=== PATIENT | male | born 1965 | race Caucasian/White ===

== ENCOUNTER → 2016-03-17 | Outpatient (REF) | payer MEDICAID ==
[2016-03-17 12:52] LABS: BASO % 0.3 % (0.0-1.0); EOS # 0.2 K/mm3 (0.0-0.50); EOS % 3.7 % (0.0-3.0); LARGE UNSTAINED CELL # 0.1 K/mm3 (0.0-0.4); LARGE UNSTAINED CELL % 1.8 % (0.0-4.0); MEAN CORPUSCULAR HEMOGLOBIN 26.4 pg (27.0-33.0); MONO # 0.3 K/mm3 (0.0-0.8); MONO % 4.3 % (0.0-5.0); NEUTROPHILS % 59.9 % (36.0-66.0); PLATELET COUNT, AUTOMATED 348 k/mm3 (150-450); RED CELL DISTRIBUTION WIDTH 14.6 % (11.5-14.5); WHITE BLOOD COUNT 6.7 K/mm3 (4.0-10.0)
[2016-03-17 13:45] LABS: PERCENT SATURATION 17.5 % (19.7-37.4)
== END ==
LOC: M SFHCADAM 09:48
PROVIDERS: ATTEND Physician Assistant Medical
DX: D50.9 Iron deficiency anemia, unspecified (principal)

== ENCOUNTER → 2016-04-28 | Outpatient (REF) ==
--- NOTE | 2016-04-28 11:41 | REP ---
PARTIAL LUMBAR SPINE, FOUR VIEWS: HISTORY: Degenerative disc disease. COMPARISON: 11/10/2007. There is no acute fracture or subluxation. The L3-4 through L5-S1 intervertebral discs are decreased in height consistent with disc degeneration. Osteophytes are present on L3 and 4. Calcifications are present overlying the right kidney consistent with nephrolithiasis. IMPRESSION: 1. Degenerative change as described above. 2. Right nephrolithiasis. Signed by Martin Schroeder MD 04/28/2016 11:45 A
== END ==
LOC: M SMT 10:22
PROVIDERS: ATTEND Internal Medicine
DX: Z02.1 Encounter for pre-employment examination (principal)

== ENCOUNTER → 2016-06-03 | Outpatient (CLI) | payer OTHER ==
[2016-06-03 16:54] LABS: ANION GAP 10 MEQ/L (8-16); BLOOD UREA NITROGEN 7 MG/DL (7-18); CALCIUM LEVEL 9.2 MG/DL (8.5-10.1); CARBON DIOXIDE LEVEL 24 MEQ/L (21-32); CHLORIDE LEVEL 108 MEQ/L (98-107); GLOMERULAR FILTRATION RATE > 60.0 (>60); GLUCOSE, FASTING 117 MG/DL (70-105); POTASSIUM SERUM 3.5 MEQ/L (3.5-5.1); SODIUM LEVEL 142 MEQ/L (136-145)
--- NOTE | 2016-06-04 05:40 | ECGEPIP ---
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
== END ==
LOC: M LAB 15:45
PROVIDERS: ATTEND Orthopaedic Surgery
DX: Z01.818 Encounter for other preprocedural examination (principal); I10 Essential (primary) hypertension

== ENCOUNTER → 2016-06-22 | Outpatient (REF) | payer MEDICAID ==
[2016-06-22 13:53] LABS: BASO % 0.3 % (0.0-1.0); EOS # 0.2 K/mm3 (0.0-0.50); EOS % 2.4 % (0.0-3.0); LARGE UNSTAINED CELL # 0.1 K/mm3 (0.0-0.4); LARGE UNSTAINED CELL % 1.6 % (0.0-4.0); LYMPH # 2.3 K/mm3 (1.5-4.5); LYMPH % 30.7 % (24.0-44.0); MEAN CORPUSCULAR HGB CONC 32.3 g/dl (32.0-36.5); MEAN CORPUSCULAR VOLUME 80.4 fl (80.0-96.0); MONO # 0.4 K/mm3 (0.0-0.8); NEUTROPHILS # 4.4 K/mm3 (1.8-7.7); PLATELET COUNT, AUTOMATED 308 k/mm3 (150-450); RED CELL DISTRIBUTION WIDTH 15.1 % (11.5-14.5); WHITE BLOOD COUNT 7.4 K/mm3 (4.0-10.0)
[2016-06-22 14:21] LABS: PERCENT SATURATION 13.7 % (19.7-37.4)
== END ==
LOC: M SFHCADAM 07:39
PROVIDERS: ATTEND Physician Assistant Medical
DX: D50.9 Iron deficiency anemia, unspecified (principal)

== ENCOUNTER 2016-07-13 07:50 | Outpatient (CLI) | payer OTHER ==
[~2016-07-13 07:50] MED LIST: ATOR1TAB18 PO; FERR325T3 PO; IMIT100T PO; LISI20TA PO; OXYC1TAB23 PO; PAXI20TA3 PO; PRED1SUS OS; TOPA50TA7 PO; TRAM50TA2 PO; VITA1TAB27 PO
[2016-07-13] MEDS ORDERED: IRON SUCROSE 25 MG in NS 50 ML IV ONE (08:30)
[2016-07-13] MEDS ORDERED: IRON SUCROSE 75 MG in NS 100 ML IV ONE (09:30)
[2016-07-13] MEDS ORDERED: FISH1000 PO (11:30)
== END 2016-07-13 11:15 | disposition home or self-care (01) ==
LOC: M INFU 07:50
PROVIDERS: ATTEND Physician Assistant Medical
DX: D50.9 Iron deficiency anemia, unspecified (principal); Z87.891 Personal history of nicotine dependence; Z79.899 Other long term (current) drug therapy
CPT/HCPCS: 96365; 96366; J1756

== ENCOUNTER → 2016-07-15 | Outpatient (CLI) | payer OTHER ==
[~2016-07-15] MED LIST changes: +FISH1000 PO
[2016-07-15 11:33] LABS: FREE T4 0.86 NG/DL (0.76-1.46)
== END ==
LOC: M LAB 10:26
PROVIDERS: ATTEND Physician Assistant Medical
DX: D64.9 Anemia, unspecified (principal)

== ENCOUNTER → 2016-07-19 | Outpatient (REF) | payer OTHER | LOC: M LAB REF 09:23 | PROVIDERS: ATTEND Physician Assistant Medical | DX: R19.8 Other specified symptoms and signs involving the digestive system and abdomen (principal) ==

== ENCOUNTER 2016-07-20 07:58 | Outpatient (CLI) | payer OTHER ==
[~2016-07-20] VITALS: Ht 152.4 cm; Wt 129.0 kg
[2016-07-20] MEDS ORDERED: IRON SUCROSE 200 MG in NS 200 ML IV ONE (09:00)
== END 2016-07-20 10:40 | disposition home or self-care (01) ==
LOC: M INFU 07:58
PROVIDERS: ATTEND Physician Assistant Medical
DX: D50.9 Iron deficiency anemia, unspecified (principal); Z79.899 Other long term (current) drug therapy; Z87.891 Personal history of nicotine dependence
CPT/HCPCS: 96365; 96366; J1756

== ENCOUNTER → 2016-07-24 | Outpatient (CLI) | payer OTHER ==
[~2016-07-24] MED LIST changes: +E-Z-PAQUE 96% w/w SUSP 176GM BTL As Ordered ONE
--- NOTE | 2016-07-24 16:27 | REP ---
SMALL BOWEL FOLLOW-THROUGH: The procedure was performed under the direct supervision of Dr. Mckee. The images were reviewed with Dr. Mckee. The supervisor gelatin plant film shows no organomegaly or pathological masses. The intestinal gas pattern is nonspecific. There are two calcifications overlying the right kidney likely representing nephrolithiasis. Liquid barium was administered and the barium column was followed through the small bowel to the level of the terminal ileum. Small bowel transit time was approximately 70 minutes. During fluoroscopy gentle palpation shows all loops are freely movable and pliable. There are no fixed or angulated loops. The small bowel mucosal pattern is normal in course and caliber. There is no transition to suggest a partial small bowel obstruction. Spot filming of terminal ileum shows it to be unremarkable. IMPRESSION: There are two calcifications overlying the right kidney likely representing nephrolithiasis, otherwise unremarkable small bowel follow through examination. 1 minutes and 8 seconds of fluoroscopy time was utilized for this procedure. Reviewed by ADDIE Mckeon 07/24/2016 04:49 PEdited and Signed by Akhil Mckee MD 07/27/2016 08:34 A
== END ==
LOC: M RAD 08:25
PROVIDERS: ATTEND Physician Assistant Medical
DX: R19.8 Other specified symptoms and signs involving the digestive system and abdomen (principal); D64.9 Anemia, unspecified; N20.0 Calculus of kidney

== ENCOUNTER 2016-07-27 07:58 | Outpatient (CLI) | payer OTHER ==
[~2016-07-27] VITALS: Ht 152.4 cm; Wt 129.5 kg
[~2016-07-27 07:58] MED LIST changes: -E-Z-PAQUE 96% w/w SUSP 176GM BTL As Ordered ONE
[2016-07-27] MEDS ORDERED: IRON SUCROSE 200 MG in NS 200 ML IV ONE (08:30)
== END 2016-07-27 10:50 | disposition home or self-care (01) ==
LOC: M INFU 07:58
PROVIDERS: ATTEND Physician Assistant Medical
DX: D50.9 Iron deficiency anemia, unspecified (principal); Z87.891 Personal history of nicotine dependence; Z79.899 Other long term (current) drug therapy
CPT/HCPCS: 96365; 96366; J1756

== ENCOUNTER → 2016-07-31 | Outpatient (CLI) | payer OTHER ==
[~2016-07-31] VITALS: Ht 177.8 cm; Wt 133.8 kg
[~2016-07-31] MED LIST changes: +LIDOCAINE 2% INJ 100 MG/5 ML SDV (FOR ANES.) As Ordered ONE; +NS 1,000 ML IV SCH; +PROPOFOL 200 MG/20 ML VIAL As Ordered ONE
--- NOTE | 2016-07-31 09:07 | ROOR ---
Patient Name: Jose Butler Procedure Date: 07/31/2016 8:55 AM Date of : 1965 Age: 51 Room: [facility] Gender: Male Note Status: Finalized Procedure: Upper GI endoscopy Indications: Iron deficiency anemia Providers: Cj OLIVO MD Referring MD: YOLANDE Melendez Requesting Provider: Medicines: Monitored Anesthesia Care Complications: No immediate complications. Procedure: Pre-Anesthesia Assessment: - The heart rate, respiratory rate, oxygen saturations, blood pressure, adequacy of pulmonary ventilation, and response to care were monitored throughout the procedure. The Endoscope was introduced through the mouth, and advanced to the third part of duodenum. The upper GI endoscopy was accomplished without difficulty. The patient tolerated the procedure well. Findings: The esophagus was normal. The stomach was normal. The examined duodenum was normal. Impression: - Normal esophagus. - Normal stomach. - Normal examined duodenum. - No specimens collected. Recommendation: - Continue present medications. Cj Olivo MD Cj OLIVO MD 07/31/2016 9:06:39 AM This report has been signed electronically. Number of Addenda: 0 Note Initiated On: 07/31/2016 8:55 AM Estimated Blood Loss: Estimated blood loss: none.
--- NOTE | 2016-07-31 09:26 | ROOR ---
Patient Name: Jose Butler Procedure Date: 07/31/2016 8:57 AM Date of : 1965 Age: 51 Room: [facility] Gender: Male Note Status: Finalized Procedure: Colonoscopy Indications: Iron deficiency anemia Providers: Cj OLIVO MD Referring MD: YOLANDE Melendez Requesting Provider: Medicines: Monitored Anesthesia Care Complications: No immediate complications. Procedure: Pre-Anesthesia Assessment: - The heart rate, respiratory rate, oxygen saturations, blood pressure, adequacy of pulmonary ventilation, and response to care were monitored throughout the procedure. The Colonoscope was introduced through the anus and advanced to 5 cm into the ileum. The colonoscopy was performed without difficulty. The patient tolerated the procedure well. The quality of the bowel preparation was good. Findings: The perianal and digital rectal examinations were normal. (Exam: Complete, Prep: Good or Excellent.) Two sessile polyps were found in the cecum. The polyps were diminutive in size. These polyps were removed with a cold snare. Resection and retrieval were complete. A few medium-mouthed diverticula were found in the sigmoid colon. Small Internal Hemorrhoids. The exam was otherwise without abnormality on direct and retroflexion views. Impression: - Two diminutive polyps in the cecum, removed with a cold snare. Resected and retrieved. - Mild diverticulosis in the sigmoid colon. - Small Internal Hemorrhoids. - The colon is otherwise normal on direct and retroflexion views. Recommendation: - Telephone endoscopist for pathology results in 2 weeks. - If the pathology report reveals adenomatous tissue, then repeat the colonoscopy for surveillance in 5 years. - If the pathology report indicates hyperplastic polyp, then repeat colonoscopy for screening purposes in 10 years. Cj Olivo MD Cj OLIVO MD 07/31/2016 9:26:07 AM This report has been signed electronically. Number of Addenda: 0 Note Initiated On: 07/31/2016 8:57 AM Estimated Blood Loss: Estimated blood loss: none.
[2016-07-31 09:45] VITALS: BP 134/88
== END | disposition home or self-care (01) ==
LOC: M OPP 08:17
PROVIDERS: ATTEND Internal Medicine Gastroenterology
DX: D50.9 Iron deficiency anemia, unspecified (principal); D12.0 Benign neoplasm of cecum; K57.30 Diverticulosis of large intestine without perforation or abscess without bleeding; K64.8 Other hemorrhoids; R19.4 Change in bowel habit; E78.5 Hyperlipidemia, unspecified; R60.0 Localized edema; R12 Heartburn; R23.3 Spontaneous ecchymoses; M19.90 Unspecified osteoarthritis, unspecified site; M54.2 Cervicalgia; M54.89 Other dorsalgia; F41.9 Anxiety disorder, unspecified; F32.9 Major depressive disorder, single episode, unspecified; G43.909 Migraine, unspecified, not intractable, without status migrainosus; G47.8 Other sleep disorders; G47.30 Sleep apnea, unspecified; R06.83 Snoring; Z79.899 Other long term (current) drug therapy

== ENCOUNTER → 2016-08-06 | Outpatient (REF) | payer OTHER ==
[~2016-08-06] MED LIST changes: -LIDOCAINE 2% INJ 100 MG/5 ML SDV (FOR ANES.) As Ordered ONE; -NS 1,000 ML IV SCH; -PROPOFOL 200 MG/20 ML VIAL As Ordered ONE
[2016-08-06 16:12] LABS: ANION GAP 12 MEQ/L (8-16); BLOOD UREA NITROGEN 14 MG/DL (7-18); CALCIUM LEVEL 8.9 MG/DL (8.5-10.1); CARBON DIOXIDE LEVEL 23 MEQ/L (21-32); CHLORIDE LEVEL 110 MEQ/L (98-107); CREATININE FOR GFR 0.77 MG/DL (0.70-1.30); GLOMERULAR FILTRATION RATE > 60.0 (>56); GLUCOSE, FASTING 90 MG/DL (70-105); SODIUM LEVEL 145 MEQ/L (136-145)
== END ==
LOC: M LABDRAW1 15:40
PROVIDERS: ATTEND Orthopaedic Surgery
DX: Z01.818 Encounter for other preprocedural examination (principal)

== ENCOUNTER → 2016-09-11 | Outpatient (REF) | payer OTHER ==
[~2016-09-11] MED LIST changes: -ATOR1TAB18 PO; +ATOR80TA59 PO; +PAXI20TA29 PO; -PAXI20TA3 PO; -TOPA50TA7 PO; +TOPA50TA8 PO
[2016-09-11 12:09] LABS: BASO % 0.3 % (0.0-1.0); EOS # 0.2 K/mm3 (0.0-0.50); LARGE UNSTAINED CELL # 0.1 K/mm3 (0.0-0.4); LARGE UNSTAINED CELL % 1.2 % (0.0-4.0); LYMPH # 2.4 K/mm3 (1.5-4.5); LYMPH % 27.5 % (24.0-44.0); MEAN CORPUSCULAR HGB CONC 33.6 g/dl (32.0-36.5); MEAN CORPUSCULAR VOLUME 80.2 fl (80.0-96.0); MONO # 0.4 K/mm3 (0.0-0.8); MONO % 4.8 % (0.0-5.0); NEUTROPHILS # 5.4 K/mm3 (1.8-7.7); NEUTROPHILS % 64.2 % (36.0-66.0); PLATELET COUNT, AUTOMATED 333 k/mm3 (150-450); RED CELL DISTRIBUTION WIDTH 15.1 % (11.5-14.5); WHITE BLOOD COUNT 8.5 K/mm3 (4.0-10.0)
[2016-09-11 12:25] LABS: ALBUMIN 3.7 GM/DL (3.2-5.2); ALBUMIN/GLOBULIN RATIO 0.95 (1.00-1.93); ALKALINE PHOSPHATASE 121 U/L (45-117); ALT/SGPT 50 U/L (12-78); ANION GAP 9 MEQ/L (8-16); AST/SGOT 26 U/L (15-37); BILIRUBIN,TOTAL 0.4 MG/DL (0.2-1.0); BLOOD UREA NITROGEN 12 MG/DL (7-18); CALCIUM LEVEL 9.2 MG/DL (8.5-10.1); CARBON DIOXIDE LEVEL 24 MEQ/L (21-32); CHLORIDE LEVEL 109 MEQ/L (98-107); GLOMERULAR FILTRATION RATE > 60.0 (>56); GLUCOSE, FASTING 109 MG/DL (70-105); POTASSIUM SERUM 3.7 MEQ/L (3.5-5.1); SODIUM LEVEL 142 MEQ/L (136-145); TOTAL PROTEIN 7.6 GM/DL (6.4-8.2)
== END ==
LOC: M LABDRAW1 10:10
PROVIDERS: ATTEND Psychiatry & Neurology Neurology
DX: G43.711 Chronic migraine without aura, intractable, with status migrainosus (principal); G47.33 Obstructive sleep apnea (adult) (pediatric); G44.221 Chronic tension-type headache, intractable

== ENCOUNTER → 2016-09-24 | Outpatient (REF) | payer MEDICAID ==
[2016-09-24 12:41] LABS: BASO % 0.3 % (0.0-1.0); EOS # 0.1 K/mm3 (0.0-0.50); EOS % 1.7 % (0.0-3.0); LARGE UNSTAINED CELL # 0.1 K/mm3 (0.0-0.4); LARGE UNSTAINED CELL % 1.4 % (0.0-4.0); LYMPH # 2.3 K/mm3 (1.5-4.5); LYMPH % 28.9 % (24.0-44.0); MEAN CORPUSCULAR HEMOGLOBIN 27.4 pg (27.0-33.0); MEAN CORPUSCULAR HGB CONC 33.5 g/dl (32.0-36.5); MEAN CORPUSCULAR VOLUME 81.7 fl (80.0-96.0); MONO # 0.4 K/mm3 (0.0-0.8); NEUTROPHILS # 4.8 K/mm3 (1.8-7.7); NEUTROPHILS % 62.7 % (36.0-66.0); PLATELET COUNT, AUTOMATED 322 k/mm3 (150-450); RED CELL DISTRIBUTION WIDTH 15.1 % (11.5-14.5); WHITE BLOOD COUNT 7.6 K/mm3 (4.0-10.0)
[2016-09-24 13:19] LABS: PERCENT SATURATION 18.8 % (19.7-37.4)
== END ==
LOC: M SFHCADAM 08:17
PROVIDERS: ATTEND Physician Assistant Medical
DX: D50.9 Iron deficiency anemia, unspecified (principal)

== ENCOUNTER 2016-11-05 14:19 | Outpatient (CLI) | payer MEDICAID, OTHER ==
[2016-11-05] MEDS ORDERED: IRON SUCROSE 25 MG in NS 50 ML IV ONE (15:30)
[2016-11-05 15:46] VITALS: BP 122/74
[2016-11-05 15:52] VITALS: BP 136/76
[2016-11-05 16:00] VITALS: BP 132/75
[2016-11-05] MEDS: IRON SUCROSE 75 MG in NS 100 ML IV ONE ×2 (16:30→17:55)
[2016-11-05 17:55] VITALS: BP 136/82
[2016-11-05 18:15] VITALS: BP 134/79
== END 2016-11-05 18:30 | disposition home or self-care (01) ==
LOC: M INFU 14:19 → M MSPAV 14:20 → M INFU 18:30
PROVIDERS: ATTEND Physician Assistant Medical
DX: D50.9 Iron deficiency anemia, unspecified (principal); Z79.899 Other long term (current) drug therapy
CPT/HCPCS: 96365; 96366; J1756

== ENCOUNTER 2016-12-21 11:45 | Outpatient (CLI) | payer OTHER ==
[~2016-12-21] VITALS: Ht 177.8 cm; Wt 129.5 kg
[2016-12-21] MEDS: IRON SUCROSE 200 MG in NS 100 ML IV ONE (12:37)
== END 2016-12-21 14:30 | disposition home or self-care (01) ==
LOC: M INFU 11:45
PROVIDERS: ATTEND Physician Assistant Medical
DX: D50.9 Iron deficiency anemia, unspecified (principal); Z87.891 Personal history of nicotine dependence; Z79.899 Other long term (current) drug therapy
CPT/HCPCS: 96365; 96366; J1756

== ENCOUNTER 2016-12-28 11:42 | Outpatient (CLI) | payer OTHER ==
[~2016-12-28] VITALS: Ht 177.8 cm; Wt 129.5 kg
[2016-12-28] MEDS ORDERED: IRON SUCROSE 200 MG in NS 200 ML IV ONE (13:00)
== END 2016-12-28 15:20 | disposition home or self-care (01) ==
LOC: M INFU 11:42
PROVIDERS: ATTEND Physician Assistant Medical
DX: D50.9 Iron deficiency anemia, unspecified (principal); I10 Essential (primary) hypertension; E78.00 Pure hypercholesterolemia, unspecified; E55.9 Vitamin D deficiency, unspecified; R51 Headache; R73.01 Impaired fasting glucose; M25.561 Pain in right knee; M23.611 Other spontaneous disruption of anterior cruciate ligament of right knee; Z87.820 Personal history of traumatic brain injury; Z79.891 Long term (current) use of opiate analgesic; Z87.891 Personal history of nicotine dependence
CPT/HCPCS: 96365; 96366; J1756

== ENCOUNTER 2017-01-25 08:01 | Outpatient (CLI) | payer OTHER ==
[~2017-01-25] VITALS: Ht 177.8 cm; Wt 129.5 kg
[2017-01-25] MEDS ORDERED: IRON SUCROSE 200 MG in NS 200 ML IV ONE (09:00)
[2017-01-25] MEDS ORDERED: IRON SUCROSE 25 MG in NS 50 ML IV ONE (09:00)
[2017-01-25] MEDS ORDERED: IRON SUCROSE 475 MG in NS 250 ML IV ONE (10:00)
== END 2017-01-25 11:45 | disposition home or self-care (01) ==
LOC: M INFU 08:01
PROVIDERS: ATTEND Physician Assistant Medical
DX: D50.9 Iron deficiency anemia, unspecified (principal); Z79.899 Other long term (current) drug therapy
CPT/HCPCS: 96365; 96366; J1756

== ENCOUNTER 2017-02-24 12:01 | Outpatient (CLI) | payer OTHER ==
[~2017-02-24] VITALS: Ht 177.8 cm; Wt 129.5 kg
[2017-02-24] MEDS ORDERED: IRON SUCROSE 200 MG in NS 250 ML IV ONE (12:30)
== END 2017-02-24 15:00 | disposition home or self-care (01) ==
LOC: M INFU 12:01
PROVIDERS: ATTEND Physician Assistant Medical
DX: D50.9 Iron deficiency anemia, unspecified (principal); Z79.891 Long term (current) use of opiate analgesic; Z79.899 Other long term (current) drug therapy; I10 Essential (primary) hypertension
CPT/HCPCS: 96365; 96366; J1756

== ENCOUNTER → 2017-05-14 | Outpatient (REF) | payer OTHER ==
[2017-05-14 12:51] LABS: BASO % 0.3 % (0.0-1.0); EOS # 0.2 10^3/uL (0.0-0.50); EOS % 1.4 % (0.0-3.0); HEMATOCRIT 45.1 % (42.0-52.0); HEMOGLOBIN 14.8 g/dl (14.0-18.0); IMMATURE GRANULOCYTE % 0.3 % (0-3.0); LYMPH # 2.3 10^3/uL (1.5-4.5); LYMPH % 21.3 % (24.0-44.0); MEAN CORPUSCULAR HEMOGLOBIN 26.8 pg (27.0-33.0); MEAN CORPUSCULAR HGB CONC 32.8 g/dl (32.0-36.5); MEAN CORPUSCULAR VOLUME 81.7 fl (80.0-96.0); MONO # 0.6 10^3/uL (0.0-0.8); MONO % 5.7 % (0.0-5.0); NEUTROPHILS # 7.6 10^3/uL (1.8-7.7); PLATELET COUNT, AUTOMATED 385 10^3/uL (150-450); RED BLOOD COUNT 5.52 10^6/uL (4.30-6.10); RED CELL DISTRIBUTION WIDTH 13.8 % (11.5-14.5); WHITE BLOOD COUNT 10.7 10^3/uL (4.0-10.0)
[2017-05-14 13:06] LABS: ALBUMIN 4.3 GM/DL (3.2-5.2); ALKALINE PHOSPHATASE 125 U/L (45-117); ALT/SGPT 24 U/L (12-78); ANION GAP 8 MEQ/L (8-16); AST/SGOT 13 U/L (7-37); BILIRUBIN,TOTAL 0.4 MG/DL (0.2-1.0); BLOOD UREA NITROGEN 13 MG/DL (7-18); CALCIUM LEVEL 9.2 MG/DL (8.5-10.1); CARBON DIOXIDE LEVEL 26 MEQ/L (21-32); CHLORIDE LEVEL 109 MEQ/L (98-107); CREATININE FOR GFR 0.94 MG/DL (0.70-1.30); GLOMERULAR FILTRATION RATE > 60.0 (>56); GLUCOSE, FASTING 102 MG/DL (70-100); POTASSIUM SERUM 3.7 MEQ/L (3.5-5.1); SODIUM LEVEL 143 MEQ/L (136-145); TOTAL PROTEIN 8.2 GM/DL (6.4-8.2)
== END ==
LOC: M LABNEURO 11:21
DX: G47.33 Obstructive sleep apnea (adult) (pediatric) (principal); G44.229 Chronic tension-type headache, not intractable; G43.009 Migraine without aura, not intractable, without status migrainosus

== ENCOUNTER → 2017-08-05 | Outpatient (REF) | payer OTHER ==
[2017-08-05 20:09] LABS: BASO % 0.4 % (0.0-1.0); EOS # 0.3 10^3/uL (0.0-0.50); EOS % 3.2 % (0.0-3.0); HEMATOCRIT 41.7 % (42.0-52.0); HEMOGLOBIN 13.8 g/dl (13.5-17.5); IMMATURE GRANULOCYTE % 0.3 % (0-3.0); LYMPH # 2.8 10^3/uL (1.5-4.5); LYMPH % 36.5 % (24.0-44.0); MEAN CORPUSCULAR HEMOGLOBIN 27.5 pg (27.0-33.0); MEAN CORPUSCULAR HGB CONC 33.1 g/dl (32.0-36.5); MEAN CORPUSCULAR VOLUME 83.1 fl (80.0-96.0); MONO # 0.5 10^3/uL (0.0-0.8); MONO % 6.3 % (0.0-5.0); NEUTROPHILS # 4.1 10^3/uL (1.8-7.7); NEUTROPHILS % 53.3 % (36.0-66.0); PLATELET COUNT, AUTOMATED 387 10^3/uL (150-450); RED BLOOD COUNT 5.02 10^6/uL (4.30-6.10); RED CELL DISTRIBUTION WIDTH 14.2 % (11.5-14.5); WHITE BLOOD COUNT 7.8 10^3/uL (4.0-10.0)
[2017-08-05 20:26] LABS: ALBUMIN 3.8 GM/DL (3.2-5.2); ALKALINE PHOSPHATASE 145 U/L (45-117); ALT/SGPT 21 U/L (12-78); ANION GAP 8 MEQ/L (8-16); AST/SGOT 10 U/L (7-37); BILIRUBIN,TOTAL 0.3 MG/DL (0.2-1.0); BLOOD UREA NITROGEN 15 MG/DL (7-18); CALCIUM LEVEL 8.8 MG/DL (8.5-10.1); CARBON DIOXIDE LEVEL 25 MEQ/L (21-32); CHLORIDE LEVEL 113 MEQ/L (98-107); CHOLESTEROL LEVEL 155 MG/DL (<200); CHOLESTEROL RISK RATIO 3.604 (<5); CREATININE FOR GFR 1.03 MG/DL (0.70-1.30); FERRITIN 938 NG/ML (26-388); GLOMERULAR FILTRATION RATE > 60.0 (>56); GLUCOSE, FASTING 129 MG/DL (70-100); HDL CHOLESTEROL 43 MG/DL (>40); IRON (FE) 58 UG/DL (65-175); LDL CHOLESTEROL 73.6 MG/DL (<100); NON-HDL-C 112 MG/DL; PERCENT SATURATION 20.4 % (19.7-50.0); POTASSIUM SERUM 3.7 MEQ/L (3.5-5.1); SODIUM LEVEL 146 MEQ/L (136-145); TOTAL 25(OH) VITAMIN D 28.1 NG/ML (30.0-100.0); TOTAL IRON BINDING CAPACITY 285 UG/DL (250-450); TRIGLYCERIDES LEVEL 192 MG/DL (<150)
== END ==
LOC: M SFHCADAM 16:09
DX: D50.9 Iron deficiency anemia, unspecified (principal); E78.4 Other hyperlipidemia; I10 Essential (primary) hypertension; E55.9 Vitamin D deficiency, unspecified

== ENCOUNTER → 2017-08-25 | Outpatient (CLI) | payer OTHER | LOC: M PAIN 14:00 | DX: M79.1 Myalgia (principal); M25.512 Pain in left shoulder; M54.5 Low back pain; M54.2 Cervicalgia; G89.29 Other chronic pain; I10 Essential (primary) hypertension; E78.5 Hyperlipidemia, unspecified; F32.9 Major depressive disorder, single episode, unspecified; F41.9 Anxiety disorder, unspecified; R73.01 Impaired fasting glucose; E55.9 Vitamin D deficiency, unspecified; G47.33 Obstructive sleep apnea (adult) (pediatric); E66.01 Morbid (severe) obesity due to excess calories; Z68.41 Body mass index [BMI] 40.0-44.9, adult; Z79.899 Other long term (current) drug therapy; Z87.820 Personal history of traumatic brain injury; Z87.891 Personal history of nicotine dependence | CPT/HCPCS: G0463 ==

== ENCOUNTER → 2017-09-22 | Outpatient (CLI) | payer OTHER | LOC: M PAIN 13:30 | DX: G89.29 Other chronic pain (principal); M79.1 Myalgia; M25.512 Pain in left shoulder; M54.5 Low back pain; M54.2 Cervicalgia; I10 Essential (primary) hypertension; E78.5 Hyperlipidemia, unspecified; F32.9 Major depressive disorder, single episode, unspecified; F41.9 Anxiety disorder, unspecified; R73.01 Impaired fasting glucose; E66.01 Morbid (severe) obesity due to excess calories; D50.9 Iron deficiency anemia, unspecified; G47.33 Obstructive sleep apnea (adult) (pediatric); M25.561 Pain in right knee; M25.562 Pain in left knee; Z68.41 Body mass index [BMI] 40.0-44.9, adult; Z87.891 Personal history of nicotine dependence; Z79.891 Long term (current) use of opiate analgesic; Z79.899 Other long term (current) drug therapy | CPT/HCPCS: G0463 ==

== ENCOUNTER → 2017-11-17 | Outpatient (CLI) | payer OTHER | LOC: M PAIN 10:30 | DX: M53.3 Sacrococcygeal disorders, not elsewhere classified (principal); M54.40 Lumbago with sciatica, unspecified side; I10 Essential (primary) hypertension; E78.5 Hyperlipidemia, unspecified; F41.9 Anxiety disorder, unspecified; F32.9 Major depressive disorder, single episode, unspecified; R73.01 Impaired fasting glucose; E66.01 Morbid (severe) obesity due to excess calories; Z68.41 Body mass index [BMI] 40.0-44.9, adult; E55.9 Vitamin D deficiency, unspecified; D50.9 Iron deficiency anemia, unspecified; G47.33 Obstructive sleep apnea (adult) (pediatric); M19.011 Primary osteoarthritis, right shoulder; M25.561 Pain in right knee; M25.562 Pain in left knee; Z87.891 Personal history of nicotine dependence; Z79.891 Long term (current) use of opiate analgesic | CPT/HCPCS: G0463 ==

== ENCOUNTER → 2017-12-16 | Outpatient (CLI) | payer OTHER | LOC: M PAIN 09:30 | DX: M53.3 Sacrococcygeal disorders, not elsewhere classified (principal); M54.40 Lumbago with sciatica, unspecified side; G89.29 Other chronic pain; I10 Essential (primary) hypertension; E78.5 Hyperlipidemia, unspecified; F32.9 Major depressive disorder, single episode, unspecified; F41.9 Anxiety disorder, unspecified; R73.01 Impaired fasting glucose; E55.9 Vitamin D deficiency, unspecified; D50.9 Iron deficiency anemia, unspecified; G47.33 Obstructive sleep apnea (adult) (pediatric); F17.220 Nicotine dependence, chewing tobacco, uncomplicated; Z79.891 Long term (current) use of opiate analgesic; Z79.899 Other long term (current) drug therapy; Z87.820 Personal history of traumatic brain injury | CPT/HCPCS: G0463 ==

== ENCOUNTER → 2017-12-28 | Outpatient (CLI) | payer OTHER ==
[~2017-12-28] MED LIST changes: -ATOR80TA59 PO; +BUPIVACAINE HCL 0.25% 30 ML VIAL As Ordered; -FERR325T3 PO; -FISH1000 PO; -IMIT100T PO; +ISOVUE-M 300 61% 15ML VIAL (Q9967) As Ordered; +LIDOCAINE 1% SDV INJ 30 ML VIAL As Ordered; -LISI20TA PO; -OXYC1TAB23 PO; -PAXI20TA29 PO; -PRED1SUS OS; -TOPA50TA8 PO; -TRAM50TA2 PO; +TRIAMCINOLONE ACETONIDE SUSP 40 MG/ML VIAL (J3301) As Ordered; -VITA1TAB27 PO; +diazePAM 5 MG TAB As Ordered; +oxyCODONE 5MG TAB As Ordered
== END ==
LOC: M PAIN 10:45
DX: G89.29 Other chronic pain (principal); M46.1 Sacroiliitis, not elsewhere classified; M53.88 Other specified dorsopathies, sacral and sacrococcygeal region; I10 Essential (primary) hypertension; E78.5 Hyperlipidemia, unspecified; F32.9 Major depressive disorder, single episode, unspecified; F41.9 Anxiety disorder, unspecified; R73.01 Impaired fasting glucose; E55.9 Vitamin D deficiency, unspecified; D50.9 Iron deficiency anemia, unspecified; G47.33 Obstructive sleep apnea (adult) (pediatric); Z79.891 Long term (current) use of opiate analgesic; Z79.899 Other long term (current) drug therapy; Z87.820 Personal history of traumatic brain injury; Z87.891 Personal history of nicotine dependence
CPT/HCPCS: J3301

== ENCOUNTER → 2018-01-11 | Outpatient (CLI) | payer OTHER | LOC: M PAIN 13:45 | DX: M60.821 Other myositis, right upper arm (principal); G89.29 Other chronic pain; M25.511 Pain in right shoulder; I10 Essential (primary) hypertension; E78.5 Hyperlipidemia, unspecified; R73.01 Impaired fasting glucose; E55.9 Vitamin D deficiency, unspecified; D50.9 Iron deficiency anemia, unspecified; G47.33 Obstructive sleep apnea (adult) (pediatric); F32.9 Major depressive disorder, single episode, unspecified; F41.9 Anxiety disorder, unspecified; F17.220 Nicotine dependence, chewing tobacco, uncomplicated; Z79.891 Long term (current) use of opiate analgesic; Z79.899 Other long term (current) drug therapy; Z87.820 Personal history of traumatic brain injury | CPT/HCPCS: G0463 ==

== ENCOUNTER → 2018-02-23 | Outpatient (CLI) | payer OTHER ==
[~2018-02-23] MED LIST changes: +ATOR80TA59 PO; +BUPIVACAINE HCL 0.25% 10 ML VIAL As Ordered ONE; -BUPIVACAINE HCL 0.25% 30 ML VIAL As Ordered; +BUPIVACAINE HCL 0.25% 30 ML VIAL As Ordered ONE; +FERR325T3 PO; +FISH1000 PO; +IMIT100T PO; -ISOVUE-M 300 61% 15ML VIAL (Q9967) As Ordered; -LIDOCAINE 1% SDV INJ 30 ML VIAL As Ordered; +LISI20TA PO; +OXYC1TAB23 PO; +PAXI20TA29 PO; +PRED1SUS2 OS; +TOPA50TA8 PO; +TRAM50TA2 PO; -TRIAMCINOLONE ACETONIDE SUSP 40 MG/ML VIAL (J3301) As Ordered; +TRIAMCINOLONE ACETONIDE SUSP 40 MG/ML VIAL (J3301) As Ordered ONE; +VITA1TAB27 PO; -diazePAM 5 MG TAB As Ordered; +diazePAM 5 MG TAB As Ordered ONE; -oxyCODONE 5MG TAB As Ordered; +oxyCODONE 5MG TAB As Ordered ONE
--- NOTE | 2018-03-14 00:03 | ECWPNPC ---
PATIENT NAME: DULCE WYNNE : 1965 GENDER: MALE VISIT DATE: 02/23/2018 DISCHARGE DATE: 02/23/18 1528 VISIT LOCKED DATE TIME: PHYSICIAN: LOLA ROSS MD RESOURCE: LOLA ROSS MD REASON FOR APPOINTMENT 1. RIGHT SHOULDER TPI W/C HISTORY OF PRESENT ILLNESS HISTORY OF PRESENT ILLNESS: PAIN THE PATIENT DESCRIBES THE PAIN... FALL RISK SCREENING: SCREENING :NO FALLS IN THE PAST YEAR CURRENT MEDICATIONS TAKING VITAMIN D3 44304 UNITS CAPSULE 1 CAPSULE ORALLY ONCE A WEEKLY, NOTES: 02/22/18 0800 TAKING PAXIL 40 MG TABLET 1 TABLET IN THE MORNING ORALLY ONCE A DAY, NOTES: 02/22/181999 TAKING MAGNESIUM 400 MG TABLET 1 TAB ORALLY DAILY, NOTES: 02/22/181999 TAKING SUMATRIPTAN SUCCINATE 100 MG TABLET 1 TABLET NEEDED ORALLY TWICE A DAY, NOTES: 02/18/18 TAKING TOPIRAMATE 200 MG TABLET 1 TABLET ORALLY AT BEDTIME, NOTES: 02/22/181999 TAKING PAROXETINE HCL 40 MG TABLET TAKE ONE TABLET BY MOUTH EVERY MORNING , NOTES: 02/22/181999 TAKING MAY USE SOOTHEYE OINTMENT IN LEFT EYE BEFORE BEDTIME TAKING MAY USE _ - ANTI BIOTIC EYE DROP LEFT EYE FOUR TIMES DAILY TAKING REFRESH EYE ITCH RELIEF TAKING FISH OIL 1000 MG CAPSULE 2 CAPSULES ORALLY BEFORE BEDTIME, NOTES: 02/22/181999 TAKING FERROUS SULFATE 325 (65 FE) MG TABLET 1 TABLET ORALLY THREE TIMES DAILY, NOTES: 02/22/181999 TAKING TIZANIDINE HCL 2 MG TABLET 1 TABLET NEEDED ORALLY FOR SPASMS AND PAIN BEFORE BEDTIME MAY REPEAT IN 4 HRS MDD2, NOTES: > 1 WEEK TAKING MOBIC 15 MG TABLET 1 TABLET ORALLY ONCE A DAY, NOTES: 02/22/181999 TAKING LISINOPRIL-HYDROCHLOROTHIAZIDE 20-12.5 MG TABLET 1 TABLET ORALLY ONCE A DAY, NOTES: 02/22/181999 TAKING PERCOCET 5-325 MG TABLET 1 TABLET NEEDED ORALLY ( ORTHO ) EVERY 6 HRS, NOTES: 02/17/18 TAKING FLECTOR 1.3 % PATCH 1 PATCH TO SKIN TRANSDERMAL TWICE A DAY, NOTES: HAS NOT GOTTEN, NEEDS PRIOR APPROVAL TAKING ATORVASTATIN CALCIUM 80 MG TABLET 1 TABLET ORALLY ONCE A DAY, NOTES: 02/22/181999 NOT-TAKING PRED FORTE 1 % SUSPENSION 1 DROPS INTO L EYE OPHTHALMIC EVERY 2 HOURS, NOTES: > 1 MONTH NOT-TAKING PERCOCET 5-325 MG TABLET 1 TABLET NEEDED ORALLY Q12H PRN MDD2 #45 TAB SHOULD LAST 30 DAYS, NOTES: DUPLICATE MEDICATION LIST REVIEWED AND RECONCILED WITH THE PATIENT PAST MEDICAL HISTORY HYPERTENSION HYPERLIPIDEMIA DEPRESSION/ANXIETY TBI - MAULED BY YAZMIN 11/13, [facility] NO OVERNIGHT STAY IMPAIRED FASTING GLUCOSE MORBID OBESITY VIT D DEF ANEMIA, FE DEF CHR B KNEE PAIN - NCOG KIERA, NONCOMPLIANT WITH CPAP RIGTH SHOULDER PAIN ALLERGIES N.K.D.A. SURGICAL HISTORY RIGHT KNEE ARTHROSCOPY LEFT EYE CORNEAL TRANSPLANT. 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 KNEE SURGERY-LEFT 11/2014 LEFT HAND SURGERY 06/2016 COLONOSCOPY- NEGATIVE 2016 RIGHT HAND SURGERY 2016 LEFT CATARACT REMOVAL WITH LENS IMPLANT 2014 FAMILY HISTORY FATHER: 70'S YRS, CVA, HEART DISEASE, DIAGNOSED WITH HYPERTENSION, STROKE MOTHER: ALIVE 83 YRS, UNKNOWN MEDICAL CONDITIONS, DIAGNOSED WITH HYPERTENSION SIBLINGS: ALIVE, UNKNOWN, DIAGNOSED WITH HYPERTENSION 1 BROTHER(S) , 1 SISTER(S) . DENIES KNOWN FIRST DEGREE RELATIVE WITH COLORECTAL CA. SOCIAL HISTORY GENERAL: TOBACCO USE ARE YOU A:LIGHT TOBACCO SMOKER ADDITIONAL FINDINGS: TOBACCO USERCHEWS TOBACCO USES RARELY LUNG CANCER SCREENING SMOKING STATUS:FORMER SMOKER BMI CARE GOAL FOLLOW-UP ABOVE NORMAL BMI FOLLOW-UPFEEDING REGIME, WEIGHT MONITORING ALCOHOL SCREENING DID YOU HAVE A DRINK CONTAINING ALCOHOL IN THE PAST YEAR?NO POINTS0 INTERPRETATIONNEGATIVE RECREATIONAL DRUG USE DRUG USE?NO CAFFEINE CAFFEINE USE?YES HOW OFTEN AND HOW MUCH? 1-2 CUPS DAILY SEXUAL HX HAD SEX IN THE LAST 12 MONTHS (VAGINAL, ORAL, OR ANAL)?: NO, HAVE YOU EVER HAD AN STD?: NO. PROTESTANT [id number] PRESYBETERIAN NO CAODAISM BELIEFS THAT WOULD IMPACT HEALTH CARE. 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 DIET: REGULAR. EXERCISE: NO REGULAR EXERCISE. PAIN CLINIC PFS, CLERGY, PUBLIC HEALTH REFERRALS PFS REFERRAL NEEDED?NO CLERGY REFERRAL NEEDED?NO PUBLIC HEALTH REFERRAL NEEDED?NO WAS THE PROVIDER NOTIFIED OF ANY PERTINENT INFO? N/A HAS THE PATIENT BEEN EDUCATED REGARDING HIS/HER PLAN OF CARE?YES HAS THE PATIENT BEEN EDUCATED REGARDING PAIN, THE RISK FOR PAIN, THE IMPORTANCE OF EFFECTIVE PAIN MANAGEMENT, AND THE PAIN ASSESSMENT PROCESS?YES HOUSING: LIVES WITH MOTHER. ADVANCE DIRECTIVE ADVANCE DIRECTIVE DISCUSSED WITH PATIENT:YES PT DOES NOT HAVE ADVANCED DIRECTIONS, HAS HCP INFORMATION AT HOME, DECLINES ASSISTANCE IN FILLING ONE OUT. 10/27/17 REVIEWED WITH PT. ADREVIEWED WITH PT 11/17/17 BVREVIEWED WITH PATIENT 12/16/17 1004 JS02/23/18 1422 REVIEWED WITH PT LAS. HOSPITALIZATION/MAJOR DIAGNOSTIC PROCEDURE SURGERY REVIEW OF SYSTEMS REVIEWED BY: PROVIDER: . CONSTITUTIONAL: ANY CHANGE IN YOUR MEDICAL CONDITION? NO . CHILLS NO . FEVER NO . INFECTION: DO YOU HAVE NEW INFECTIONS? NO . DO YOU HAVE HISTORY OF MRSA? NO . MUSCULOSKELETAL: ANY NEW PATTERNS OF PAIN OR NUMBNESS? NO . GASTROENTEROLOGY: ANY NEW CHANGE IN BOWEL CONTROL? NO . GENITOURINARY: ANY NEW CHANGE IN BLADDER CONTROL? NO . IS THERE A CHANCE YOU COULD BE ? NO . HEMATOLOGY/LYMPH: DO YOU TAKE ANY BLOOD THINNERS? (FOR EXAMPLE- COUMADIN, PLAVIX, AGGRENOX, PLATEL, PRADAXA, OR XARELTO) NO . WHEN WAS YOUR LAST DOSE? DATE: TIME: . NEUROLOGY: HAVE YOU FALLEN IN THE PAST 6 MONTHS? NO . ANY NEW EXTREMITY NUMBNESS OR WEAKNESS? NO . CARDIOLOGY: DO YOU HAVE A PACEMAKER OR DEFIBRILLATOR? NO . RESPIRATORY: HAVE YOU BEEN SICK IN THE PAST WEEK? NO . FEVER NO . FLU LIKE SYMPTOMS? NO . COUGH NO . INTEGUMENTARY: DO YOU HAVE ANY RASHES OR OPEN SORES? NO . ALLERGIC/IMMUNO: ARE YOU ALLERGIC TO SHELLFISH OR IV DYE? NO . ANY NEW ALLERGIES? NO . PSYCHIATRIC: DO YOU HAVE THOUGHTS OF HURTING YOURSELF OR SOMEONE ELSE? NO . ARE YOU ABUSED, NEGLECTED, OR IN AN UNSAFE ENVIRONMENT? NO . ENDOCRINOLOGY: ARE YOU DIABETIC? NO . OTHER: DO YOU NEED ANY PRESCRIPTIONS? NO . IF YES, PLEASE LIST: ____ . ANY NEW PROBLEMS WITH YOUR MEDICATIONS? NO . WHEN DID YOU LAST EAT? ____OMELETTE AND TOAST ONE HOUR AGO . WHEN DID YOU LAST DRINK? ____12/19/18 1215 . WHAT DID YOU LAST DRINK? ____COFFEE . NAME OF PERSON DRIVING YOU HOME? ____ . DO YOU HAVE ANY OTHER QUESTIONS OR CONCERNS NO . VITAL SIGNS WT 288.2 LBS, HT 5'10", BMI 41.35 INDEX, BP 137/81 MM HG, HR 95 /MIN, RR 18 /MIN, TEMP 96.4 F, OXYGEN SAT % 97%, SAFE IN ENV? (Y/N) YES, NA INITIALS SC 13:36, REVIEWED BY: DENISSE. ASSESSMENTS MYALGIA, OTHER SITE - M79.18 (PRIMARY) PROCEDURES PN TRIGGER POINT INJECTION WITH STEROIDS PRE PROCEDURE DIAGNOSIS 1. MYALGIA 2. PAIN AT RIGHT SHOULDER AREA POST PROCEDURE DIAGNOSIS 1. MYALGIA 2. PAIN AT RIGHT SHOULDER AREA PROCEDURE TRIGGER POINT INJECTION AT RIGHT SHOULDER AREA SURGEON DR. 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 I EVALUATE THE PATIENT AND REVIEWED THE CHART. THERE IS EVIDENCE OF BANDS OF TISSUE WITH RESTRICTION OF MOVEMENT AND PRESENCE OF TRIGGER POINT AT THE AFFECTED AREA. I WENT OVER THE RISKS, ALTERNATIVES, AND BENEFITS ASSOCIATED WITH THIS PROCEDURE. THE PATIENT WOULD LIKE TO PROCEED AND GIVE CONSENT TO PERFORMED THE PROCEDURE. THE PATIENT DENIES UNEXPLAINABLE WEIGHT LOSS, FEVER, CHILLS, OR NEW CHANGES IN URINARY OR BOWEL CONTROL DESCRIPTION OF PROCEDURE THE PATIENT WAS BROUGHT TO THE PROCEDURE ROOM AND PLACED IN THE SITTING POSITION. THE AREA WAS CLEANED WITH ALCOHOL. THE PROCEDURE WAS DONE USING ASEPTIC STERILE TECHNIQUE. I CHECKED LATERALITY AND THE LEVEL WHERE THE PROCEDURE WAS GOING TO BE PERFORMED WITH THE PATIENT AND THE SUPPORTING STAFF AT THE MOMENT OF THE TIME OUT IN THE PROCEDURE ROOM. USING A 25-GAUGE NEEDLE, TRIGGER POINTS WERE INJECTED AT THE RIGHT SHOULDER AREA WITH A TOTAL OF 40 ML OF BUPIVACAINE 0.25% AND KENALOG 40 MG. THERE WAS NO EVIDENCE OF BLOOD, PARESTHESIA OR CEREBROSPINAL FLUID DURING THE PROCEDURE. THE PATIENT WAS SENT TO THE RECOVERY ROOM. THE PATIENT WAS MOVING THE EXTREMITIES AND DOING WELL. THERE WAS NO COMPLICATION DURING THE PROCEDURE POST PROCEDURE NOTE THE PATIENT WILL BE SEEN IN A FOLLOW UP IN THE NEXT FEW WEEKS. INSTRUCTIONS WERE GIVEN, QUESTIONS WERE ANSWERED, AND THE PATIENT EXPRESSED UNDERSTANDING AND AGREES WITH THE PLAN. I, ERIK QUEEN, DOCUMENTED THE ABOVE INFORMATION ACTING A SCRIBE FOR DR. ROSS. I HAVE REVIEWED THE ABOVE DOCUMENT, WRITTEN BY ERIK GAYLE AND I VERIFY THAT IT IS ACCURATE. PN WORKMANS' COMP OPINION IN YOUR OPINION, WAS THE INCIDENT THAT THE PATIENT DESCRIBED THE COMPETENT MEDICAL CAUSE OF THIS INJURY/ILLNESS? YES ARE THE PATIENT'S COMPLAINTS CONSISTENT WITH HIS/HER HISTORY OF THE INJURY/ILLNESS? YES IS THE PATIENT'S HISTORY OF THE INJURY/ILLNESS CONSISTENT WITH YOUR OBJECTIVE FINDING? YES WHAT IS THE PERCENTAGE OF TEMPORARY IMPAIRMENT? MODERATE TO MARKED = 66.7% IS THE PATIENT WORKING? NO DOCTOR ON SITE: LOLA PRO MD PROCEDURE CODES 20121 INJ TRIGGER POINT 1/2 MUSCL DISPOSITION & COMMUNICATION FOLLOW UP 3 WEEKS ELECTRONICALLY SIGNED BY LOLA ROSS MD, MD ON 03/13/2018 AT 02:23 PM EST DISCLAIMER : THIS IS A VISIT SUMMARY EXTRACTED FROM THE [employer] CHART. IT IS NOT A COPY OF THE [employer] PROGRESS NOTE. CHRISTA
== END ==
LOC: M PAIN 13:15
PROVIDERS: ATTEND Anesthesiology
DX: M79.18 Myalgia, other site (principal); I10 Essential (primary) hypertension; E78.5 Hyperlipidemia, unspecified; F32.9 Major depressive disorder, single episode, unspecified; R73.01 Impaired fasting glucose; E66.01 Morbid (severe) obesity due to excess calories; E55.9 Vitamin D deficiency, unspecified; D50.9 Iron deficiency anemia, unspecified; G47.33 Obstructive sleep apnea (adult) (pediatric); M25.511 Pain in right shoulder; Z91.19 Patient's noncompliance with other medical treatment and regimen; M25.561 Pain in right knee; M25.562 Pain in left knee; Z98.42 Cataract extraction status, left eye; F17.220 Nicotine dependence, chewing tobacco, uncomplicated; Z79.891 Long term (current) use of opiate analgesic; Z79.899 Other long term (current) drug therapy
CPT/HCPCS: 20552; J3301

== ENCOUNTER → 2018-03-15 | Outpatient (REF) | payer OTHER ==
[~2018-03-15] MED LIST changes: -BUPIVACAINE HCL 0.25% 10 ML VIAL As Ordered ONE; -BUPIVACAINE HCL 0.25% 30 ML VIAL As Ordered ONE; -TRIAMCINOLONE ACETONIDE SUSP 40 MG/ML VIAL (J3301) As Ordered ONE; -diazePAM 5 MG TAB As Ordered ONE; -oxyCODONE 5MG TAB As Ordered ONE
[2018-03-15 21:13] LABS: ALBUMIN 3.7 GM/DL (3.2-5.2); ALT/SGPT 19 U/L (12-78); BILIRUBIN,TOTAL 0.3 MG/DL (0.2-1.0); BLOOD UREA NITROGEN 13 MG/DL (7-18); CALCIUM LEVEL 8.8 MG/DL (8.5-10.1); CARBON DIOXIDE LEVEL 26 MEQ/L (21-32); CHLORIDE LEVEL 110 MEQ/L (98-107); CHOLESTEROL LEVEL 181 MG/DL (<200); CHOLESTEROL RISK RATIO 4.022 (<5); CREATININE FOR GFR 0.88 MG/DL (0.70-1.30); FERRITIN 896 NG/ML (26-388); FOLATE > 24.0 NG/ML; GLOMERULAR FILTRATION RATE > 60.0 (>56); GLUCOSE, FASTING 92 MG/DL (70-100); HDL CHOLESTEROL 45 MG/DL (>40); IRON (FE) 55 UG/DL (65-175); LDL CHOLESTEROL 97 MG/DL (<100); NON-HDL-C 136 MG/DL; PERCENT SATURATION 19.4 % (19.7-50.0); POTASSIUM SERUM 3.5 MEQ/L (3.5-5.1); SODIUM LEVEL 146 MEQ/L (136-145); TOTAL IRON BINDING CAPACITY 284 UG/DL (250-450); TOTAL PROTEIN 7.4 GM/DL (6.4-8.2); TRIGLYCERIDES LEVEL 195 MG/DL (<150); VITAMIN B12 LEVEL 619 PG/ML
[2018-03-15 21:19] LABS: BASO % 0.3 % (0.0-1.0); EOS # 0.2 10^3/uL (0.0-0.50); EOS % 2.3 % (0.0-3.0); HEMATOCRIT 41.7 % (42.0-52.0); HEMOGLOBIN 13.8 g/dl (13.5-17.5); LYMPH # 2.1 10^3/uL (1.5-4.5); LYMPH % 22.6 % (24.0-44.0); MEAN CORPUSCULAR HEMOGLOBIN 27.5 pg (27.0-33.0); MEAN CORPUSCULAR HGB CONC 33.1 g/dl (32.0-36.5); MEAN CORPUSCULAR VOLUME 83.1 fl (80.0-96.0); MONO # 0.4 10^3/uL (0.0-0.8); MONO % 4.8 % (0.0-5.0); NEUTROPHILS # 6.4 10^3/uL (1.8-7.7); NEUTROPHILS % 69.7 % (36.0-66.0); PLATELET COUNT, AUTOMATED 336 10^3/uL (150-450); RED BLOOD COUNT 5.02 10^6/uL (4.30-6.10); WHITE BLOOD COUNT 9.2 10^3/uL (4.0-10.0)
[2018-03-15 21:35] LABS: HEMOGLOBIN A1c 5.6 %
[2018-03-16 12:22] LABS: TOTAL 25(OH) VITAMIN D 36.2 NG/ML (30.0-100.0)
== END ==
LOC: M SFHCADAM 13:41
PROVIDERS: ATTEND Physician Assistant Medical
DX: E55.9 Vitamin D deficiency, unspecified (principal); R73.01 Impaired fasting glucose; M54.5 Low back pain

== ENCOUNTER → 2018-03-30 | Outpatient (CLI) | payer OTHER ==
[~2018-03-30] MED LIST changes: +FERR150C PO; +FISH100042 PO; +MELO15TA28 PO; +TIZA2TA PO
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
== END ==
LOC: M PAIN 14:30
PROVIDERS: ATTEND Nurse Practitioner Family
DX: M53.3 Sacrococcygeal disorders, not elsewhere classified (principal); M54.40 Lumbago with sciatica, unspecified side; G89.21 Chronic pain due to trauma; I10 Essential (primary) hypertension; E78.49 Other hyperlipidemia; F32.9 Major depressive disorder, single episode, unspecified; F41.9 Anxiety disorder, unspecified; D50.9 Iron deficiency anemia, unspecified; G47.30 Sleep apnea, unspecified; E55.9 Vitamin D deficiency, unspecified; E66.01 Morbid (severe) obesity due to excess calories; Z68.41 Body mass index [BMI] 40.0-44.9, adult; Z72.0 Tobacco use; Z87.820 Personal history of traumatic brain injury; Z88.5 Allergy status to narcotic agent; Z79.899 Other long term (current) drug therapy

== ENCOUNTER 2018-05-10 06:29 | Day surgery (SDC) | payer OTHER ==
[2018-05-10] VITALS (7 sets, daily range): BP systolic 121–144; BP diastolic 71–77
[~2018-05-10] VITALS: Ht 177.8 cm; Wt 129.3 kg
[~2018-05-10 06:29] MED LIST changes: +ACETAMINOPHEN 325 MG TAB PO PRN; +BETAMETHASONE SOLUSPAN 6MG/ML INJ 5ML (J0702) As Ordered ONE; +MAGN400C PO; +NIFE1TAB62 PO; +POVIDONE-IODINE 5% OPHTH PREP SOL 30ML As Ordered ONE; +REFR0.5D8 OU; +SUMA100T2 PO; +THERSOL3 OU; +TOBRADEX OPHTH OINT 3.5 GM As Ordered ONE; +TOBRAMYCIN INJ 80 MG/2 ML VIAL (J3260) As Ordered ONE
[2018-05-10] MEDS ORDERED: AcetaZOLAMIDE 500MG INJECTION (J1120) IV ONE (07:00)
[2018-05-10] MEDS ORDERED: LIDOCAINE 3.5 % 1ML OPHTH TOPICAL GEL OU ONE (07:00)
[2018-05-10] MEDS ORDERED: OFLOXACIN 0.3 % (OCUFLOX) OPTH SOL 5ML OS ONE (07:00)
[2018-05-10] MEDS ORDERED: MANNITOL 20% BAG 250 ML IV ONE (07:00)
[2018-05-10] MEDS ORDERED: TOBRAMYCIN INJ 80 MG/2 ML VIAL (J3260) As Ordered ONE (08:24)
[2018-05-10] MEDS ORDERED: HEALON DUET PRO(HEALON 10MG/ML 0.55ML & HEALON ENDOCOAT 30MG/ML 0.85ML) As Ordered ONE (08:30)
[2018-05-10] MEDS ORDERED: methylPREDNISolone 500 MG VIAL (J2930) As Ordered ONE (08:51)
[2018-05-10] MEDS ORDERED: ePHEDrine SULFATE 25 MG/5 ML(5MG/ML) SYRINGE As Ordered ONE (09:01)
[2018-05-10] MEDS ORDERED: ONDANSETRON 4MG/2ML VIAL (J2405) As Ordered ONE (09:02)
[2018-05-10] MEDS ORDERED: fentaNYL 100 MCG/2 ML INJECTION (J3010) As Ordered ONE (09:02)
[2018-05-10] MEDS ORDERED: dexameTHASONE 4 MG/ML 1ML VIAL (J1100) As Ordered ONE (09:02)
[2018-05-10] MEDS ORDERED: PROPOFOL 200 MG/20 ML VIAL As Ordered ONE ×2 (09:02→09:11)
[2018-05-10] MEDS ORDERED: LIDOCAINE 2% INJ 100 MG/5 ML SDV (FOR ANES.) As Ordered ONE (09:02)
[2018-05-10] MEDS ORDERED: HYDROCORTISONE 100 MG/2 ML VIAL (J1720) As Ordered ONE (09:02)
[2018-05-10] MEDS ORDERED: MIDAZOLAM INJ 2 MG/2 ML VIAL (J2250) As Ordered ONE (09:02)
[2018-05-10] MEDS ORDERED: ACETYLCHOLINE OPHTH SOLN 1% 2ML (MIOCHOL-E) As Ordered ONE (10:10)
[2018-05-10] MEDS ORDERED: fentaNYL 100 MCG/2 ML INJECTION (J3010) IV PRN ×2 (10:45→12:00)
[2018-05-10] MEDS ORDERED: KETOROLAC 0.5% OPHTH SOLN OS ONE (10:45)
[2018-05-10] MEDS ORDERED: TRIMETHOBENZAMIDE 300 MG CAP PO PRN (10:45)
[2018-05-10] MEDS ORDERED: LR 1,000 ML IV SCH ×2 (10:45→12:00)
[2018-05-10] MEDS ORDERED: KETOROLAC 30 MG/ML VIAL (J1885) As Ordered ONE (11:53)
[2018-05-10] MEDS ORDERED: KETOROLAC 30 MG/ML VIAL (J1885) IV PRN ×2 (12:00→12:20)
[2018-05-10] MEDS ORDERED: ACETAMINOPHEN 325 MG TAB PO PRN (12:15)
[2018-05-10] MEDS ORDERED: ACETAMINOPHEN TAB 650MG DOSE (2X325MG) PO PRN (17:45)
[2018-05-10] MEDS ORDERED: SUMAtriptan SUCCINATE 25 MG TAB PO PRN (17:45)
--- NOTE | 2018-05-10 19:34 | RO ---
DATE OF PROCEDURE: 05/10/2018 PREPROCEDURE DIAGNOSIS: Corneal graft failure, right eye. POSTPROCEDURE DIAGNOSIS: Corneal graft failure, right eye. PROCEDURE: Penetrating keratoplasty. SURGEON: David Mitchell MD VETERINARY SURGEON: ANESTHESIA: General. COMPLICATIONS: None. DESCRIPTION OF PROCEDURE: The patient was brought to the operating room, laid in supine position. The patient was intubated by the anesthesiologist following which the eye was prepped and draped in a sterile fashion for ophthalmic surgery. The corneal donor tissue was then examined, verified, and using a 9 mm punch, was prepared for grafting and put on the back table under EndoCoat. Attention was then diverted to the patient's cornea. Eye was marked using 12 corneal marker, following which the previously placed sutures were removed using the Super Sharp blade and brinda forceps and Vannas scissors. After the previous sutures were removed, then with the help of a katie blade and 0.2 forceps and scissors to the right and scissors to the left, the host cornea, which was a previously failed graft, was then removed. There was extensive fibrosis noticed, which was then lysed with the help of Vannas scissors and katie knife, and the scissors to the right and to the left. Following which, EndoCoat was placed on the iris bed and the graft tissue was secured in place using 12 interrupted #10-0 nylon sutures. All the knots were buried, and this was followed by a #10-0 nylon suture, which was run in an anti-torque fashion in between the interrupted #10-0 nylon sutures. Laxity was removed and the knots were buried. Throughout the procedure, anterior chamber was maintained using balanced salt solution. At the end of the case, sub-Tenon injection of and Tobramycin was given. Lid speculum was removed, and the patient was extubated and returned to the recovery room in stable condition.
[2018-05-10] MEDS ORDERED: TOPIRAMATE (TopAMAX) 100 MG TAB PO SCH (21:00)
[2018-05-11 02:00] VITALS: BP 137/77
[2018-05-11 06:00] VITALS: BP 137/87
[2018-05-11] MEDS ORDERED: KETO5OPD OS (08:38)
[2018-05-11] MEDS ORDERED: OFLO3OPSO OS (08:38)
[2018-05-11] MEDS ORDERED: PRED1SUS2 OS (08:38)
[2018-05-11] MEDS ORDERED: APAP325T4 PO (08:38)
== END 2018-05-11 10:15 | disposition home or self-care (01) ==
LOC: M SDC 06:29 → M MS5PR 14:35 → M SDC 05-11 10:15
PROVIDERS: ATTEND Ophthalmology
DX: T86.840 Corneal transplant rejection (principal); I10 Essential (primary) hypertension; E78.00 Pure hypercholesterolemia, unspecified; F41.9 Anxiety disorder, unspecified; F32.9 Major depressive disorder, single episode, unspecified; R73.01 Impaired fasting glucose; E55.9 Vitamin D deficiency, unspecified; D50.9 Iron deficiency anemia, unspecified; M25.551 Pain in right hip; M25.552 Pain in left hip; G89.29 Other chronic pain; G47.33 Obstructive sleep apnea (adult) (pediatric); R60.0 Localized edema; R06.02 Shortness of breath; M54.2 Cervicalgia; M12.9 Arthropathy, unspecified; G43.909 Migraine, unspecified, not intractable, without status migrainosus; R06.83 Snoring; R29.898 Other symptoms and signs involving the musculoskeletal system; M25.511 Pain in right shoulder; E66.9 Obesity, unspecified; Z68.41 Body mass index [BMI] 40.0-44.9, adult; Z79.899 Other long term (current) drug therapy; Z87.820 Personal history of traumatic brain injury; Z72.0 Tobacco use
CPT/HCPCS: 65730; 87070; 87075; 87102; 87205; 88300; 96374; J0702; J1100; J1120; J1720; J1885; J2250; J2405; J3010; J3260

== ENCOUNTER → 2018-05-31 | Outpatient (CLI) | payer OTHER ==
[~2018-05-31] MED LIST changes: -ACETAMINOPHEN 325 MG TAB PO PRN; +APAP325T4 PO; -BETAMETHASONE SOLUSPAN 6MG/ML INJ 5ML (J0702) As Ordered ONE; +KETO0.5S2 OS; +OFLO3OPSO OS; -POVIDONE-IODINE 5% OPHTH PREP SOL 30ML As Ordered ONE; -TOBRADEX OPHTH OINT 3.5 GM As Ordered ONE; -TOBRAMYCIN INJ 80 MG/2 ML VIAL (J3260) As Ordered ONE
--- NOTE | 2018-06-15 02:08 | ECWPNPC ---
PATIENT NAME: DULCE WYNNE : 1965 GENDER: MALE VISIT DATE: 05/31/2018 DISCHARGE DATE: 05/31/18 1212 VISIT LOCKED DATE TIME: PHYSICIAN: KASSIDY JIM RESOURCE: KASSIDY JIM DISCLAIMER : THIS IS A VISIT SUMMARY EXTRACTED FROM THE [facility] CHART. IT IS NOT A COPY OF THE [employer] PROGRESS NOTE. CHRISTA
== END ==
LOC: M PAIN 11:00
PROVIDERS: ATTEND Nurse Practitioner Family
DX: M60.821 Other myositis, right upper arm (principal); G89.29 Other chronic pain; M25.511 Pain in right shoulder; I10 Essential (primary) hypertension; E78.5 Hyperlipidemia, unspecified; Z86.59 Personal history of other mental and behavioral disorders; Z87.820 Personal history of traumatic brain injury; R73.01 Impaired fasting glucose; E55.9 Vitamin D deficiency, unspecified; G47.33 Obstructive sleep apnea (adult) (pediatric); F17.220 Nicotine dependence, chewing tobacco, uncomplicated; E66.01 Morbid (severe) obesity due to excess calories; Z68.41 Body mass index [BMI] 40.0-44.9, adult; Z79.899 Other long term (current) drug therapy

== ENCOUNTER → 2018-07-13 | Outpatient (CLI) | payer OTHER ==
[~2018-07-13] MED LIST changes: +BUPIVACAINE HCL 0.25% 10 ML VIAL As Ordered ONE; +BUPIVACAINE HCL 0.25% 30 ML VIAL As Ordered ONE; +TRIAMCINOLONE ACETONIDE SUSP 40 MG/ML VIAL (J3301) As Ordered ONE; +diazePAM 5 MG TAB As Ordered ONE; +oxyCODONE 5MG TAB As Ordered ONE
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
== END ==
LOC: M PAIN 13:45
PROVIDERS: ATTEND Anesthesiology
DX: M79.18 Myalgia, other site (principal); M25.511 Pain in right shoulder; I10 Essential (primary) hypertension; E78.5 Hyperlipidemia, unspecified; R73.01 Impaired fasting glucose; E55.9 Vitamin D deficiency, unspecified; D50.9 Iron deficiency anemia, unspecified; G47.33 Obstructive sleep apnea (adult) (pediatric); E66.01 Morbid (severe) obesity due to excess calories; Z68.41 Body mass index [BMI] 40.0-44.9, adult; Z79.899 Other long term (current) drug therapy; Z86.59 Personal history of other mental and behavioral disorders; Z87.820 Personal history of traumatic brain injury; Z87.891 Personal history of nicotine dependence

== ENCOUNTER 2018-10-13 14:40 | Emergency (ER) | payer OTHER ==
[~2018-10-13] VITALS: Ht 177.8 cm; Wt 134.1 kg
[~2018-10-13 14:40] MED LIST changes: -BUPIVACAINE HCL 0.25% 10 ML VIAL As Ordered ONE; -BUPIVACAINE HCL 0.25% 30 ML VIAL As Ordered ONE; -LISI20TA PO; +LISI20TA18 PO; -TRIAMCINOLONE ACETONIDE SUSP 40 MG/ML VIAL (J3301) As Ordered ONE; -diazePAM 5 MG TAB As Ordered ONE; -oxyCODONE 5MG TAB As Ordered ONE
[2018-10-13] MEDS ORDERED: ZONI50CA3 PO (15:36)
[2018-10-13] MEDS ORDERED: KETOROLAC TROMETHAMINE 10 MG TAB PO ONE (18:30)
[2018-10-13 18:57] VITALS: BP 154/93
--- NOTE | 2018-10-13 20:11 | REP ---
RIGHT SHOULDER, THREE VIEWS: Three views of the right shoulder are performed. No acute fracture is seen. There is chronic AC joint separation with elevation of the distal end of the clavicle. There is calcification of the coracoclavicular ligament. There is spurring of the distal clavicle. Electronically Signed by Kapil Dong MD 10/14/2018 10:02 A
--- NOTE | 2018-10-13 20:13 | REP ---
RIGHT KNEE, FIVE VIEWS: Five views of the right knee are performed. There is no acute fracture or dislocation. There is mild spurring of the medial tibial plateau and femoral condyle. IMPRESSION: No acute fracture or dislocation. Electronically Signed by Kapil Dong MD 10/14/2018 10:02 A
--- NOTE | 2018-10-13 20:15 | REP ---
PELVIS AND RIGHT HIP: AP view of the pelvis and AP and frogleg views of the right hip are performed. There is no acute fracture or dislocation. Phleboliths are seen in the pelvis. There may be some minimal narrowing of the hip joints. IMPRESSION: No acute fracture or dislocation. Electronically Signed by Kapil Dong MD 10/14/2018 10:02 A
== END 2018-10-13 20:35 | disposition home or self-care (01) ==
LOC: M ED 14:40
DX: M25.511 Pain in right shoulder (principal); M25.551 Pain in right hip; M25.561 Pain in right knee; R10.30 Lower abdominal pain, unspecified; W19.XXXA Unspecified fall, initial encounter; Y92.511 Restaurant or cafe as the place of occurrence of the external cause; Y93.01 Activity, walking, marching and hiking; Y99.9 Unspecified external cause status; I10 Essential (primary) hypertension; G47.33 Obstructive sleep apnea (adult) (pediatric); F41.9 Anxiety disorder, unspecified; F32.9 Major depressive disorder, single episode, unspecified; R51 Headache; Z79.899 Other long term (current) drug therapy; Z79.2 Long term (current) use of antibiotics

== ENCOUNTER → 2018-11-11 | Outpatient (CLI) | payer OTHER ==
[~2018-11-11] MED LIST changes: -LISI20TA18 PO; +LISI20TA19 PO; +ZONI50CA3 PO
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
== END ==
LOC: M PAIN 09:00
PROVIDERS: ATTEND Nurse Practitioner Family
DX: M25.511 Pain in right shoulder (principal); M54.5 Low back pain; M25.551 Pain in right hip; G89.29 Other chronic pain; I10 Essential (primary) hypertension; E78.5 Hyperlipidemia, unspecified; Z86.59 Personal history of other mental and behavioral disorders; R73.01 Impaired fasting glucose; E55.9 Vitamin D deficiency, unspecified; G47.33 Obstructive sleep apnea (adult) (pediatric); F17.220 Nicotine dependence, chewing tobacco, uncomplicated; E66.01 Morbid (severe) obesity due to excess calories; Z68.42 Body mass index [BMI] 45.0-49.9, adult; Z79.899 Other long term (current) drug therapy

== ENCOUNTER → 2018-11-16 | Outpatient (REF) | payer OTHER ==
[2018-11-16 12:10] LABS: BLOOD UREA NITROGEN 17 MG/DL (7-18); CALCIUM LEVEL 9.9 MG/DL (8.5-10.1); CARBON DIOXIDE LEVEL 25 MEQ/L (21-32); CHLORIDE LEVEL 107 MEQ/L (98-107); CREATININE FOR GFR 0.91 MG/DL (0.70-1.30); GLOMERULAR FILTRATION RATE > 60.0 (>56); GLUCOSE, FASTING 112 MG/DL (70-100); POTASSIUM SERUM 3.8 MEQ/L (3.5-5.1); SODIUM LEVEL 143 MEQ/L (136-145)
== END ==
LOC: M SFHCPLAZ 10:09
PROVIDERS: ATTEND Physician Assistant
DX: Z01.818 Encounter for other preprocedural examination (principal)

== ENCOUNTER → 2018-11-18 | Outpatient (CLI) | payer OTHER ==
--- NOTE | 2018-11-18 14:33 | REP ---
Right hand series: Four views. History: Hand pain. Findings: Four views of the right hand show overall normal mineralization. Joint spaces are preserved. No erosive changes seen. Impression: Negative radiographs of the right hand. Electronically Signed by Akhil Mckee MD 11/18/2018 02:24 P
--- NOTE | 2018-11-18 15:04 | REP ---
CERVICAL SPINE SERIES: 10 views. HISTORY: Neck pain. FINDINGS: Lateral views done in flexion/extension and neutral position show normal alignment of the upper cervical spine segments. The lower cervical spine is not visualized on lateral radiographs. Swimmers lateral view is obtained and this shows normal alignment through the lower segments of the cervical spine. No fracture or collapse is seen. No subluxation is seen. Oblique images demonstrate intact neural foramina bilaterally at each cervical level and normally aligned facets. AP view shows a dextroconvex curvature in the cervical spine. Open-mouth odontoid view is unremarkable. The patient is edentulous. IMPRESSION: Mild dextroconvex curvature on the AP view. Otherwise no abnormality noted. Electronically Signed by Akhil Mckee MD 11/18/2018 03:07 P
== END ==
LOC: M ADAMS 13:39
PROVIDERS: ATTEND Physician Assistant Medical
DX: M54.5 Low back pain (principal); M79.641 Pain in right hand

== ENCOUNTER → 2018-12-15 | Outpatient (CLI) | payer OTHER ==
[~2018-12-15] MED LIST changes: +VITA1CAP25 PO
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
== END ==
LOC: M PAIN 10:00
PROVIDERS: ATTEND Nurse Practitioner Family
DX: M25.511 Pain in right shoulder (principal); G89.29 Other chronic pain; I10 Essential (primary) hypertension; E78.5 Hyperlipidemia, unspecified; Z86.59 Personal history of other mental and behavioral disorders; Z87.820 Personal history of traumatic brain injury; R73.01 Impaired fasting glucose; E55.9 Vitamin D deficiency, unspecified; G47.33 Obstructive sleep apnea (adult) (pediatric); F17.220 Nicotine dependence, chewing tobacco, uncomplicated; E66.01 Morbid (severe) obesity due to excess calories; Z68.42 Body mass index [BMI] 45.0-49.9, adult; Z79.899 Other long term (current) drug therapy

== ENCOUNTER → 2019-01-24 | Outpatient (CLI) | payer OTHER ==
--- NOTE | 2019-01-27 23:41 | ECWPNPC ---
PATIENT NAME: DULCE WYNNE : 1965 GENDER: MALE VISIT DATE: 01/24/2019 DISCHARGE DATE: 01/24/19 0000 VISIT LOCKED DATE TIME: PHYSICIAN: LOLA ROSS MD RESOURCE: LOLA ROSS MD REASON FOR APPOINTMENT 1. W/C PRE-DEPOSITION HISTORY OF PRESENT ILLNESS HISTORY OF PRESENT ILLNESS: PAIN THE PATIENT DESCRIBES THE PAIN... 53 YEAR OLD MALE PATIENT WITH A HISTORY OF CHRONIC LOW BACK, RIGHT SHOULDER, AND RIGHT HIP PAIN. THE PATIENT DESCRIBES THE PAIN ACHING, TENDER, SHARP, STABBING, AND DAILY WITH A PAIN SCORE OF 7-10/10 DEPENDING ON PHYSICAL ACTIVITY AND MEDICATION USE. 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 THE PATIENT STATES HE LOST CONSCIOUSNESS FOR AN HOUR BEFORE BEING FOUND BY A RELIEF MILKER. THE PATIENT SAYS 911 WAS CALLED, AND HE WAS TRANSPORTED TO [facility] WHERE X-RAYS AND TESTING WERE PERFORMED THAT DISCOVERED HE HAS A STAGE 3 BRAIN INJURY. THE PATIENT SAYS THE CLOSEST NEUROLOGIST WAS OVER 20 MINUTES AWAY SO HE WAS AIRLIFTED TO [facility] WHERE MORE TESTING INCLUDING X-RAYS AND CT SCAN WERE DONE, AND HE WAS PARKED AT THE NURSE STATION DUE TO CONTINUING TO LOSE CONSCIOUSNESS MULTIPLE TIMES. THE PATIENT STATES HE HAS HAD SHOULDER, LEG, AND HIP X-RAYS DONE THAT SHOWS TORN ACL AND MENISCUS, AND HAS HAD TWO RIGHT KNEE SURGERIES WITH THE FIRST ONE DONE ON 03/20/2008 AND THE SECOND PERFORMED ON 12/07/[address] LACY. THE PATIENT SAYS ON 08/29/2013 HE RECEIVED AN ACL BRACE DUE TO BREAKING HIS RIGHT LEG TWICE AND ON 09/22/2014 RECEIVED AN OFF GREENHOUSE SUPERINTENDENT BRACE FOR HIS LEFT LEG DUE TO SMASHING HIS LEFT KNEE. THE PATIENT RECALLS IN 2007 HIS SHOULDER , BUT HE HAS NOT HAD SHOULDER OR ALSO LOW BACK SURGERY. THE PATIENT STATES DR. KATHERINE SHI IN [facility] SAYS HIS TBI AND MEMORY LOSS IS A RESULT OF THE HEAD INJURY THAT OCCURRED. THE PATIENT STATES HE IS CURRENTLY USING TORADOL 10 MG NEEDED FOR THE CONTINUOUS SWELLING OF HIS KNEE, ONE 15 MG MOBIC DAILY, AND PERCOCET 5-325 MG NEEDED UP TO 2-3 TABLETS DAILY FOR PAIN RELIEF. THE PATIENT SAYS HE WAS USING TRAMADOL IN THE PAST THAT WAS NOT HELPING WITH MUCH PAIN RELIEF, AND SINCE HIS SHOULDER PAIN HAS BEEN INCREASING, THE PERCOCET IS THE ONLY MEDICATION THAT IS HELPING WITH HIS PAIN. THE PATIENT MENTIONS IN OCTOBER OF THIS YEAR HE SUFFERED A FALL DURING A DINNER OUTING WITH HIS FAMILY DUE TO HIS LEGS AND RIGHT KNEE GIVING OUT THAT RESULTED IN HIM REACHING FOR A CHAIR FOR STABILITY, BUT INSTEAD LANDED ON HIS BACK, MAINLY ON HIS RIGHT SIDE THAT CAUSED MORE INJURY TO HIS RIGHT HIP AND SHOULDER. THE PATIENT SAYS HIS PAIN IS AFFECTING HIS ABILITY TO PERFORM HIS DAILY ACTIVITIES SUCH ONLY BEING ABLE TO WALK FOR SHORT DISTANCES AT A TIME BEFORE HAVING TO REST, NEEDING HELP TO CLEAN HIS HOUSE, UNABLE TO SLEEP OR REST DUE TO HIS SHOULDER PAIN WAKING HIM UP, SHOWERING, AND DRESSING HIMSELF. THE PATIENT STATES HE IS UNABLE TO WORK DUE TO HIS PAIN AND INJURIES MAKING IT DIFFICULT FOR HIM TO BE ABLE TO STAND OR SIT CONTINUOUSLY AND HE OFTEN HAS DIFFICULTY CONCENTRATING, CONFUSION, AND HEADACHES THAT CAN LAST FOR HOURS. THE PATIENT SAYS HIS LEFT OFF GREENHOUSE SUPERINTENDENT BRACE BROKE AND THE LOSS OF IT IS AFFECTING HIM A LOT AND HE NOW DEPENDS ON A CRUTCH TO AMBULATE. THE PATIENT HAS RECEIVED RIGHT SHOULDER TRIGGER POINT INJECTIONS IN THE PAST THAT PROVIDED HIM OVER 50 PERCENT IMPROVEMENT AND PAIN RELIEF FOR UP TO 4-5 MONTHS, AND HIS LAST RIGHT SHOULDER TRIGGER POINT INJECTION WAS DONE ON 07/13/2018, WHICH HE SAYS HIS PAIN HAS RETURNED AND HE WOULD LIKE ANOTHER ONE. PATIENT DENIES UNEXPLAINABLE WEIGHT LOSS, FEVER, CHILLS, NEW CHANGES ON HIS URINARY OR BOWEL CONTROL. FALL RISK SCREENING: SCREENING :NO FALLS REPORTED IN THE LAST YEAR CURRENT MEDICATIONS TAKING ATORVASTATIN CALCIUM 80 MG TABLET 1 TABLET ORALLY ONCE A DAY TAKING FISH OIL 1000 MG CAPSULE 2 CAPSULES ORALLY BEFORE BEDTIME TAKING PAXIL 40 MG TABLET 1 TABLET IN THE MORNING ORALLY ONCE A DAY TAKING ZONISAMIDE 50 MG CAPSULE 1 CAPSULE ORALLY TWICE A DAY TAKING KETOROLAC TROMETHAMINE 10 MG TABLET 1 TABLET WITH FOOD OR MILK NEEDED ORALLY EVERY 6 HRS TAKING SUMATRIPTAN SUCCINATE 100 MG TABLET 1 TABLET NEEDED ORALLY NEEDED TAKING VITAMIN D3 60521 UNITS CAPSULE 1 CAPSULE ORALLY ONCE A WEEK TAKING MAGNESIUM 400 MG TABLET 1 TAB ORALLY DAILY TAKING VITAMIN B12 1000 MCG TABLET EXTENDED RELEASE 1 TABLET ORALLY ONCE A DAY TAKING PRED FORTE 1 % SUSPENSION 1 DROPS INTO L EYE OPHTHALMIC THREE TIMES DAILY TAKING REFRESH EYE ITCH RELIEF TAKING REFRESH LIQUIGEL 1 % SOLUTION 1 DROP INTO AFFECTED EYE NEEDED OPHTHALMIC THREE TIMES A DAY TAKING THERATEARS 0.25 % SOLUTION DIRECTED OPHTHALMIC TAKING PRESERVISION/LUTEIN - CAPSULE DIRECTED ORALLY TAKING MOBIC 15 MG TAKE ONE TABLET BY MOUTH EVERY DAY TAKING PAROXETINE HCL 40 MG TAKE ONE TABLET BY MOUTH EVERY MORNING TAKING PERCOCET 5-325 MG TABLET 1 TABLET NEEDED ORALLY ( ORTHO ) EVERY 6 HRS PRN PAIN MDD4 TAKING LISINOPRIL-HYDROCHLOROTHIAZIDE 20-12.5 MG TABLET 1 TABLET ORALLY ONCE A DAY MEDICATION LIST REVIEWED AND RECONCILED WITH THE PATIENT PAST MEDICAL HISTORY HYPERTENSION HYPERLIPIDEMIA DEPRESSION/ANXIETY TBI - MAULED BY YAZMIN 11/13, [facility] NO OVERNIGHT STAY IFG MORBID OBESITY VIT D DEF ANEMIA, FE DEF - IMPROVED CHR B KNEE PAIN - NCOG KIERA, NONCOMPLIANT WITH CPAP CHR B KNEE PAIN CHR LOW BACK PAIN ALLERGIES N.K.D.A. SURGICAL HISTORY RIGHT KNEE ARTHROSCOPY LEFT EYE CORNEAL TRANSPLANT. 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 KNEE SURGERY-LEFT 11/2014 LEFT HAND SURGERY 06/2016 COLONOSCOPY- NEGATIVE 2016 RIGHT HAND SURGERY 2016 LEFT CATARACT REMOVAL WITH LENS IMPLANT 2014 LEFT CORNEA TRANSPLANT 05/2018 ARTHROSCOPY RIGHT KNEE, DR LACY NCOG 12/07/18 FAMILY HISTORY FATHER: 70'S YRS, CVA, HEART DISEASE, DIAGNOSED WITH HYPERTENSION, UNSPECIFIED CEREBRAL ARTERY OCCLUSION WITH CEREBRAL INFARCTION MOTHER: ALIVE 84 YRS, UNKNOWN MEDICAL CONDITIONS, HYPERTENSION SIBLINGS: ALIVE, UNKNOWN, HYPERTENSION 1 BROTHER(S) , 1 SISTER(S) . DENIES KNOWN FIRST DEGREE RELATIVE WITH COLORECTAL CA. SOCIAL HISTORY GENERAL: TOBACCO USE ARE YOU A:FORMER SMOKER ADDITIONAL FINDINGS: TOBACCO USERCHEWS TOBACCO USES VERY RARELY HIV / HEP-C SCREENING HIV TEST OFFERED TO PATIENT:YES DATE OFFERED:11/16/2018 TEST ACCEPTED:NO HEP-C TEST OFFERED TO PATIENT:YES DATE OFFERED:11/16/2018 REASON:PATIENT DECLINED TEST ACCEPTED:NO REASON:PATIENT DECLINED BROCHURE PROVIDED TO PATIENTNO HOUSING: LIVES WITH MOTHER. 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 DIET: REGULAR. LANGUAGE LANGUAGES SPOKEN:RUSSIAN DOMESTIC VIOLENCE DO YOU FEEL SAFE IN YOUR ENVIRONMENT?YES BMI CARE GOAL FOLLOW-UP ABOVE NORMAL BMI FOLLOW-UPFEEDING REGIME, WEIGHT MONITORING RECREATIONAL DRUG USE DRUG USE?NO EXERCISE: NO REGULAR EXERCISE. LEARNING BARRIERS / SPECIAL NEEDS CHANGE FROM LAST VISIT?NO BARRIERS TO LEARNING?NO HEARING IMPAIRED?NO VISION IMPAIRED?NO COGNITIVELY IMPAIRED?NO READINESS TO LEARN?YES LEARNING PREFERENCES?NO LEARNING CAPABILITIES PRESENT?YES EMOTIONAL BARRIERS?NO SPECIAL DEVICES?YES :CANE, BRACE, OTHER CRUTCHES, BRACES BILATERAL KNEES LOCK TENDER NEEDED?NO LUNG CANCER SCREENING SMOKING STATUS:FORMER SMOKER PAIN CLINIC PFS, CLERGY, PUBLIC HEALTH REFERRALS PFS REFERRAL NEEDED?NO CLERGY REFERRAL NEEDED?NO PUBLIC HEALTH REFERRAL NEEDED?NO WAS THE PROVIDER NOTIFIED OF ANY PERTINENT INFO? N/A HAS THE PATIENT BEEN EDUCATED REGARDING HIS/HER PLAN OF CARE?YES HAS THE PATIENT BEEN EDUCATED REGARDING PAIN, THE RISK FOR PAIN, THE IMPORTANCE OF EFFECTIVE PAIN MANAGEMENT, AND THE PAIN ASSESSMENT PROCESS?YES LATEX QUESTIONNAIRE LATEX ALLERGY : HAVE YOU EVER DEVELOPED ANY TYPE OF REACTION AFTER HANDLING LATEX PRODUCTS SUCH RUBBER GLOVES, CONDOMS, DIAPHRAGMS, BALLOONS, SOCKS, OR UNDERWEAR?NO DATE ASKED : 05/03/2018 CAFFEINE CAFFEINE USE?YES HOW OFTEN AND HOW MUCH? 1-2 CUPS DAILY ADVANCE DIRECTIVE ADVANCE DIRECTIVE DISCUSSED WITH PATIENT:YES PT DOES NOT HAVE ADVANCED DIRECTIONS, HAS HCP INFORMATION AT HOME, DECLINES ASSISTANCE IN FILLING ONE OUT. MANDAEN [id number] ZOROASTRIAN NO BAPTIST BELIEFS THAT WOULD IMPACT HEALTH CARE. ALCOHOL SCREENING DID YOU HAVE A DRINK CONTAINING ALCOHOL IN THE PAST YEAR?NO POINTS0 INTERPRETATIONNEGATIVE OCCUPATION: ON SSDI, DUE TO KNEE PROBLEMS. SEXUAL HX HAD SEX IN THE LAST 12 MONTHS (VAGINAL, ORAL, OR ANAL)?: NO, HAVE YOU EVER HAD AN STD?: NO. 10/27/17 REVIEWED WITH PT. ADREVIEWED WITH PT 11/17/17 BVREVIEWED WITH PATIENT 12/16/17 1004 JS02/23/18 1422 REVIEWED WITH PT LASREVIEWED WITH PT 03/30/18 1507REVIEWED WITH PATIENT 05/31/18 1139 JSREVIEWED WITH PATIENT 11/11/18 0919 NLJREVIEWED WITH PATIENT 12/15/18 1036 NLJ. HOSPITALIZATION/MAJOR DIAGNOSTIC PROCEDURE SURGERY REVIEW OF SYSTEMS REVIEWED BY: PROVIDER: LOLA ROSS MD . CONSTITUTIONAL: ANY CHANGE IN YOUR MEDICAL CONDITION? NO . CHILLS NO . FEVER NO . INFECTION: DO YOU HAVE NEW INFECTIONS? NO . DO YOU HAVE HISTORY OF MRSA? NO . MUSCULOSKELETAL: ANY NEW PATTERNS OF PAIN OR NUMBNESS? YES, PAIN IS SEVERE X 2-3 DAYS . GASTROENTEROLOGY: ANY NEW CHANGE IN BOWEL CONTROL? NO . GENITOURINARY: ANY NEW CHANGE IN BLADDER CONTROL? NO . IS THERE A CHANCE YOU COULD BE ? NO . HEMATOLOGY/LYMPH: DO YOU TAKE ANY BLOOD THINNERS? (FOR EXAMPLE- COUMADIN, PLAVIX, AGGRENOX, PLATEL, PRADAXA, OR XARELTO) NO . WHEN WAS YOUR LAST DOSE? DATE: TIME: . NEUROLOGY: HAVE YOU FALLEN IN THE PAST 12 MONTHS? YES, FELL 10/2018 FROM RIGHT KNEE WEAKNESS, INJURING SHOULDER WAS SEEN AT [facility] ER IMAGING WAS DONE PT DENIES MEDICINE GIVEN TO HIM AND WAS SENT HOME . ANY NEW EXTREMITY NUMBNESS OR WEAKNESS? YES, RIGHT HAND WEAK FROM RIGHT SHOULDER . CARDIOLOGY: DO YOU HAVE A PACEMAKER OR DEFIBRILLATOR? NO . RESPIRATORY: HAVE YOU BEEN SICK IN THE PAST WEEK? NO . FEVER NO . FLU LIKE SYMPTOMS? NO . COUGH NO . INTEGUMENTARY: DO YOU HAVE ANY RASHES OR OPEN SORES? NO . ALLERGIC/IMMUNO: ARE YOU ALLERGIC TO IV DYE? NO . ANY NEW ALLERGIES? NO . PSYCHIATRIC: DO YOU HAVE THOUGHTS OF HURTING YOURSELF OR SOMEONE ELSE? NO . ARE YOU ABUSED, NEGLECTED, OR IN AN UNSAFE ENVIRONMENT? NO . ENDOCRINOLOGY: ARE YOU DIABETIC? NO . OTHER: DO YOU NEED ANY PRESCRIPTIONS? YES, PERCOSET . IF YES, PLEASE LIST: ____ . ANY NEW PROBLEMS WITH YOUR MEDICATIONS? NO . WHEN DID YOU LAST EAT? ____ . WHEN DID YOU LAST DRINK? ____ . WHAT DID YOU LAST DRINK? ____ . NAME OF PERSON DRIVING YOU HOME? ____ . DO YOU HAVE ANY OTHER QUESTIONS OR CONCERNS NO . VITAL SIGNS WT 390 LBS, HT 5'10", BMI 55.95 INDEX, BP 145/82 MM HG, HR 109 /MIN, RR 18 /MIN, TEMP 96.7 F, OXYGEN SAT % 97%, NA INITIALS SC 16:00, REVIEWED BY: EM. EXAMINATION GENERAL EXAMINATION: PATIENT IS ALERT O X 3 AND COOPERATIVE. ANTALGIC WALK. PATIENT IS LIMPING FROM THE RIGHT LEG. PATIENT IS WEARING AN ACL BRACE ON RIGHT KNEE AND USING A CRUTCH UNDER HIS LEFT ARM. PATIENT IS IN PAIN OVER RIGHT SHOULDER, OFTEN CRIES OUT FROM THE PAIN, AND IS USING AN ICE PACK FOR RELIEF. TENDERNESS AND HYPERPATHIA OVER THE RIGHT SUPRASPINATUS AND INFRASPINATUS MUSCLES. PATIENT CAN ABDUCT LEFT ARM FULLY, BUT RIGHT ARM ONLY TO SHOULDER LEVEL. PRESENCE OF BANDS OF TISSUE AND TRIGGER POINTS WITH RESTRICTION OF MOVEMENT OF THE RIGHT SHOULDER. RIGHT HAND SHOP FITTER IS REDUCED COMPARED WITH THE LEFT SIDE. RIGHT ARM IS WEAKER AT EXTENSION AND FLEXION. RIGHT SHOULDER MRI DONE ON 02/03/2017 SHOWS CHRONIC AC JOINT SEPARATION, OLD CLAVICLE FRACTURE, AND CHONDROMALACIA. MRI OF THE LUMBAR SPINE DONE ON 11/01/2017 SHOWS FACET ARTHROPATHY CHANGES. ASSESSMENTS MYALGIA, OTHER SITE - M79.18 (PRIMARY) PAIN IN RIGHT SHOULDER - M25.511 OTHER CHRONIC PAIN - G89.29 LOW BACK PAIN - M54.5 RIGHT HIP PAIN - M25.551 TREATMENT MYALGIA, OTHER SITE CLINICAL NOTES: WE DISCUSSED SEVERAL ISSUES WITH MR. WYNNE'S PAIN MANAGEMENT CASE. DUE TO THE TRIGGER POINTS, BANDS OF TISSUE, AND RESTRICTION OF MOVEMENT, I WOULD LIKE TO MOVE FORWARD WITH A RIGHT SHOULDER TRIGGER POINT INJECTION AT THIS TIME. WE DISCUSSED THE BENEFITS, RISKS, AND ALTERNATIVES OF THE INJECTION AND THE PATIENT WOULD LIKE TO PROCEED. I AM LOOKING FOR LONG LASTING PAIN RELIEF FROM THIS INJECTION FOR THE PATIENT. I DID A RISK AN OPIOID RISK TOOL ASSESSMENT WITH THE PATIENT TODAY, WHICH HE HAS A SCORE OF 1. URINE TOXICOLOGY DONE ON 03/30/2018 SHOWS CONCURRENT RESULTS, AND ANOTHER UTOX WILL BE PERFORMED TODAY. THE PATIENT WAS REMINDED TO BRING HIS MEDICATIONS WITH HIM TO EACH VISIT. THE PATIENT MENTIONS HIS LEFT OFF GREENHOUSE SUPERINTENDENT KNEE BRACE BROKE AND AN ORDER FOR A REPLACEMENT BRACE IS IN THE WORKS. THE PATIENT WILL FOLLOW UP IN SEVERAL WEEKS AFTER HIS INJECTION TO SEE HOW IT IS HELPING WITH HIS PAIN. I WAS WITH THE PATIENT FOR MORE THAN 30 MINUTES AND MORE THAN HALF OF THAT TIME WAS SPENT DISCUSSING THE PATIENT'S CASE, MEDICATION MANAGEMENT, AND INJECTION THERAPY OPTIONS. INSTRUCTIONS WERE GIVEN, QUESTIONS WERE ANSWERED, PATIENT REPORTS UNDERSTANDING AND AGREES WITH THE PLAN. I, CESAR OLVERA, DOCUMENTED THE ABOVE INFORMATION ACTING A SCRIBE FOR DR. ROSS. I HAVE REVIEWED THE ABOVE DOCUMENT, WRITTEN BY CESAR GAYLE AND I VERIFY THAT IT IS ACCURATE. . PROCEDURES PN WORKMANS' COMP OPINION IN YOUR OPINION, WAS THE INCIDENT THAT THE PATIENT DESCRIBED THE COMPETENT MEDICAL CAUSE OF THIS INJURY/ILLNESS? YES ARE THE PATIENT'S COMPLAINTS CONSISTENT WITH HIS/HER HISTORY OF THE INJURY/ILLNESS? YES IS THE PATIENT'S HISTORY OF THE INJURY/ILLNESS CONSISTENT WITH YOUR OBJECTIVE FINDING? YES WHAT IS THE PERCENTAGE OF TEMPORARY IMPAIRMENT? TOTAL = 100% IS THE PATIENT WORKING? NO DOCTOR ON SITE: LOLA PRO MD PROCEDURE CODES G8427 CURRENT MEDS W/DOSAGES DOCUMENTED G8730 PAIN ASSESS POS TOOL F/U PLAN DOC FA211 ESTABILISHED PATIENT [facility] FACILITY CHARGE DISPOSITION & COMMUNICATION FOLLOW UP REASON: TPI/LT KNEE BRACE ELECTRONICALLY SIGNED BY LOLA ROSS MD, MD ON 01/27/2019 AT 09:55 AM EST DISCLAIMER : THIS IS A VISIT SUMMARY EXTRACTED FROM THE [employer] CHART. IT IS NOT A COPY OF THE [employer] PROGRESS NOTE. CHRISTA
== END ==
LOC: M PAIN 16:00
PROVIDERS: ATTEND Anesthesiology
DX: M79.18 Myalgia, other site (principal); M25.511 Pain in right shoulder; G89.29 Other chronic pain; M54.5 Low back pain; M25.551 Pain in right hip

== ENCOUNTER → 2019-02-24 | Outpatient (CLI) | payer OTHER ==
--- NOTE | 2019-03-11 00:11 | ECWPNPC ---
PATIENT NAME: DULCE WYNNE : 1965 GENDER: MALE VISIT DATE: 02/24/2019 DISCHARGE DATE: 02/24/19927 VISIT LOCKED DATE TIME: PHYSICIAN: KASSIDY JIM RESOURCE: KASSIDY JIM REASON FOR APPOINTMENT 1. MED MGMT HISTORY OF PRESENT ILLNESS HISTORY OF PRESENT ILLNESS: 53 Y/O MALE BEING SEEN FOR F/U OF CHRONIC LOW BACK PAIN,RIGHT SHOULDER PAIN AND RIGHT HIP PAIN.THIS IS A WORK RELATED INJURY WITH DOI 11/09/07.TPI THAT WERE REQUESTED RECENTLY WERE DENIED PER KAVITA 11/2018.CONTINUES WITH FLARE UP OF RIGHT SHOULDER PAIN THAT HAS RESPONDED WELL TO TPI DONE HERE IN PAST.RATING PAIN VAS 7/10. PAIN THE PATIENT DESCRIBES THE PAIN... FALL RISK SCREENING: SCREENING :NO FALLS REPORTED IN THE LAST YEAR CURRENT MEDICATIONS TAKING ATORVASTATIN CALCIUM 80 MG TABLET 1 TABLET ORALLY ONCE A DAY TAKING FISH OIL 1000 MG CAPSULE 2 CAPSULES ORALLY BEFORE BEDTIME TAKING PAXIL 40 MG TABLET 1 TABLET IN THE MORNING ORALLY ONCE A DAY TAKING ZONISAMIDE 50 MG CAPSULE 1 CAPSULE ORALLY TWICE A DAY TAKING SUMATRIPTAN SUCCINATE 100 MG TABLET 1 TABLET NEEDED ORALLY NEEDED TAKING VITAMIN D3 90255 UNITS CAPSULE 1 CAPSULE ORALLY ONCE A WEEK TAKING MAGNESIUM 400 MG TABLET 1 TAB ORALLY DAILY TAKING VITAMIN B12 1000 MCG TABLET EXTENDED RELEASE 1 TABLET ORALLY ONCE A DAY TAKING PRED FORTE 1 % SUSPENSION 1 DROPS INTO L EYE OPHTHALMIC THREE TIMES DAILY TAKING REFRESH EYE ITCH RELIEF TAKING REFRESH LIQUIGEL 1 % SOLUTION 1 DROP INTO AFFECTED EYE NEEDED OPHTHALMIC THREE TIMES A DAY TAKING THERATEARS 0.25 % SOLUTION DIRECTED OPHTHALMIC TAKING PRESERVISION/LUTEIN - CAPSULE DIRECTED ORALLY TAKING MOBIC 15 MG TAKE ONE TABLET BY MOUTH EVERY DAY TAKING PERCOCET 5-325 MG TABLET 1 TABLET NEEDED ORALLY ( ORTHO ) EVERY 6 HRS PRN PAIN MDD4 TAKING LISINOPRIL-HYDROCHLOROTHIAZIDE 20-12.5 MG TABLET 1 TABLET ORALLY ONCE A DAY NOT-TAKING KETOROLAC TROMETHAMINE 10 MG TABLET 1 TABLET WITH FOOD OR MILK NEEDED ORALLY EVERY 6 HRS NOT-TAKING PAROXETINE HCL 40 MG TAKE ONE TABLET BY MOUTH EVERY MORNING PAST MEDICAL HISTORY HYPERTENSION HYPERLIPIDEMIA DEPRESSION/ANXIETY TBI - MAULED BY BULL 11/13, [facility] NO OVERNIGHT STAY IFG MORBID OBESITY VIT D DEF ANEMIA, FE DEF - IMPROVED CHR B KNEE PAIN - NCOG KIERA, NONCOMPLIANT WITH CPAP CHR B KNEE PAIN CHR LOW BACK PAIN ALLERGIES N.K.D.A. SURGICAL HISTORY RIGHT KNEE ARTHROSCOPY LEFT EYE CORNEAL TRANSPLANT. 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 KNEE SURGERY-LEFT 11/2014 LEFT HAND SURGERY 06/2016 COLONOSCOPY- NEGATIVE 2016 RIGHT HAND SURGERY 2017 LEFT CATARACT REMOVAL WITH LENS IMPLANT 2014 LEFT CORNEA TRANSPLANT 05/2018 ARTHROSCOPY RIGHT KNEE, DR REGINO SHEIKH 12/07/18 FAMILY HISTORY FATHER: 70'S YRS, CVA, HEART DISEASE, DIAGNOSED WITH HYPERTENSION, UNSPECIFIED CEREBRAL ARTERY OCCLUSION WITH CEREBRAL INFARCTION MOTHER: ALIVE 84 YRS, UNKNOWN MEDICAL CONDITIONS, HYPERTENSION SIBLINGS: ALIVE, UNKNOWN, HYPERTENSION 1 BROTHER(S) , 1 SISTER(S) . DENIES KNOWN FIRST DEGREE RELATIVE WITH COLORECTAL CA. SOCIAL HISTORY GENERAL: TOBACCO USE ARE YOU A:FORMER SMOKER ADDITIONAL FINDINGS: TOBACCO USERCHEWS TOBACCO USES VERY RARELY SMOKING CESSATION INFORMATION GIVEN02/24/2019 HIV / HEP-C SCREENING HIV TEST OFFERED TO PATIENT:YES DATE OFFERED:11/16/2018 TEST ACCEPTED:NO HEP-C TEST OFFERED TO PATIENT:YES DATE OFFERED:11/16/2018 REASON:PATIENT DECLINED TEST ACCEPTED:NO REASON:PATIENT DECLINED BROCHURE PROVIDED TO PATIENTNO HOUSING: LIVES WITH MOTHER. 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 DIET: REGULAR. LANGUAGE LANGUAGES SPOKEN:QATARI DOMESTIC VIOLENCE DO YOU FEEL SAFE IN YOUR ENVIRONMENT?YES BMI CARE GOAL FOLLOW-UP ABOVE NORMAL BMI FOLLOW-UPFEEDING REGIME, WEIGHT MONITORING RECREATIONAL DRUG USE DRUG USE?NO EXERCISE: NO REGULAR EXERCISE. LEARNING BARRIERS / SPECIAL NEEDS CHANGE FROM LAST VISIT?NO BARRIERS TO LEARNING?NO HEARING IMPAIRED?NO VISION IMPAIRED?NO COGNITIVELY IMPAIRED?NO READINESS TO LEARN?YES LEARNING PREFERENCES?NO LEARNING CAPABILITIES PRESENT?YES EMOTIONAL BARRIERS?NO SPECIAL DEVICES?YES :CANE, BRACE, OTHER CRUTCHES, BRACES BILATERAL KNEES SHEAR HELPER NEEDED?NO LUNG CANCER SCREENING SMOKING STATUS:FORMER SMOKER PAIN CLINIC PFS, CLERGY, PUBLIC HEALTH REFERRALS PFS REFERRAL NEEDED?NO CLERGY REFERRAL NEEDED?NO PUBLIC HEALTH REFERRAL NEEDED?NO WAS THE PROVIDER NOTIFIED OF ANY PERTINENT INFO? N/A HAS THE PATIENT BEEN EDUCATED REGARDING HIS/HER PLAN OF CARE?YES HAS THE PATIENT BEEN EDUCATED REGARDING PAIN, THE RISK FOR PAIN, THE IMPORTANCE OF EFFECTIVE PAIN MANAGEMENT, AND THE PAIN ASSESSMENT PROCESS?YES LATEX QUESTIONNAIRE LATEX ALLERGY : HAVE YOU EVER DEVELOPED ANY TYPE OF REACTION AFTER HANDLING LATEX PRODUCTS SUCH RUBBER GLOVES, CONDOMS, DIAPHRAGMS, BALLOONS, SOCKS, OR UNDERWEAR?NO DATE ASKED : 05/03/2018 CAFFEINE CAFFEINE USE?YES HOW OFTEN AND HOW MUCH? 1-2 CUPS DAILY ADVANCE DIRECTIVE ADVANCE DIRECTIVE DISCUSSED WITH PATIENT:YES PT DOES NOT HAVE ADVANCED DIRECTIONS, HAS HCP INFORMATION AT HOME, DECLINES ASSISTANCE IN FILLING ONE OUT. MORMON [id number] BAPTIST NO YARSANI BELIEFS THAT WOULD IMPACT HEALTH CARE. ALCOHOL SCREENING DID YOU HAVE A DRINK CONTAINING ALCOHOL IN THE PAST YEAR?NO POINTS0 INTERPRETATIONNEGATIVE OCCUPATION: ON SSDI, DUE TO KNEE PROBLEMS. SEXUAL HX HAD SEX IN THE LAST 12 MONTHS (VAGINAL, ORAL, OR ANAL)?: NO, HAVE YOU EVER HAD AN STD?: NO. 10/27/17 REVIEWED WITH PT. ADREVIEWED WITH PT 11/17/17 BVREVIEWED WITH PATIENT 12/16/17 1004 JS02/23/18 1422 REVIEWED WITH PT LASREVIEWED WITH PT 03/30/18 1507REVIEWED WITH PATIENT 05/31/18 1139 JSREVIEWED WITH PATIENT 11/11/18 0919 NLJREVIEWED WITH PATIENT 12/15/18 1036 NLJ. HOSPITALIZATION/MAJOR DIAGNOSTIC PROCEDURE SURGERY REVIEW OF SYSTEMS REVIEWED BY: PROVIDER: KASSIDY ROMANO . CONSTITUTIONAL: ANY CHANGE IN YOUR MEDICAL CONDITION? NO . CHILLS NO . FEVER NO . INFECTION: DO YOU HAVE NEW INFECTIONS? NO . DO YOU HAVE HISTORY OF MRSA? NO . MUSCULOSKELETAL: ANY NEW PATTERNS OF PAIN OR NUMBNESS? NO . GASTROENTEROLOGY: ANY NEW CHANGE IN BOWEL CONTROL? NO . GENITOURINARY: ANY NEW CHANGE IN BLADDER CONTROL? NO . IS THERE A CHANCE YOU COULD BE ? NO . HEMATOLOGY/LYMPH: DO YOU TAKE ANY BLOOD THINNERS? (FOR EXAMPLE- COUMADIN, PLAVIX, AGGRENOX, PLATEL, PRADAXA, OR XARELTO) NO . WHEN WAS YOUR LAST DOSE? DATE: TIME: . NEUROLOGY: HAVE YOU FALLEN IN THE PAST 12 MONTHS? NO . ANY NEW EXTREMITY NUMBNESS OR WEAKNESS? NO . CARDIOLOGY: DO YOU HAVE A PACEMAKER OR DEFIBRILLATOR? NO . RESPIRATORY: HAVE YOU BEEN SICK IN THE PAST WEEK? NO . FEVER NO . FLU LIKE SYMPTOMS? NO . COUGH NO . INTEGUMENTARY: DO YOU HAVE ANY RASHES OR OPEN SORES? NO . ALLERGIC/IMMUNO: ARE YOU ALLERGIC TO IV DYE? NO . ANY NEW ALLERGIES? NO . PSYCHIATRIC: DO YOU HAVE THOUGHTS OF HURTING YOURSELF OR SOMEONE ELSE? NO . ARE YOU ABUSED, NEGLECTED, OR IN AN UNSAFE ENVIRONMENT? NO . ENDOCRINOLOGY: ARE YOU DIABETIC? NO . OTHER: DO YOU NEED ANY PRESCRIPTIONS? NO . IF YES, PLEASE LIST: ____ . ANY NEW PROBLEMS WITH YOUR MEDICATIONS? NO . WHEN DID YOU LAST EAT? ____ . WHEN DID YOU LAST DRINK? ____ . WHAT DID YOU LAST DRINK? ____ . NAME OF PERSON DRIVING YOU HOME? ____ . DO YOU HAVE ANY OTHER QUESTIONS OR CONCERNS NO . VITAL SIGNS WT 324.0 LBS, HT 5'10", BMI 46.48 INDEX, BP 162/93 MM HG, HR 82 /MIN, RR 18 /MIN, TEMP 96.0 F, OXYGEN SAT % 96%, NA INITIALS AW 0859. EXAMINATION SHOULDER / UPPER ARM: SHOULDER:RIGHT, DECREASED INTERNAL AND EXTERNAL RANGE OF MOTION , PALPATION ELICITS TENDERNESS OVER FRONT AND BACK OF SHOULDER TRIGGER POINTS:RIGHT SHOULDER,RHOMBOID AND TRAPEZIUS.. GENERAL EXAMINATION: GENERALNO ACUTE DISTRESS, WELL NOURISHED AND HYDRATED. PSYCHAPPROPRIATE MOOD AND AFFECT . LUNGS:CLEAR TO AUSCULTATION BILATERALLY, NO WHEEZES, RHONCHI, RALES. HEART:NO MURMURS, REGULAR RATE AND RHYTHM. ASSESSMENTS MYALGIA, OTHER SITE - M79.18 (PRIMARY) PAIN IN RIGHT SHOULDER - M25.511 OTHER CHRONIC PAIN - G89.29 LOW BACK PAIN - M54.5 RIGHT HIP PAIN - M25.551 TREATMENT MYALGIA, OTHER SITE NOTES: W/C TPI RIGHT SHOULDER. PROCEDURES PN WORKMANS' COMP OPINION IN YOUR OPINION, WAS THE INCIDENT THAT THE PATIENT DESCRIBED THE COMPETENT MEDICAL CAUSE OF THIS INJURY/ILLNESS? YES ARE THE PATIENT'S COMPLAINTS CONSISTENT WITH HIS/HER HISTORY OF THE INJURY/ILLNESS? YES IS THE PATIENT'S HISTORY OF THE INJURY/ILLNESS CONSISTENT WITH YOUR OBJECTIVE FINDING? YES WHAT IS THE PERCENTAGE OF TEMPORARY IMPAIRMENT? MODERATE TO MARKED = 66.7% IS THE PATIENT WORKING? NO DOCTOR ON SITE: LOLA PRO MD PROCEDURE CODES FA211 ESTABILISHED PATIENT [facility] CHARGE DISPOSITION & COMMUNICATION FOLLOW UP POST (REASON: W/C TPI RIGHT SHOULDER) ELECTRONICALLY SIGNED BY ROSALINA MEZA ON 03/10/2019 AT 02:29 PM EST DISCLAIMER : THIS IS A VISIT SUMMARY EXTRACTED FROM THE [employer] CHART. IT IS NOT A COPY OF THE [employer] PROGRESS NOTE. CHRISTA
== END ==
LOC: M PAIN 08:45
PROVIDERS: ATTEND Nurse Practitioner Family
DX: M79.18 Myalgia, other site (principal); M25.511 Pain in right shoulder; G89.29 Other chronic pain; M54.5 Low back pain; M25.551 Pain in right hip

== ENCOUNTER → 2019-03-27 | Outpatient (REF) | payer MEDICARE, OTHER ==
[~2019-03-27] MED LIST changes: +ZONI50CA11 PO; -ZONI50CA3 PO
[2019-03-27 14:05] LABS: BASO % 0.4 % (0.0-1.0); EOS # 0.2 10^3/uL (0.0-0.5); EOS % 2.5 % (0.0-3.0); HEMATOCRIT 45.7 % (42.0-52.0); HEMOGLOBIN 14.1 g/dl (13.5-17.5); LYMPH # 2.8 10^3/uL (1.5-5.0); LYMPH % 29.4 % (24.0-44.0); MEAN CORPUSCULAR HEMOGLOBIN 25.7 pg (27.0-33.0); MEAN CORPUSCULAR HGB CONC 30.9 g/dl (32.0-36.5); MEAN CORPUSCULAR VOLUME 83.4 fl (80.0-96.0); MONO # 0.6 10^3/uL (0.0-0.8); MONO % 6.6 % (0.0-5.0); NEUTROPHILS # 5.8 10^3/uL (1.5-8.5); NEUTROPHILS % 60.6 % (36.0-66.0); PLATELET COUNT, AUTOMATED 336 10^3/uL (150-450); RED BLOOD COUNT 5.48 10^6/uL (4.30-6.10); WHITE BLOOD COUNT 9.6 10^3/uL (4.0-10.0)
[2019-03-27 14:20] LABS: ALBUMIN 3.8 GM/DL (3.2-5.2); ALT/SGPT 33 U/L (12-78); BILIRUBIN,TOTAL 0.4 MG/DL (0.2-1.0); BLOOD UREA NITROGEN 14 MG/DL (7-18); CALCIUM LEVEL 9.3 MG/DL (8.5-10.1); CARBON DIOXIDE LEVEL 28 MEQ/L (21-32); CHLORIDE LEVEL 106 MEQ/L (98-107); CHOLESTEROL LEVEL 290 MG/DL (<200); CHOLESTEROL RISK RATIO 6.904 (<5); CREATININE FOR GFR 0.89 MG/DL (0.70-1.30); FERRITIN 594 NG/ML (26-388); GLOMERULAR FILTRATION RATE > 60.0 (>56); GLUCOSE, FASTING 114 MG/DL (70-100); HDL CHOLESTEROL 42 MG/DL (>40); IRON (FE) 71 UG/DL (65-175); LDL CHOLESTEROL 172 MG/DL (<100); NON-HDL-C 248 MG/DL; PERCENT SATURATION 21.4 % (19.7-50.0); POTASSIUM SERUM 4.1 MEQ/L (3.5-5.1); SODIUM LEVEL 142 MEQ/L (136-145); TOTAL IRON BINDING CAPACITY 332 UG/DL (250-450); TOTAL PROTEIN 7.9 GM/DL (6.4-8.2); TRIGLYCERIDES LEVEL 380 MG/DL (<150)
[2019-03-27 14:42] LABS: HEMOGLOBIN A1c 6.5 %
[2019-03-27 14:52] LABS: MAU/CREAT RATIO 103.9 MCG/MG (0.0-30.0)
== END ==
LOC: M SFHCADAM 08:15
PROVIDERS: ATTEND Physician Assistant Medical
DX: I10 Essential (primary) hypertension (principal); R73.01 Impaired fasting glucose; E66.01 Morbid (severe) obesity due to excess calories; D50.9 Iron deficiency anemia, unspecified

== ENCOUNTER → 2019-04-07 | Outpatient (CLI) | payer MEDICARE, OTHER ==
--- NOTE | 2019-04-26 04:46 | ECWPNPC ---
PATIENT NAME: DULCE WYNNE : 1965 GENDER: MALE VISIT DATE: 04/07/2019 DISCHARGE DATE: 04/07/19 1219 VISIT LOCKED DATE TIME: PHYSICIAN: KASSIDY JIM RESOURCE: KASSIDY JIM REASON FOR APPOINTMENT 1. BACK/RIGHT SHOULDER/ RIGHT HIP HISTORY OF PRESENT ILLNESS HISTORY OF PRESENT ILLNESS: HERE FOR EVALUATION OF CHRONIC RIGHT SHOULDER PAIN.HE WAS INJURED SEVERAL YEARS AGO.PAIN BEGAN TO INTENSIFY A FEW WEEKS AGO. RATING PAIN INTENSITY AN 8/10 VAS. DESCRIBES PAIN CONSTANT AND REPORTS NIGHTTIME AWAKENINGS DUE TO, SHARP AND STABBING PAIN. PAIN IS AGGRAVATED BY RANGE OF MOTION JOINT OF THE RIGHT ARM.. PAIN THE PATIENT DESCRIBES THE PAIN... FALL RISK SCREENING: SCREENING :NO FALLS REPORTED IN THE LAST YEAR CURRENT MEDICATIONS TAKING FISH OIL 1000 MG CAPSULE 2 CAPSULES ORALLY BEFORE BEDTIME TAKING PAXIL 40 MG TABLET 1 TABLET IN THE MORNING ORALLY ONCE A DAY TAKING ZONISAMIDE 50 MG CAPSULE 1 CAPSULE ORALLY TWICE A DAY TAKING SUMATRIPTAN SUCCINATE 100 MG TABLET 1 TABLET NEEDED ORALLY NEEDED TAKING VITAMIN D3 76193 UNITS CAPSULE 1 CAPSULE ORALLY ONCE A WEEK TAKING MAGNESIUM 400 MG TABLET 1 TAB ORALLY DAILY TAKING VITAMIN B12 1000 MCG TABLET EXTENDED RELEASE 1 TABLET ORALLY ONCE A DAY TAKING PRED FORTE 1 % SUSPENSION 1 DROPS INTO L EYE OPHTHALMIC THREE TIMES DAILY TAKING REFRESH EYE ITCH RELIEF TAKING REFRESH LIQUIGEL 1 % SOLUTION 1 DROP INTO AFFECTED EYE NEEDED OPHTHALMIC THREE TIMES A DAY TAKING THERATEARS 0.25 % SOLUTION DIRECTED OPHTHALMIC TAKING PRESERVISION/LUTEIN - CAPSULE DIRECTED ORALLY TAKING MOBIC 15 MG TAKE ONE TABLET BY MOUTH EVERY DAY TAKING PERCOCET 5-325 MG TABLET 1 TABLET NEEDED ORALLY ( ORTHO ) EVERY 6 HRS PRN PAIN MDD4 TAKING LISINOPRIL-HYDROCHLOROTHIAZIDE 20-12.5 MG TABLET 1 TABLET ORALLY ONCE A DAY TAKING ATORVASTATIN CALCIUM 80 MG TABLET 1 TABLET ORALLY ONCE A DAY NOT-TAKING KETOROLAC TROMETHAMINE 10 MG TABLET 1 TABLET WITH FOOD OR MILK NEEDED ORALLY EVERY 6 HRS NOT-TAKING PAROXETINE HCL 40 MG TAKE ONE TABLET BY MOUTH EVERY MORNING MEDICATION LIST REVIEWED AND RECONCILED WITH THE PATIENT PAST MEDICAL HISTORY HYPERTENSION HYPERLIPIDEMIA DEPRESSION/ANXIETY TBI - MAULED BY BULL 11/13, [facility] AND [facility] NO OVERNIGHT STAY DM2 03/2019 MORBID OBESITY VIT D DEF ANEMIA, FE DEF - IMPROVED CHR B KNEE PAIN - NCOG KIERA, NONCOMPLIANT WITH CPAP CHR B KNEE PAIN CHR LOW BACK PAIN ALLERGIES N.K.D.A. SURGICAL HISTORY RIGHT KNEE ARTHROSCOPY LEFT EYE CORNEAL TRANSPLANT. 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 KNEE SURGERY-LEFT 11/2014 LEFT HAND SURGERY 06/2016 COLONOSCOPY- NEGATIVE 2016 RIGHT HAND SURGERY 2016 LEFT CATARACT REMOVAL WITH LENS IMPLANT 2014 LEFT CORNEA TRANSPLANT 05/2018 ARTHROSCOPY RIGHT KNEE, DR LACY NCOG 12/07/18 FAMILY HISTORY FATHER: 70'S YRS, CVA, HEART DISEASE, DIAGNOSED WITH UNSPECIFIED CEREBRAL ARTERY OCCLUSION WITH CEREBRAL INFARCTION, HYPERTENSION MOTHER: ALIVE 85 YRS, UNKNOWN MEDICAL CONDITIONS, HYPERTENSION SIBLINGS: ALIVE, UNKNOWN, HYPERTENSION 1 BROTHER(S) , 1 SISTER(S) . DENIES KNOWN FIRST DEGREE RELATIVE WITH COLORECTAL CA. SOCIAL HISTORY GENERAL: TOBACCO USE ARE YOU A:FORMER SMOKER ADDITIONAL FINDINGS: TOBACCO USERCHEWS TOBACCO USES VERY RARELY SMOKING CESSATION INFORMATION GIVEN02/24/2019 HIV / HEP-C SCREENING HIV TEST OFFERED TO PATIENT:YES DATE OFFERED:11/16/2018 TEST ACCEPTED:NO HEP-C TEST OFFERED TO PATIENT:YES DATE OFFERED:11/16/2018 REASON:PATIENT DECLINED TEST ACCEPTED:NO REASON:PATIENT DECLINED BROCHURE PROVIDED TO PATIENTNO HOUSING: LIVES WITH MOTHER. 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 DIET: REGULAR. LANGUAGE LANGUAGES SPOKEN:SPANISH DOMESTIC VIOLENCE DO YOU FEEL SAFE IN YOUR ENVIRONMENT?YES BMI CARE GOAL FOLLOW-UP ABOVE NORMAL BMI FOLLOW-UPFEEDING REGIME, WEIGHT MONITORING RECREATIONAL DRUG USE DRUG USE?NO EXERCISE: NO REGULAR EXERCISE. 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 N/A HAS THE PATIENT BEEN EDUCATED REGARDING HIS/HER PLAN OF CARE?YES HAS THE PATIENT BEEN EDUCATED REGARDING PAIN, THE RISK FOR PAIN, THE IMPORTANCE OF EFFECTIVE PAIN MANAGEMENT, AND THE PAIN ASSESSMENT PROCESS?YES LATEX QUESTIONNAIRE LATEX ALLERGY : HAVE YOU EVER DEVELOPED ANY TYPE OF REACTION AFTER HANDLING LATEX PRODUCTS SUCH RUBBER GLOVES, CONDOMS, DIAPHRAGMS, BALLOONS, SOCKS, OR UNDERWEAR?NO LATEX ALLERGY : HAVE YOU EVER DEVELOPED ANY TYPE OF REACTION DURING OR AFTER DENTAL APPOINTMENT, VAGINAL/RECTAL EXAMINATION, SURGICAL PROCEDURE, OR ANY OTHER EXPOSURE?NO LATEX RISK : HAVE YOU EVER HAD ANY DIFFICULTY BREATHING OR HIVES AFTER EATING OR HANDLING ANY FRUITS, OR VEGETABLES; SUCH KIWI, BANANAS, STONE FRUITS, OR CHESTNUTSNO LATEX RISK : DO YOU HAVE A PREVIOUS PERSONAL HISTORY OF MORE THAN NINE SURGERIES, SPINA BIFIDA, OR REPEATED CATHERIZATIONS? NO LATEX RISK : ARE YOU FREQUENTLY EXPOSED TO LATEX PRODUCTS IN YOUR OCCUPATION?NO DATE ASKED : 05/03/2018 CAFFEINE CAFFEINE USE?YES HOW OFTEN AND HOW MUCH? 1-2 CUPS DAILY ADVANCE DIRECTIVE ADVANCE DIRECTIVE DISCUSSED WITH PATIENT:YES 04/07/2019 PT DOES NOT HAVE ADVANCED DIRECTIONS, HCP INFORMATION GIVEN AT THIS TIME - PATIENT DECLINES ASSISTANCE IN FILLING OUT THE FORM. JS MANDAEN [id number] GNOSTICISM NO LUTHERAN BELIEFS THAT WOULD IMPACT HEALTH CARE. ALCOHOL SCREENING DID YOU HAVE A DRINK CONTAINING ALCOHOL IN THE PAST YEAR?NO POINTS0 INTERPRETATIONNEGATIVE OCCUPATION: ON SSDI, DUE TO KNEE PROBLEMS. SEXUAL HX HAD SEX IN THE LAST 12 MONTHS (VAGINAL, ORAL, OR ANAL)?: NO, HAVE YOU EVER HAD AN STD?: NO. 10/27/17 REVIEWED WITH PT. ADREVIEWED WITH PT 11/17/17 BVREVIEWED WITH PATIENT 12/16/17 1004 JS02/23/18 1422 REVIEWED WITH PT LASREVIEWED WITH PT 03/30/18 1507REVIEWED WITH PATIENT 05/31/18 1139 JSREVIEWED WITH PATIENT 11/11/18 0919 NLJREVIEWED WITH PATIENT 12/15/18 1036 NLJREVIEWED WITH PATIENT 04/07/2019 1143 JS. HOSPITALIZATION/MAJOR DIAGNOSTIC PROCEDURE SURGERY REVIEW OF SYSTEMS REVIEWED BY: PROVIDER: KASSIDY ROMANO . CONSTITUTIONAL: ANY CHANGE IN YOUR MEDICAL CONDITION? NO . CHILLS NO . FEVER NO . INFECTION: DO YOU HAVE NEW INFECTIONS? NO . DO YOU HAVE HISTORY OF MRSA? NO . MUSCULOSKELETAL: ANY NEW PATTERNS OF PAIN OR NUMBNESS? YES, STATES PAIN HAS GOTTEN WORSE, BECOMING MUCH MORE CONSISTENT . GASTROENTEROLOGY: ANY NEW CHANGE IN BOWEL CONTROL? NO . GENITOURINARY: ANY NEW CHANGE IN BLADDER CONTROL? NO . IS THERE A CHANCE YOU COULD BE ? NO . HEMATOLOGY/LYMPH: DO YOU TAKE ANY BLOOD THINNERS? (FOR EXAMPLE- COUMADIN, PLAVIX, AGGRENOX, PLATEL, PRADAXA, OR XARELTO) NO . WHEN WAS YOUR LAST DOSE? DATE: TIME: . NEUROLOGY: HAVE YOU FALLEN IN THE PAST 12 MONTHS? NO . ANY NEW EXTREMITY NUMBNESS OR WEAKNESS? YES, RIGHT ARM NUMBNESS/TINGLING FROM SHOULDER TO 3RD AND 4TH FINGER. ALSO STATES RIGHT ARM WEAKNESS . CARDIOLOGY: DO YOU HAVE A PACEMAKER OR DEFIBRILLATOR? NO . RESPIRATORY: HAVE YOU BEEN SICK IN THE PAST WEEK? NO . FEVER NO . FLU LIKE SYMPTOMS? NO . COUGH NO . INTEGUMENTARY: DO YOU HAVE ANY RASHES OR OPEN SORES? NO . ALLERGIC/IMMUNO: ARE YOU ALLERGIC TO IV DYE? NO . ANY NEW ALLERGIES? NO . PSYCHIATRIC: DO YOU HAVE THOUGHTS OF HURTING YOURSELF OR SOMEONE ELSE? NO . ARE YOU ABUSED, NEGLECTED, OR IN AN UNSAFE ENVIRONMENT? NO . ENDOCRINOLOGY: ARE YOU DIABETIC? NO . OTHER: DO YOU NEED ANY PRESCRIPTIONS? YES . IF YES, PLEASE LIST: ____PERCOCET . ANY NEW PROBLEMS WITH YOUR MEDICATIONS? NO . WHEN DID YOU LAST EAT? ____ . WHEN DID YOU LAST DRINK? ____ . WHAT DID YOU LAST DRINK? ____ . NAME OF PERSON DRIVING YOU HOME? ____ . DO YOU HAVE ANY OTHER QUESTIONS OR CONCERNS YES, STATES RIGHT SHOULDER IS THROBBING . VITAL SIGNS WT 324.2 LBS, HT 5'10", BMI 46.51 INDEX, BP 137/84 MM HG, HR 109 /MIN, RR 18 /MIN, TEMP 96.8 F, OXYGEN SAT % 95%, SAFE IN ENV? (Y/N) YES, REVIEWED BY: RUPAL. EXAMINATION SHOULDER / UPPER ARM: SHOULDER:RIGHT, DECREASED INTERNAL AND EXTERNAL RANGE OF MOTION , PALPATION ELICITS TENDERNESS OVER FRONT AND BACK OF SHOULDER TRIGGER POINTS:RIGHT SHOULDER,RHOMBOID AND TRAPEZIUS.. GENERAL EXAMINATION: GENERALNO ACUTE DISTRESS, WELL NOURISHED AND HYDRATED. PSYCHAPPROPRIATE MOOD AND AFFECT . LUNGS:CLEAR TO AUSCULTATION BILATERALLY, NO WHEEZES, RHONCHI, RALES. HEART:NO MURMURS, REGULAR RATE AND RHYTHM. DIAGNOSTIC TESTS REVIEWEDMRI OF THE RIGHT SHOULDER 2017 . ASSESSMENTS ARTHROPATHY OF RIGHT SHOULDER - M19.011 (PRIMARY) MYALGIA, OTHER SITE - M79.18 TREATMENT ARTHROPATHY OF RIGHT SHOULDER NOTES: TPI RIGHT SHOULDERPT 2XWK X6WK RIGHT SHOULDER ROJM/STRENGTHENING. PROCEDURE CODES FA211 ESTABILISHED PATIENT [facility] CHARGE DISPOSITION & COMMUNICATION FOLLOW UP POST (REASON: TPI RIGHT SHOULDER) ELECTRONICALLY SIGNED BY ROSALINA MEZA ON 04/25/2019 AT 08:39 AM EST DISCLAIMER : THIS IS A VISIT SUMMARY EXTRACTED FROM THE [employer] CHART. IT IS NOT A COPY OF THE [employer] PROGRESS NOTE. CHRISTA
== END ==
LOC: M PAIN 11:15
PROVIDERS: ATTEND Nurse Practitioner Family
DX: M19.011 Primary osteoarthritis, right shoulder (principal); M79.18 Myalgia, other site

== ENCOUNTER → 2019-07-06 | Outpatient (REF) | payer MEDICARE, OTHER ==
[~2019-07-06] MED LIST changes: +CINN500C15 PO
[2019-07-06 14:39] LABS: ALBUMIN 3.6 GM/DL (3.2-5.2); ALT/SGPT 30 U/L (12-78); BILIRUBIN,TOTAL 0.4 MG/DL (0.2-1.0); BLOOD UREA NITROGEN 16 MG/DL (7-18); CALCIUM LEVEL 9.5 MG/DL (8.5-10.1); CARBON DIOXIDE LEVEL 28 MEQ/L (21-32); CHLORIDE LEVEL 104 MEQ/L (98-107); CREATININE FOR GFR 0.92 MG/DL (0.70-1.30); FERRITIN 582 NG/ML (26-388); GLOMERULAR FILTRATION RATE > 60.0 (>56); GLUCOSE, FASTING 193 MG/DL (70-100); IRON (FE) 70 UG/DL (65-175); PERCENT SATURATION 22.9 % (19.7-50.0); POTASSIUM SERUM 3.8 MEQ/L (3.5-5.1); SODIUM LEVEL 139 MEQ/L (136-145); TOTAL IRON BINDING CAPACITY 306 UG/DL (250-450); TOTAL PROTEIN 7.7 GM/DL (6.4-8.2)
[2019-07-06 14:41] LABS: BASO % 0.4 % (0.0-1.0); EOS # 0.2 10^3/uL (0.0-0.5); EOS % 2.1 % (0.0-3.0); HEMOGLOBIN 13.5 g/dl (13.5-17.5); LYMPH # 2.7 10^3/uL (1.5-5.0); LYMPH % 26.8 % (24.0-44.0); MEAN CORPUSCULAR HEMOGLOBIN 25.6 pg (27.0-33.0); MEAN CORPUSCULAR HGB CONC 31.4 g/dl (32.0-36.5); MEAN CORPUSCULAR VOLUME 81.6 fl (80.0-96.0); MONO # 0.4 10^3/uL (0.0-0.8); MONO % 4.4 % (0.0-5.0); NEUTROPHILS # 6.6 10^3/uL (1.5-8.5); PLATELET COUNT, AUTOMATED 382 10^3/uL (150-450); RED BLOOD COUNT 5.27 10^6/uL (4.30-6.10); WHITE BLOOD COUNT 10.1 10^3/uL (4.0-10.0)
== END ==
LOC: M LABDRWAD 14:21
PROVIDERS: ATTEND Nurse Practitioner Family
DX: D50.9 Iron deficiency anemia, unspecified (principal)

== ENCOUNTER → 2019-07-13 | Outpatient (REF) | payer MEDICARE, OTHER ==
[2019-07-13 12:45] LABS: ALBUMIN 3.5 GM/DL (3.2-5.2); ALT/SGPT 33 U/L (12-78); BILIRUBIN,TOTAL 0.4 MG/DL (0.2-1.0); BLOOD UREA NITROGEN 16 MG/DL (7-18); CALCIUM LEVEL 9.3 MG/DL (8.5-10.1); CARBON DIOXIDE LEVEL 28 MEQ/L (21-32); CHLORIDE LEVEL 104 MEQ/L (98-107); CHOLESTEROL LEVEL 197 MG/DL (<200); CHOLESTEROL RISK RATIO 4.804 (<5); CREATININE FOR GFR 0.89 MG/DL (0.70-1.30); GLOMERULAR FILTRATION RATE > 60.0 (>56); GLUCOSE, FASTING 218 MG/DL (70-100); HDL CHOLESTEROL 41 MG/DL (>40); LDL CHOLESTEROL 89 MG/DL (<100); NON-HDL-C 156 MG/DL; POTASSIUM SERUM 3.9 MEQ/L (3.5-5.1); SODIUM LEVEL 140 MEQ/L (136-145); TOTAL PROTEIN 7.6 GM/DL (6.4-8.2); TRIGLYCERIDES LEVEL 334 MG/DL (<150)
[2019-07-13 14:29] LABS: HEMOGLOBIN A1c 6.5 %
== END ==
LOC: M SFHCADAM 09:33
PROVIDERS: ATTEND Physician Assistant Medical
DX: E78.2 Mixed hyperlipidemia (principal); Z79.899 Other long term (current) drug therapy

== ENCOUNTER → 2019-10-18 | Outpatient (REF) | payer MEDICARE, MEDICAID ==
[~2019-10-18] MED LIST changes: -LISI20TA19 PO; +LISI20TA35 PO; +NIFE15CA PO; -NIFE1TAB62 PO
== END ==
LOC: M LAB REF 08:59
PROVIDERS: ATTEND Ophthalmology
DX: H10.32 Unspecified acute conjunctivitis, left eye (principal)

== ENCOUNTER → 2019-12-13 | Outpatient (CLI) | payer OTHER, MEDICARE ==
--- NOTE | 2019-12-14 08:42 | ECWPNPC ---
PATIENT NAME: DULCE WYNNE : 1965 GENDER: MALE VISIT DATE: 12/13/2019 DISCHARGE DATE: 12/13/19 1150 VISIT LOCKED DATE TIME: PHYSICIAN: KASSIDY JIM PHYSICIAN PAGER NO: ACTIVE RESOURCE: KASSIDY JIM REASON FOR APPOINTMENT 1. RIGHT SHOULDER/BACK HISTORY OF PRESENT ILLNESS GENERAL: HERE FOR FOLLOW-UP OF CHRONIC RIGHT SHOULDER, BACK, RIGHT HIP PAIN. CHRONIC PAIN IS THE RESULT OF WORK-RELATED INJURY WITH DATE OF INJURY 2007. PAIN HAS INCREASED OVER THE PAST 6 MONTHS. HAS BENEFITED FROM TRIGGER POINT INJECTIONS INTO HIS RIGHT SHOULDER. RATING PAIN LEVEL AN 8/10 VAS. FINDING IT DIFFICULT TO SLEEP DUE TO RIGHT SHOULDER PAIN. HAS USED PERCOCET 5/325 PERIODICALLY FOR SEVERE PAIN EPISODES IN THE PAST. REPORTS HE HAS NOT HAD ANY IN SEVERAL MONTHS. RATING PAIN VAS 9/10.DESCRIBES PAIN CONSTANT,ACHING AND STABBING.PAIN AWAKENS HIM FROM SLEEP.PAIN IS AGGREVATED WITH ROJM OF RIGHT ARM. -. FALL RISK SCREENING: SCREENING :NO FALLS REPORTED IN THE LAST YEAR PAIN SCREENING: PATIENT HAS A COMPLAINT OF ACUTE OR CHRONIC PAIN :YES LOCATION OF PAIN:RIGHT SHOULDER NURSING NOTE: -. CURRENT MEDICATIONS TAKING FISH OIL 1000 MG CAPSULE 2 CAPSULES ORALLY BEFORE BEDTIME TAKING ZONISAMIDE 50 MG CAPSULE 1 CAPSULE ORALLY TWICE A DAY TAKING SUMATRIPTAN SUCCINATE 100 MG TABLET 1 TABLET NEEDED ORALLY NEEDED TAKING MAGNESIUM 400 MG TABLET 1 TAB ORALLY DAILY TAKING VITAMIN B12 1000 MCG TABLET EXTENDED RELEASE 1 TABLET ORALLY ONCE A DAY TAKING PRED FORTE 1 % SUSPENSION 1 DROPS INTO L EYE OPHTHALMIC THREE TIMES DAILY TAKING REFRESH EYE ITCH RELIEF TAKING REFRESH LIQUIGEL 1 % SOLUTION 1 DROP INTO AFFECTED EYE NEEDED OPHTHALMIC THREE TIMES A DAY TAKING THERATEARS 0.25 % SOLUTION DIRECTED OPHTHALMIC TAKING PRESERVISION/LUTEIN - CAPSULE DIRECTED ORALLY TAKING MOBIC 15 MG TAKE ONE TABLET BY MOUTH EVERY DAY TAKING PERCOCET 5-325 MG TABLET 1 TABLET NEEDED ORALLY ( ORTHO ) EVERY 6 HRS PRN PAIN MDD4, NOTES: BEEN OVER A YEAR TAKING ATORVASTATIN CALCIUM 80 MG TABLET 1 TABLET ORALLY ONCE A DAY TAKING VITAMIN D3 56580 UNITS CAPSULE 1 CAPSULE ORALLY ONCE A WEEK TAKING PAXIL 40 MG TABLET 1 TABLET IN THE MORNING ORALLY ONCE A DAY TAKING LISINOPRIL-HYDROCHLOROTHIAZIDE 20-12.5 MG TABLET 1 TABLET ORALLY ONCE A DAY TAKING TRAMADOL HCL 50 MG TABLET 1 TABLET NEEDED ORALLY ONCE A DAY, NOTES: DR LACY UNKNOWN DOSE NOT-TAKING MOBIC 15 MG TABLET 1 TABLET ORALLY ONCE A DAY NOT-TAKING MAGNESIUM 2000MG NOT-TAKING FENOFIBRATE 145 MG TABLET 1 TABLET WITH FOOD ORALLY ONCE A DAY NOT-TAKING KETOROLAC TROMETHAMINE 10 MG TABLET 1 TABLET WITH FOOD OR MILK NEEDED ORALLY EVERY 6 HRS NOT-TAKING PAROXETINE HCL 40 MG TAKE ONE TABLET BY MOUTH EVERY MORNING MEDICATION LIST REVIEWED AND RECONCILED WITH THE PATIENT PAST MEDICAL HISTORY HYPERTENSION HYPERLIPIDEMIA DEPRESSION/ANXIETY TBI - MAULED BY BULL 11/13, [facility] NO OVERNIGHT STAY DM2 03/2019 MORBID OBESITY VIT D DEF ANEMIA, FE DEF - IMPROVED CHR B KNEE PAIN - NCOG KIERA, NONCOMPLIANT WITH CPAP CHR B KNEE PAIN CHR LOW BACK PAIN ALLERGIES N.K.D.A. SURGICAL HISTORY RIGHT KNEE ARTHROSCOPY LEFT EYE CORNEAL TRANSPLANT. 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 KNEE SURGERY-LEFT 11/2014 LEFT HAND SURGERY 06/2016 COLONOSCOPY- NEGATIVE 2016 RIGHT HAND SURGERY 2016 LEFT CATARACT REMOVAL WITH LENS IMPLANT 2014 LEFT CORNEA TRANSPLANT 05/2018 ARTHROSCOPY RIGHT KNEE, DR LACY NCOG 12/07/18 FAMILY HISTORY FATHER: 70'S YRS, CVA, HEART DISEASE, DIAGNOSED WITH HYPERTENSION, UNSPECIFIED CEREBRAL ARTERY OCCLUSION WITH CEREBRAL INFARCTION MOTHER: ALIVE 85 YRS, UNKNOWN MEDICAL CONDITIONS, HYPERTENSION SIBLINGS: ALIVE, UNKNOWN, HYPERTENSION 1 BROTHER(S) , 1 SISTER(S) . DENIES KNOWN FIRST DEGREE RELATIVE WITH COLORECTAL CA. SOCIAL HISTORY GENERAL: TOBACCO USE ARE YOU A:FORMER SMOKER ADDITIONAL FINDINGS: TOBACCO USERCHEWS TOBACCO USES VERY RARELY SMOKING CESSATION INFORMATION GIVEN02/24/2019 LATEX QUESTIONNAIRE LATEX ALLERGY : HAVE YOU EVER DEVELOPED ANY TYPE OF REACTION AFTER HANDLING LATEX PRODUCTS SUCH RUBBER GLOVES, CONDOMS, DIAPHRAGMS, BALLOONS, SOCKS, OR UNDERWEAR?NO LATEX ALLERGY : HAVE YOU EVER DEVELOPED ANY TYPE OF REACTION DURING OR AFTER DENTAL APPOINTMENT, VAGINAL/RECTAL EXAMINATION, SURGICAL PROCEDURE, OR ANY OTHER EXPOSURE?NO DATE ASKED : 05/03/2018 LATEX RISK : HAVE YOU EVER HAD ANY DIFFICULTY BREATHING OR HIVES AFTER EATING OR HANDLING ANY FRUITS, OR VEGETABLES; SUCH KIWI, BANANAS, STONE FRUITS, OR CHESTNUTSNO LATEX RISK : DO YOU HAVE A PREVIOUS PERSONAL HISTORY OF MORE THAN NINE SURGERIES, SPINA BIFIDA, OR REPEATED CATHERIZATIONS? NO LATEX RISK : ARE YOU FREQUENTLY EXPOSED TO LATEX PRODUCTS IN YOUR OCCUPATION?NO LUNG CANCER SCREENING SMOKING STATUS:FORMER SMOKER BMI CARE GOAL FOLLOW-UP ABOVE NORMAL BMI FOLLOW-UPFEEDING REGIME, WEIGHT MONITORING ALCOHOL SCREENING DID YOU HAVE A DRINK CONTAINING ALCOHOL IN THE PAST YEAR?NO POINTS0 INTERPRETATIONNEGATIVE RECREATIONAL DRUG USE DRUG USE?NO CAFFEINE CAFFEINE USE?YES HOW OFTEN AND HOW MUCH? 1-2 CUPS DAILY SEXUAL HX HAD SEX IN THE LAST 12 MONTHS (VAGINAL, ORAL, OR ANAL)?: NO, HAVE YOU EVER HAD AN STD?: NO. HIV / HEP-C SCREENING HIV TEST OFFERED TO PATIENT:YES DATE OFFERED:11/16/2018 TEST ACCEPTED:NO HEP-C TEST OFFERED TO PATIENT:YES DATE OFFERED:11/16/2018 REASON:PATIENT DECLINED TEST ACCEPTED:NO REASON:PATIENT DECLINED BROCHURE PROVIDED TO PATIENTNO YARSANISM [id number] [employer]NABAPTIST NO JEW BELIEFS THAT WOULD IMPACT HEALTH CARE. LANGUAGE LANGUAGES SPOKEN:[employer] DIPLOMA. 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 DIET: REGULAR. EXERCISE: NO REGULAR EXERCISE. PAIN CLINIC PFS, CLERGY, PUBLIC HEALTH REFERRALS PFS REFERRAL NEEDED?NO CLERGY REFERRAL NEEDED?NO PUBLIC HEALTH REFERRAL NEEDED?NO WAS THE PROVIDER NOTIFIED OF ANY PERTINENT INFO? N/A HAS THE PATIENT BEEN EDUCATED REGARDING HIS/HER PLAN OF CARE?YES HAS THE PATIENT BEEN EDUCATED REGARDING PAIN, THE RISK FOR PAIN, THE IMPORTANCE OF EFFECTIVE PAIN MANAGEMENT, AND THE PAIN ASSESSMENT PROCESS?YES HOUSING: LIVES WITH MOTHER. ADVANCE DIRECTIVE ADVANCE DIRECTIVE DISCUSSED WITH PATIENT:YES 04/07/2019 PT DOES NOT HAVE ADVANCED DIRECTIONS, HCP INFORMATION GIVEN AT THIS TIME - PATIENT DECLINES ASSISTANCE IN FILLING OUT THE FORM. JS 10/27/17 REVIEWED WITH PT. ADREVIEWED WITH PT 11/17/17 BVREVIEWED WITH PATIENT 12/16/17 1004 JS02/23/18 1422 REVIEWED WITH PT LASREVIEWED WITH PT 03/30/18 1507REVIEWED WITH PATIENT 05/31/18 1139 JSREVIEWED WITH PATIENT 11/11/18 0919 NLJREVIEWED WITH PATIENT 12/15/18 1036 NLJREVIEWED WITH PATIENT 04/07/2019 1143 JS. HOSPITALIZATION/MAJOR DIAGNOSTIC PROCEDURE SURGERY REVIEW OF SYSTEMS CONSTITUTIONAL: ANY RECENT FEVER NO . CHILLS NO . WEIGHT CHANGE OF UNKNOWN REASONS NO . GASTROENTEROLOGY: NEW UNEXPLAINABLE CHANGES IN BOWEL CONTROL NO . CONSTIPATION NO . GENITOURINARY: ANY NEW CHANGE IN BLADDER CONTROL? NO . NEUROLOGY: NEW ONSET DIZZINESS OR NEUROLOGICAL CHANGES NOT MENTIONED NO . NEW NUMBNESS OR PAIN PATTERNS NOT MENTIONED AND PERTINENT TO TODAY'S VISIT NO . CARDIOLOGY: NEW CHEST PRESSURE NO . NEW CHEST PAIN NO . RESPIRATORY: UNEXPLAINABLE COUGH NO . NEW SHORTNESS OF BREATH NO . VITAL SIGNS WT 335.2 LBS, HT 5'10", BMI 48.09 INDEX, BP 137/87 MM HG, HR 81 /MIN, RR 18 /MIN, TEMP 95.6 F, OXYGEN SAT % 94%, SAFE IN ENV? (Y/N) YES, NA INITIALS [id number]. EXAMINATION SHOULDER / UPPER ARM: SHOULDER:RIGHT, DECREASED INTERNAL AND EXTERNAL RANGE OF MOTION , PALPATION ELICITS TENDERNESS OVER FRONT AND BACK OF SHOULDER TRIGGER POINTS:RIGHT SHOULDER,RHOMBOID AND TRAPEZIUS.. GENERAL EXAMINATION: GENERALNO ACUTE DISTRESS, WELL NOURISHED AND HYDRATED. PSYCHAPPROPRIATE MOOD AND AFFECT . LUNGS:CLEAR TO AUSCULTATION BILATERALLY, NO WHEEZES, RHONCHI, RALES. HEART:NO MURMURS, REGULAR RATE AND RHYTHM. DIAGNOSTIC TESTS REVIEWEDMRI OF THE RIGHT SHOULDER 2016 . ASSESSMENTS ARTHROPATHY OF RIGHT SHOULDER - M19.011 (PRIMARY) MYALGIA, OTHER SITE - M79.18 TREATMENT ARTHROPATHY OF RIGHT SHOULDER REFILL PERCOCET TABLET, 5-325 MG, 1 TABLET NEEDED, ORALLY ( ORTHO ), EVERY 6 HRS PRN PAIN MDD4, 30 DAYS, 45, REFILLS 0, NOTES: BEEN OVER A YEAR NOTES: W/C REQUEST TPI RIGHT SHOULDER, RIGHT UPPER BACK , [facility] NARCOTIC AGREEMENT WAS REVIEWED AND SIGNED TODAY BY THE PATIENT. SEE ATTACHED DOCUMENT FOR FULL DETAILS; SPECIFIC ISSUES WERE REVIEWED: 1) KEEP PAIN MEDS IN THEIR ORIGINAL BOTTLES AND ANY WEEKLY PLANNERS ARE TO BE BROUGHT TO THE PAIN CENTER AT EVERY VISIT. 2) THE PATIENT IS NOT TO INCREASE DOSING OR TIMING OF THEIR PAIN MEDICATION WITHOUT SPECIFIC DIRECTION OF THEIR PAIN CENTERPROVIDER (NOT ER OR OTHER PROVIDERS). 3) ALL PAIN MEDS ARE TO BE KEPT SECURED, IN A LOCKED BOX. 4) NO PAIN MEDS ARE TO BE SHARED WITH ANY OTHER PERSON FOR ANY REASON. 5) NO PAIN MEDS MAY BE TAKEN FROM ANY FRIENDS OR RELATIVES FOR ANY REASON 6) NO MEDS OR SUBSTANCES WHICH ARE NOT LEGAL ARE TO BE USED- NO MARIJUANA, NO COCAINE, AMPHETAMINES, HEROIN, OR OTHERS ARE EVER TO BE USED. 7)URINE TESTING IS DONE TO ACCOUNT FOR MEDS AND SUBSTANCES BEING TAKEN AND WILL BE DONE RANDOMLY. , ISTOP REGISTRY REVIEWED . , RISKS OF NARCOTIC/OPIOD MEDICATIONS INCLUDES BUT IS NOT LIMITED TO RISK OF DEPENDANCE/DEVELOPMENT OF ADDICTION, MOOD DISTURBANCE AND DEPRESSION, OSTEOPOROSIS, HORMONAL AND LABIDAL CHANGES, RESPIRATORY DEPRESSION AND . PATIENT IS ADVISED NOT TO DRIVE OR DRINK ALCOHOL WHILE ON THESE MEDICATIONS. PROCEDURES PN WORKMANS' COMP OPINION IN YOUR OPINION, WAS THE INCIDENT THAT THE PATIENT DESCRIBED THE COMPETENT MEDICAL CAUSE OF THIS INJURY/ILLNESS? YES ARE THE PATIENT'S COMPLAINTS CONSISTENT WITH HIS/HER HISTORY OF THE INJURY/ILLNESS? YES IS THE PATIENT'S HISTORY OF THE INJURY/ILLNESS CONSISTENT WITH YOUR OBJECTIVE FINDING? YES WHAT IS THE PERCENTAGE OF TEMPORARY IMPAIRMENT? MODERATE TO MARKED = 66.7% IS THE PATIENT WORKING? NO DOCTOR ON SITE: LOLA PRO MD PROCEDURE CODES FA211 ESTABILISHED PATIENT [facility] CHARGE DISPOSITION & COMMUNICATION FOLLOW UP POST PROC. (REASON: W/C REQUEST TPI RIGHT SHOULDER,RIGHT UPPER BACK R) ELECTRONICALLY SIGNED BY ROSALINA MEZA ON 12/14/2019 AT 08:41 AM EDT DISCLAIMER : THIS IS A VISIT SUMMARY EXTRACTED FROM THE [employer] CHART. IT IS NOT A COPY OF THE [employer] [facility] [place] PROGRESS NOTE. CHRISTA
--- NOTE | 2019-12-14 08:43 | ECWPNPC ---
PATIENT NAME: DULCE WYNNE : 1965 GENDER: MALE VISIT DATE: 12/13/2019 DISCHARGE DATE: 12/13/19 1150 VISIT LOCKED DATE TIME: PHYSICIAN: KASSIDY JIM PHYSICIAN PAGER NO: ACTIVE RESOURCE: KASSIDY JIM REASON FOR APPOINTMENT 1. RIGHT SHOULDER/BACK HISTORY OF PRESENT ILLNESS GENERAL: HERE FOR FOLLOW-UP OF CHRONIC RIGHT SHOULDER, BACK, RIGHT HIP PAIN. CHRONIC PAIN IS THE RESULT OF WORK-RELATED INJURY WITH DATE OF INJURY 2007. PAIN HAS INCREASED OVER THE PAST 6 MONTHS. HAS BENEFITED FROM TRIGGER POINT INJECTIONS INTO HIS RIGHT SHOULDER. RATING PAIN LEVEL AN 8/10 VAS. FINDING IT DIFFICULT TO SLEEP DUE TO RIGHT SHOULDER PAIN. HAS USED PERCOCET 5/325 PERIODICALLY FOR SEVERE PAIN EPISODES IN THE PAST. REPORTS HE HAS NOT HAD ANY IN SEVERAL MONTHS. RATING PAIN VAS 9/10.DESCRIBES PAIN CONSTANT,ACHING AND STABBING.PAIN AWAKENS HIM FROM SLEEP.PAIN IS AGGREVATED WITH ROJM OF RIGHT ARM. -. FALL RISK SCREENING: SCREENING :NO FALLS REPORTED IN THE LAST YEAR PAIN SCREENING: PATIENT HAS A COMPLAINT OF ACUTE OR CHRONIC PAIN :YES LOCATION OF PAIN:RIGHT SHOULDER NURSING NOTE: -. CURRENT MEDICATIONS TAKING FISH OIL 1000 MG CAPSULE 2 CAPSULES ORALLY BEFORE BEDTIME TAKING ZONISAMIDE 50 MG CAPSULE 1 CAPSULE ORALLY TWICE A DAY TAKING SUMATRIPTAN SUCCINATE 100 MG TABLET 1 TABLET NEEDED ORALLY NEEDED TAKING MAGNESIUM 400 MG TABLET 1 TAB ORALLY DAILY TAKING VITAMIN B12 1000 MCG TABLET EXTENDED RELEASE 1 TABLET ORALLY ONCE A DAY TAKING PRED FORTE 1 % SUSPENSION 1 DROPS INTO L EYE OPHTHALMIC THREE TIMES DAILY TAKING REFRESH EYE ITCH RELIEF TAKING REFRESH LIQUIGEL 1 % SOLUTION 1 DROP INTO AFFECTED EYE NEEDED OPHTHALMIC THREE TIMES A DAY TAKING THERATEARS 0.25 % SOLUTION DIRECTED OPHTHALMIC TAKING PRESERVISION/LUTEIN - CAPSULE DIRECTED ORALLY TAKING MOBIC 15 MG TAKE ONE TABLET BY MOUTH EVERY DAY TAKING PERCOCET 5-325 MG TABLET 1 TABLET NEEDED ORALLY ( ORTHO ) EVERY 6 HRS PRN PAIN MDD4, NOTES: BEEN OVER A YEAR TAKING ATORVASTATIN CALCIUM 80 MG TABLET 1 TABLET ORALLY ONCE A DAY TAKING VITAMIN D3 53798 UNITS CAPSULE 1 CAPSULE ORALLY ONCE A WEEK TAKING PAXIL 40 MG TABLET 1 TABLET IN THE MORNING ORALLY ONCE A DAY TAKING LISINOPRIL-HYDROCHLOROTHIAZIDE 20-12.5 MG TABLET 1 TABLET ORALLY ONCE A DAY TAKING TRAMADOL HCL 50 MG TABLET 1 TABLET NEEDED ORALLY ONCE A DAY, NOTES: DR LACY UNKNOWN DOSE NOT-TAKING MOBIC 15 MG TABLET 1 TABLET ORALLY ONCE A DAY NOT-TAKING MAGNESIUM 2000MG NOT-TAKING FENOFIBRATE 145 MG TABLET 1 TABLET WITH FOOD ORALLY ONCE A DAY NOT-TAKING KETOROLAC TROMETHAMINE 10 MG TABLET 1 TABLET WITH FOOD OR MILK NEEDED ORALLY EVERY 6 HRS NOT-TAKING PAROXETINE HCL 40 MG TAKE ONE TABLET BY MOUTH EVERY MORNING MEDICATION LIST REVIEWED AND RECONCILED WITH THE PATIENT PAST MEDICAL HISTORY HYPERTENSION HYPERLIPIDEMIA DEPRESSION/ANXIETY TBI - MAULED BY BULL 11/13, [facility] NO OVERNIGHT STAY DM2 03/2019 MORBID OBESITY VIT D DEF ANEMIA, FE DEF - IMPROVED CHR B KNEE PAIN - NCOG KIERA, NONCOMPLIANT WITH CPAP CHR B KNEE PAIN CHR LOW BACK PAIN ALLERGIES N.K.D.A. SURGICAL HISTORY RIGHT KNEE ARTHROSCOPY LEFT EYE CORNEAL TRANSPLANT. 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 KNEE SURGERY-LEFT 11/2014 LEFT HAND SURGERY 06/2016 COLONOSCOPY- NEGATIVE 2016 RIGHT HAND SURGERY 2016 LEFT CATARACT REMOVAL WITH LENS IMPLANT 2014 LEFT CORNEA TRANSPLANT 05/2018 ARTHROSCOPY RIGHT KNEE, DR LACY NCOG 12/07/18 FAMILY HISTORY FATHER: 70'S YRS, CVA, HEART DISEASE, DIAGNOSED WITH HYPERTENSION, UNSPECIFIED CEREBRAL ARTERY OCCLUSION WITH CEREBRAL INFARCTION MOTHER: ALIVE 85 YRS, UNKNOWN MEDICAL CONDITIONS, HYPERTENSION SIBLINGS: ALIVE, UNKNOWN, HYPERTENSION 1 BROTHER(S) , 1 SISTER(S) . DENIES KNOWN FIRST DEGREE RELATIVE WITH COLORECTAL CA. SOCIAL HISTORY GENERAL: TOBACCO USE ARE YOU A:FORMER SMOKER ADDITIONAL FINDINGS: TOBACCO USERCHEWS TOBACCO USES VERY RARELY SMOKING CESSATION INFORMATION GIVEN02/24/2019 LATEX QUESTIONNAIRE LATEX ALLERGY : HAVE YOU EVER DEVELOPED ANY TYPE OF REACTION AFTER HANDLING LATEX PRODUCTS SUCH RUBBER GLOVES, CONDOMS, DIAPHRAGMS, BALLOONS, SOCKS, OR UNDERWEAR?NO LATEX ALLERGY : HAVE YOU EVER DEVELOPED ANY TYPE OF REACTION DURING OR AFTER DENTAL APPOINTMENT, VAGINAL/RECTAL EXAMINATION, SURGICAL PROCEDURE, OR ANY OTHER EXPOSURE?NO DATE ASKED : 05/03/2018 LATEX RISK : HAVE YOU EVER HAD ANY DIFFICULTY BREATHING OR HIVES AFTER EATING OR HANDLING ANY FRUITS, OR VEGETABLES; SUCH KIWI, BANANAS, STONE FRUITS, OR CHESTNUTSNO LATEX RISK : DO YOU HAVE A PREVIOUS PERSONAL HISTORY OF MORE THAN NINE SURGERIES, SPINA BIFIDA, OR REPEATED CATHERIZATIONS? NO LATEX RISK : ARE YOU FREQUENTLY EXPOSED TO LATEX PRODUCTS IN YOUR OCCUPATION?NO LUNG CANCER SCREENING SMOKING STATUS:FORMER SMOKER BMI CARE GOAL FOLLOW-UP ABOVE NORMAL BMI FOLLOW-UPFEEDING REGIME, WEIGHT MONITORING ALCOHOL SCREENING DID YOU HAVE A DRINK CONTAINING ALCOHOL IN THE PAST YEAR?NO POINTS0 INTERPRETATIONNEGATIVE RECREATIONAL DRUG USE DRUG USE?NO CAFFEINE CAFFEINE USE?YES HOW OFTEN AND HOW MUCH? 1-2 CUPS DAILY SEXUAL HX HAD SEX IN THE LAST 12 MONTHS (VAGINAL, ORAL, OR ANAL)?: NO, HAVE YOU EVER HAD AN STD?: NO. HIV / HEP-C SCREENING HIV TEST OFFERED TO PATIENT:YES DATE OFFERED:11/16/2018 TEST ACCEPTED:NO HEP-C TEST OFFERED TO PATIENT:YES DATE OFFERED:11/16/2018 REASON:PATIENT DECLINED TEST ACCEPTED:NO REASON:PATIENT DECLINED BROCHURE PROVIDED TO PATIENTNO YAZIDI [id number] ORIENTAL ORTHODOX NO JEWISH BELIEFS THAT WOULD IMPACT HEALTH CARE. LANGUAGE LANGUAGES SPOKEN:[employer] DIPLOMA. LEARNING BARRIERS / SPECIAL NEEDS CHANGE FROM LAST VISIT?NO BARRIERS TO LEARNING?NO HEARING IMPAIRED?NO VISION IMPAIRED?NO COGNITIVELY IMPAIRED?NO READINESS TO LEARN?YES LEARNING PREFERENCES?NO LEARNING CAPABILITIES PRESENT?YES EMOTIONAL BARRIERS?NO SPECIAL DEVICES?YES :CANE, BRACE, OTHER CRUTCHES, BRACES BILATERAL KNEES PRINTED CIRCUIT BOARD PANELS TRIMMER NEEDED?NO DOMESTIC VIOLENCE DO YOU FEEL SAFE IN YOUR ENVIRONMENT?YES OCCUPATION: ON SSDI, DUE TO KNEE PROBLEMS. DIET: REGULAR. EXERCISE: NO REGULAR EXERCISE. PAIN CLINIC PFS, CLERGY, PUBLIC HEALTH REFERRALS PFS REFERRAL NEEDED?NO CLERGY REFERRAL NEEDED?NO PUBLIC HEALTH REFERRAL NEEDED?NO WAS THE PROVIDER NOTIFIED OF ANY PERTINENT INFO? N/A HAS THE PATIENT BEEN EDUCATED REGARDING HIS/HER PLAN OF CARE?YES HAS THE PATIENT BEEN EDUCATED REGARDING PAIN, THE RISK FOR PAIN, THE IMPORTANCE OF EFFECTIVE PAIN MANAGEMENT, AND THE PAIN ASSESSMENT PROCESS?YES HOUSING: LIVES WITH MOTHER. ADVANCE DIRECTIVE ADVANCE DIRECTIVE DISCUSSED WITH PATIENT:YES 04/07/2019 PT DOES NOT HAVE ADVANCED DIRECTIONS, HCP INFORMATION GIVEN AT THIS TIME - PATIENT DECLINES ASSISTANCE IN FILLING OUT THE FORM. JS 10/27/17 REVIEWED WITH PT. ADREVIEWED WITH PT 11/17/17 BVREVIEWED WITH PATIENT 12/16/17 1004 JS02/23/18 1422 REVIEWED WITH PT LASREVIEWED WITH PT 03/30/18 1507REVIEWED WITH PATIENT 05/31/18 1139 JSREVIEWED WITH PATIENT 11/11/18 0919 NLJREVIEWED WITH PATIENT 12/15/18 1036 NLJREVIEWED WITH PATIENT 04/07/2019 1143 JS. HOSPITALIZATION/MAJOR DIAGNOSTIC PROCEDURE SURGERY REVIEW OF SYSTEMS CONSTITUTIONAL: ANY RECENT FEVER NO . CHILLS NO . WEIGHT CHANGE OF UNKNOWN REASONS NO . GASTROENTEROLOGY: NEW UNEXPLAINABLE CHANGES IN BOWEL CONTROL NO . CONSTIPATION NO . GENITOURINARY: ANY NEW CHANGE IN BLADDER CONTROL? NO . NEUROLOGY: NEW ONSET DIZZINESS OR NEUROLOGICAL CHANGES NOT MENTIONED NO . NEW NUMBNESS OR PAIN PATTERNS NOT MENTIONED AND PERTINENT TO TODAY'S VISIT NO . CARDIOLOGY: NEW CHEST PRESSURE NO . NEW CHEST PAIN NO . RESPIRATORY: UNEXPLAINABLE COUGH NO . NEW SHORTNESS OF BREATH NO . VITAL SIGNS WT 335.2 LBS, HT 5'10", BMI 48.09 INDEX, BP 137/87 MM HG, HR 81 /MIN, RR 18 /MIN, TEMP 95.6 F, OXYGEN SAT % 94%, SAFE IN ENV? (Y/N) YES, NA INITIALS [id number]. EXAMINATION SHOULDER / UPPER ARM: SHOULDER:RIGHT, DECREASED INTERNAL AND EXTERNAL RANGE OF MOTION , PALPATION ELICITS TENDERNESS OVER FRONT AND BACK OF SHOULDER TRIGGER POINTS:RIGHT SHOULDER,RHOMBOID AND TRAPEZIUS.. GENERAL EXAMINATION: GENERALNO ACUTE DISTRESS, WELL NOURISHED AND HYDRATED. PSYCHAPPROPRIATE MOOD AND AFFECT . LUNGS:CLEAR TO AUSCULTATION BILATERALLY, NO WHEEZES, RHONCHI, RALES. HEART:NO MURMURS, REGULAR RATE AND RHYTHM. DIAGNOSTIC TESTS REVIEWEDMRI OF THE RIGHT SHOULDER 2016 . ASSESSMENTS ARTHROPATHY OF RIGHT SHOULDER - M19.011 (PRIMARY) MYALGIA, OTHER SITE - M79.18 TREATMENT ARTHROPATHY OF RIGHT SHOULDER REFILL PERCOCET TABLET, 5-325 MG, 1 TABLET NEEDED, ORALLY ( ORTHO ), EVERY 6 HRS PRN PAIN MDD4, 30 DAYS, 45, REFILLS 0, NOTES: BEEN OVER A YEAR NOTES: W/C REQUEST TPI RIGHT SHOULDER, RIGHT UPPER BACK , [facility] NARCOTIC AGREEMENT WAS REVIEWED AND SIGNED TODAY BY THE PATIENT. SEE ATTACHED DOCUMENT FOR FULL DETAILS; SPECIFIC ISSUES WERE REVIEWED: 1) KEEP PAIN MEDS IN THEIR ORIGINAL BOTTLES AND ANY WEEKLY PLANNERS ARE TO BE BROUGHT TO THE PAIN CENTER AT EVERY VISIT. 2) THE PATIENT IS NOT TO INCREASE DOSING OR TIMING OF THEIR PAIN MEDICATION WITHOUT SPECIFIC DIRECTION OF THEIR PAIN CENTERPROVIDER (NOT ER OR OTHER PROVIDERS). 3) ALL PAIN MEDS ARE TO BE KEPT SECURED, IN A LOCKED BOX. 4) NO PAIN MEDS ARE TO BE SHARED WITH ANY OTHER PERSON FOR ANY REASON. 5) NO PAIN MEDS MAY BE TAKEN FROM ANY FRIENDS OR RELATIVES FOR ANY REASON 6) NO MEDS OR SUBSTANCES WHICH ARE NOT LEGAL ARE TO BE USED- NO MARIJUANA, NO COCAINE, AMPHETAMINES, HEROIN, OR OTHERS ARE EVER TO BE USED. 7)URINE TESTING IS DONE TO ACCOUNT FOR MEDS AND SUBSTANCES BEING TAKEN AND WILL BE DONE RANDOMLY. , ISTOP REGISTRY REVIEWED . , RISKS OF NARCOTIC/OPIOD MEDICATIONS INCLUDES BUT IS NOT LIMITED TO RISK OF DEPENDANCE/DEVELOPMENT OF ADDICTION, MOOD DISTURBANCE AND DEPRESSION, OSTEOPOROSIS, HORMONAL AND LABIDAL CHANGES, RESPIRATORY DEPRESSION AND . PATIENT IS ADVISED NOT TO DRIVE OR DRINK ALCOHOL WHILE ON THESE MEDICATIONS. PROCEDURES PN WORKMANS' COMP OPINION IN YOUR OPINION, WAS THE INCIDENT THAT THE PATIENT DESCRIBED THE COMPETENT MEDICAL CAUSE OF THIS INJURY/ILLNESS? YES ARE THE PATIENT'S COMPLAINTS CONSISTENT WITH HIS/HER HISTORY OF THE INJURY/ILLNESS? YES IS THE PATIENT'S HISTORY OF THE INJURY/ILLNESS CONSISTENT WITH YOUR OBJECTIVE FINDING? YES WHAT IS THE PERCENTAGE OF TEMPORARY IMPAIRMENT? MODERATE TO MARKED = 66.7% IS THE PATIENT WORKING? NO DOCTOR ON SITE: LOLA PRO MD PROCEDURE CODES FA211 ESTABILISHED PATIENT [facility] CHARGE DISPOSITION & COMMUNICATION FOLLOW UP POST PROC. (REASON: W/C REQUEST TPI RIGHT SHOULDER,RIGHT UPPER BACK R) ELECTRONICALLY SIGNED BY ROSALINA MEZA ON 12/14/2019 AT 08:41 AM EDT DISCLAIMER : THIS IS A VISIT SUMMARY EXTRACTED FROM THE [employer] CHART. IT IS NOT A COPY OF THE [employer] PROGRESS NOTE. CHRISTA
== END ==
LOC: M PAIN 10:30
PROVIDERS: ATTEND Nurse Practitioner Family
DX: M19.011 Primary osteoarthritis, right shoulder (principal); M79.18 Myalgia, other site; I10 Essential (primary) hypertension; E78.5 Hyperlipidemia, unspecified; F41.9 Anxiety disorder, unspecified; F32.9 Major depressive disorder, single episode, unspecified; Z87.820 Personal history of traumatic brain injury; E11.9 Type 2 diabetes mellitus without complications; E66.01 Morbid (severe) obesity due to excess calories; E55.9 Vitamin D deficiency, unspecified; D50.9 Iron deficiency anemia, unspecified; M54.5 Low back pain; M25.561 Pain in right knee; M25.562 Pain in left knee; Z87.891 Personal history of nicotine dependence; Z79.891 Long term (current) use of opiate analgesic; Z79.899 Other long term (current) drug therapy

== ENCOUNTER → 2019-12-29 | Outpatient (CLI) | payer OTHER, MEDICARE ==
--- NOTE | 2020-01-02 13:58 | ECWPNPC ---
PATIENT NAME: DULCE WYNNE : 1965 GENDER: MALE VISIT DATE: 12/29/2019 DISCHARGE DATE: 12/29/19 1021 VISIT LOCKED DATE TIME: PHYSICIAN: KASSIDY JIM PHYSICIAN PAGER NO: ACTIVE RESOURCE: KASSIDY JIM REASON FOR APPOINTMENT 1. DISCUSS DENIAL TPI HISTORY OF PRESENT ILLNESS DEPRESSION SCREENING: PHQ-2 (2015 EDITION) LITTLE INTEREST OR PLEASURE IN DOING THINGS?NOT AT ALL FEELING DOWN, DEPRESSED, OR HOPELESS?NOT AT ALL TOTAL SCORE0 GENERAL: HERE FOR FOLLOW-UP OF PERSISTENT RIGHT SHOULDER AND RIGHT SIDED PAIN. WE HAD REQUESTED AGAIN FROM [employer] TO DO TRIGGER POINT INJECTIONS WHICH HAVE BEEN HELPFUL IN THE PAST. WE ARE GETTING THE MESSAGE THAT PATIENT'S [employer] CASE IS CLOSED. PROCEDURES OVER THE PAST 2 YEARS THAT WE HAVE REQUESTED HAVE BEEN DENIED. INFORMED PATIENT TODAY THAT I WOULD HAVE TO SEE HIM FOR CHRONIC PAIN UNDER HIS PRIVATE INSURANCE. CURRENTLY HE IS USING [facility] SPARINGLY FOR SEVERE PAIN EPISODES. WE WOULD NEED TO SEE HIM FOR MEDICINE MANAGEMENT EVERY 3 MONTHS UNDER HIS PRIVATE INSURANCE IF HE WANTS TO CONTINUE TO BE SEEN FOR HIS CHRONIC PAIN. HE STATES THAT HE WILL BE CONTACTING HIS ALLERGIST/IMMUNOLOGIST PHYSICIAN AND I INFORMED HIM THAT WE WOULD ACTUALLY HAVE TO SEE PAPERWORK IN ORDER TO SEE HIM UNDER [facility] HERE AT THE PAIN CENTER IN THE FUTURE.-. FALL RISK SCREENING: SCREENING :NO FALLS REPORTED IN THE LAST YEAR NONE PAIN SCREENING: PATIENT HAS A COMPLAINT OF ACUTE OR CHRONIC PAIN :YES LOCATION OF PAIN:RIGHT SHOULDER RIGHT SIDE OF BACK RIGHT SHOULDER-8 RIGHT SIDE OF BACK -7 INTENSITY OF PAIN (SCALE OF 1 TO 10):8 WHAT DOES YOUR PAIN FEEL LIKE:ACHING, BURNING, THROBBING, SHOOTING DURATION:ALL DAY PAIN IS INCREASED BY:ACTIVITIES PAIN IS DECREASED BY:USE OF PAIN MEDICATIONS NURSING NOTE: -. PAIN CENTER INTAKE QUESTIONS: DO YOU HAVE A HISTORY OF MRSA? :NO DO YOU TAKE A BLOOD THINNERS? :NO DO YOU HAVE ANY BLEEDING DISORDERS? :NO ANY NEW NUMBNESS OR WEAKNESS IN YOUR LEGS OR ARMS? :NO ANY PACEMAKER,DEFIBRILLATOR, OR DORSAL COLUMN STIMULATOR? :NO DO YOU HAVE ANY RASHES OR OPEN SORES? :NO ARE YOU ALLERGIC TO IV DYE? :NO ARE YOU DIABETIC? :NO ANY NEW PROBLEMS WITH YOUR MEDICATIONS? :NO HAVE YOU RECEIVED A VACCINE IN THE PAST 30 DAYS? :NO DO YOU PLAN TO RECEIVE A VACCINE IN THE NEXT 21 DAYS? :YES JANUARY 07 GOING TO GET FLU VAC DO YOU NEED ANY PRESCRIPTION? :NO DO YOU TAKE ANY IMMUNOSUPPRESSIVE MEDICATIONS? :NO IS THERE A CHANCE YOU COULD BE ? :NO ARE YOU BREAST FEEDING? :NO CURRENT MEDICATIONS TAKING FISH OIL 1000 MG CAPSULE 2 CAPSULES ORALLY BEFORE BEDTIME TAKING ZONISAMIDE 50 MG CAPSULE 1 CAPSULE ORALLY TWICE A DAY TAKING SUMATRIPTAN SUCCINATE 100 MG TABLET 1 TABLET NEEDED ORALLY NEEDED TAKING MAGNESIUM 400 MG TABLET 1 TAB ORALLY DAILY TAKING VITAMIN B12 1000 MCG TABLET EXTENDED RELEASE 1 TABLET ORALLY ONCE A DAY TAKING PRED FORTE 1 % SUSPENSION 1 DROPS INTO L EYE OPHTHALMIC THREE TIMES DAILY TAKING REFRESH EYE ITCH RELIEF TAKING REFRESH LIQUIGEL 1 % SOLUTION 1 DROP INTO AFFECTED EYE NEEDED OPHTHALMIC THREE TIMES A DAY TAKING THERATEARS 0.25 % SOLUTION DIRECTED OPHTHALMIC TAKING PRESERVISION/LUTEIN - CAPSULE DIRECTED ORALLY TAKING MOBIC 15 MG TAKE ONE TABLET BY MOUTH EVERY DAY TAKING ATORVASTATIN CALCIUM 80 MG TABLET 1 TABLET ORALLY ONCE A DAY TAKING VITAMIN D3 29598 UNITS CAPSULE 1 CAPSULE ORALLY ONCE A WEEK TAKING PAXIL 40 MG TABLET 1 TABLET IN THE MORNING ORALLY ONCE A DAY TAKING LISINOPRIL-HYDROCHLOROTHIAZIDE 20-12.5 MG TABLET 1 TABLET ORALLY ONCE A DAY TAKING TRAMADOL HCL 50 MG TABLET 1 TABLET NEEDED ORALLY ONCE A DAY, NOTES: DR LACY UNKNOWN DOSE TAKING PERCOCET 5-325 MG TABLET 1 TABLET NEEDED ORALLY ( ORTHO ) EVERY 6 HRS PRN PAIN MDD4, NOTES: BEEN OVER A YEAR NOT-TAKING MOBIC 15 MG TABLET 1 TABLET ORALLY ONCE A DAY NOT-TAKING MAGNESIUM 2000MG NOT-TAKING FENOFIBRATE 145 MG TABLET 1 TABLET WITH FOOD ORALLY ONCE A DAY NOT-TAKING KETOROLAC TROMETHAMINE 10 MG TABLET 1 TABLET WITH FOOD OR MILK NEEDED ORALLY EVERY 6 HRS NOT-TAKING PAROXETINE HCL 40 MG TAKE ONE TABLET BY MOUTH EVERY MORNING MEDICATION LIST REVIEWED AND RECONCILED WITH THE PATIENT PAST MEDICAL HISTORY HYPERTENSION HYPERLIPIDEMIA DEPRESSION/ANXIETY TBI - MAULED BY YAZMIN 11/13, [facility] NO OVERNIGHT STAY DM2 03/2019 MORBID OBESITY VIT D DEF ANEMIA, FE DEF - IMPROVED CHR B KNEE PAIN - NCOG KIERA, NONCOMPLIANT WITH CPAP CHR B KNEE PAIN CHR LOW BACK PAIN ALLERGIES N.K.D.A. SURGICAL HISTORY RIGHT KNEE ARTHROSCOPY LEFT EYE CORNEAL TRANSPLANT. 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 KNEE SURGERY-LEFT 11/2014 LEFT HAND SURGERY 06/2016 COLONOSCOPY- NEGATIVE 2017 RIGHT HAND SURGERY 2017 LEFT CATARACT REMOVAL WITH LENS IMPLANT 2014 LEFT CORNEA TRANSPLANT 05/2018 ARTHROSCOPY RIGHT KNEE, DR REGINO SHEIKH 12/07/18 FAMILY HISTORY FATHER: 70'S YRS, CVA, HEART DISEASE, DIAGNOSED WITH HYPERTENSION, UNSPECIFIED CEREBRAL ARTERY OCCLUSION WITH CEREBRAL INFARCTION MOTHER: ALIVE 85 YRS, UNKNOWN MEDICAL CONDITIONS, HYPERTENSION SIBLINGS: ALIVE, UNKNOWN, HYPERTENSION 1 BROTHER(S) , 1 SISTER(S) . DENIES KNOWN FIRST DEGREE RELATIVE WITH COLORECTAL CA. SOCIAL HISTORY GENERAL: TOBACCO USE ARE YOU A:FORMER SMOKER ADDITIONAL FINDINGS: TOBACCO USERCHEWS TOBACCO USES VERY RARELY SMOKING CESSATION INFORMATION GIVEN02/24/2019 LATEX QUESTIONNAIRE LATEX ALLERGY : HAVE YOU EVER DEVELOPED ANY TYPE OF REACTION AFTER HANDLING LATEX PRODUCTS SUCH RUBBER GLOVES, CONDOMS, DIAPHRAGMS, BALLOONS, SOCKS, OR UNDERWEAR?NO LATEX ALLERGY : HAVE YOU EVER DEVELOPED ANY TYPE OF REACTION DURING OR AFTER DENTAL APPOINTMENT, VAGINAL/RECTAL EXAMINATION, SURGICAL PROCEDURE, OR ANY OTHER EXPOSURE?NO LATEX RISK : HAVE YOU EVER HAD ANY DIFFICULTY BREATHING OR HIVES AFTER EATING OR HANDLING ANY FRUITS, OR VEGETABLES; SUCH KIWI, BANANAS, STONE FRUITS, OR CHESTNUTSNO LATEX RISK : DO YOU HAVE A PREVIOUS PERSONAL HISTORY OF MORE THAN NINE SURGERIES, SPINA BIFIDA, OR REPEATED CATHERIZATIONS? NO LATEX RISK : ARE YOU FREQUENTLY EXPOSED TO LATEX PRODUCTS IN YOUR OCCUPATION?NO DATE ASKED : 12/29/2019 LUNG CANCER SCREENING SMOKING STATUS:FORMER SMOKER BMI CARE GOAL FOLLOW-UP ABOVE NORMAL BMI FOLLOW-UPFEEDING REGIME, WEIGHT MONITORING ALCOHOL SCREENING DID YOU HAVE A DRINK CONTAINING ALCOHOL IN THE PAST YEAR?NO POINTS0 INTERPRETATIONNEGATIVE RECREATIONAL DRUG USE DRUG USE?NO CAFFEINE CAFFEINE USE?YES HOW OFTEN AND HOW MUCH? 1-2 CUPS DAILY SEXUAL HX HAD SEX IN THE LAST 12 MONTHS (VAGINAL, ORAL, OR ANAL)?: NO, HAVE YOU EVER HAD AN STD?: NO. HIV / HEP-C SCREENING HIV TEST OFFERED TO PATIENT:YES DATE OFFERED:11/16/2018 TEST ACCEPTED:NO HEP-C TEST OFFERED TO PATIENT:YES DATE OFFERED:11/16/2018 REASON:PATIENT DECLINED TEST ACCEPTED:NO REASON:PATIENT DECLINED BROCHURE PROVIDED TO PATIENTNO SABIANISM [id number] ZOROASTRIANISM NO CATHOLIC BELIEFS THAT WOULD IMPACT HEALTH CARE. LANGUAGE LANGUAGES SPOKEN:[employer] DIPLOMA. LEARNING BARRIERS / SPECIAL NEEDS CHANGE FROM LAST VISIT?NO BARRIERS TO LEARNING?NO HEARING IMPAIRED?NO VISION IMPAIRED?NO COGNITIVELY IMPAIRED?NO READINESS TO LEARN?YES LEARNING PREFERENCES?NO LEARNING CAPABILITIES PRESENT?YES EMOTIONAL BARRIERS?NO SPECIAL DEVICES?YES :CANE, BRACE, OTHER CRUTCHES, BRACES BILATERAL KNEES CONTROL VALVE TECHNICIAN NEEDED?NO DOMESTIC VIOLENCE DO YOU FEEL SAFE IN YOUR ENVIRONMENT?YES OCCUPATION: ON SSDI, DUE TO KNEE PROBLEMS. DIET: REGULAR. EXERCISE: NO REGULAR EXERCISE. PAIN CLINIC PFS, CLERGY, PUBLIC HEALTH REFERRALS PFS REFERRAL NEEDED?NO CLERGY REFERRAL NEEDED?NO PUBLIC HEALTH REFERRAL NEEDED?NO WAS THE PROVIDER NOTIFIED OF ANY PERTINENT INFO? N/A HAS THE PATIENT BEEN EDUCATED REGARDING HIS/HER PLAN OF CARE?YES HAS THE PATIENT BEEN EDUCATED REGARDING PAIN, THE RISK FOR PAIN, THE IMPORTANCE OF EFFECTIVE PAIN MANAGEMENT, AND THE PAIN ASSESSMENT PROCESS?YES HOUSING: LIVES WITH MOTHER. ADVANCE DIRECTIVE ADVANCE DIRECTIVE DISCUSSED WITH PATIENT:YES 04/07/2019 PT DOES NOT HAVE ADVANCED DIRECTIONS, HCP INFORMATION GIVEN AT THIS TIME - PATIENT DECLINES ASSISTANCE IN FILLING OUT THE FORM. JS 10/27/17 REVIEWED WITH PT. ADREVIEWED WITH PT 11/17/17 BVREVIEWED WITH PATIENT 12/16/17 1004 JS02/23/18 1422 REVIEWED WITH PT LASREVIEWED WITH PT 03/30/18 1507REVIEWED WITH PATIENT 05/31/18 1139 JSREVIEWED WITH PATIENT 11/11/18 0919 NLJREVIEWED WITH PATIENT 12/15/18 1036 NLJREVIEWED WITH PATIENT 04/07/2019 1143 JS. HOSPITALIZATION/MAJOR DIAGNOSTIC PROCEDURE SURGERY REVIEW OF SYSTEMS CONSTITUTIONAL: ANY RECENT FEVER NO . CHILLS NO . WEIGHT CHANGE OF UNKNOWN REASONS NO . GASTROENTEROLOGY: NEW UNEXPLAINABLE CHANGES IN BOWEL CONTROL NO . CONSTIPATION NO . GENITOURINARY: ANY NEW CHANGE IN BLADDER CONTROL? NO . NEUROLOGY: NEW ONSET DIZZINESS OR NEUROLOGICAL CHANGES NOT MENTIONED NO . NEW NUMBNESS OR PAIN PATTERNS NOT MENTIONED AND PERTINENT TO TODAY'S VISIT NO . CARDIOLOGY: NEW CHEST PRESSURE NO . NEW CHEST PAIN NO . RESPIRATORY: UNEXPLAINABLE COUGH NO . NEW SHORTNESS OF BREATH NO . VITAL SIGNS WT 334.0 LBS, HT 5'10", BMI 47.92 INDEX, BP 148/74 MM HG, HR 97 /MIN, RR 18 /MIN, TEMP 95.6 F, OXYGEN SAT % 95%, SAFE IN ENV? (Y/N) YES, NA INITIALS AW 0949, REVIEWED BY: RUPAL. EXAMINATION GENERAL EXAMINATION: GENERALAWAKE,ALERT ,PLEASANT . PSYCHAFFECT NORMAL . LUNGS:LUNG EL ARE CLEAR TO AUSCULTATION BILATERALLY. GOOD MOVEMENT OF AIR . HEART:S1, S2 IN A REGULAR RATE AND RHYTHM. NO SIGNIFICANT MURMURS, RUBS OR GALLOPS NOTED . ASSESSMENTS ARTHROPATHY OF RIGHT SHOULDER - M19.011 (PRIMARY) MYALGIA, OTHER SITE - M79.18 TREATMENT ARTHROPATHY OF RIGHT SHOULDER CONTINUE PERCOCET TABLET, 5-325 MG, 1 TABLET NEEDED, ORALLY ( ORTHO ), EVERY 6 HRS PRN PAIN MDD4, NOTES: BEEN OVER A YEAR NOTES: FOLLOW-UP WILL BE SCHEDULED IN 6-8 WEEKS. HE WILL NEED TO BE SEEN IN CLINIC TO HAVE URINE TOXICOLOGY DONE FOR MEDICATION MANAGEMENT. PROCEDURE CODES FA211 ESTABILISHED PATIENT [facility] CHARGE DISPOSITION & COMMUNICATION FOLLOW UP 6-8 WEEKS (REASON: NARCOTIC PAIN MEDICATION MANAGEMENT/URINE TOXICOLOGY) ELECTRONICALLY SIGNED BY ROSALINA MEZA ON 01/02/2020 AT 11:16 AM EDT DISCLAIMER : THIS IS A VISIT SUMMARY EXTRACTED FROM THE [employer] CHART. IT IS NOT A COPY OF THE [employer] PROGRESS NOTE. CHRISTA
== END ==
LOC: M PAIN 09:30
PROVIDERS: ATTEND Nurse Practitioner Family
DX: M19.011 Primary osteoarthritis, right shoulder (principal); M79.18 Myalgia, other site; I10 Essential (primary) hypertension; E11.9 Type 2 diabetes mellitus without complications; E55.9 Vitamin D deficiency, unspecified; G47.33 Obstructive sleep apnea (adult) (pediatric); F17.220 Nicotine dependence, chewing tobacco, uncomplicated; Z86.59 Personal history of other mental and behavioral disorders; Z87.820 Personal history of traumatic brain injury; E66.01 Morbid (severe) obesity due to excess calories; Z68.42 Body mass index [BMI] 45.0-49.9, adult; Z79.899 Other long term (current) drug therapy

== ENCOUNTER → 2020-01-08 | Outpatient (REF) | payer MEDICARE, OTHER ==
[2020-01-08 18:01] LABS: BASO % 0.4 % (0.0-1.0); EOS # 0.3 10^3/uL (0.0-0.5); EOS % 2.6 % (0.0-3.0); HEMATOCRIT 41.7 % (42.0-52.0); HEMOGLOBIN 13.3 g/dl (13.5-17.5); LYMPH # 2.4 10^3/uL (1.5-5.0); LYMPH % 24.9 % (24.0-44.0); MEAN CORPUSCULAR HGB CONC 31.9 g/dl (32.0-36.5); MEAN CORPUSCULAR VOLUME 81.4 fl (80.0-96.0); MONO # 0.5 10^3/uL (0.0-0.8); MONO % 5.7 % (0.0-5.0); NEUTROPHILS # 6.3 10^3/uL (1.5-8.5); NEUTROPHILS % 65.9 % (36.0-66.0); PLATELET COUNT, AUTOMATED 341 10^3/uL (150-450); RED BLOOD COUNT 5.12 10^6/uL (4.30-6.10); WHITE BLOOD COUNT 9.5 10^3/uL (4.0-10.0)
[2020-01-08 18:26] LABS: MALB URINE SIEMENS 61.1 MG/L; MAU/CREAT RATIO 44.9 MCG/MG (0.0-30.0)
[2020-01-08 18:27] LABS: ALBUMIN 3.4 GM/DL (3.2-5.2); ALT/SGPT 37 U/L (12-78); BILIRUBIN,TOTAL 0.3 MG/DL (0.2-1.0); BLOOD UREA NITROGEN 21 MG/DL (7-18); CALCIUM LEVEL 10.1 MG/DL (8.5-10.1); CARBON DIOXIDE LEVEL 26 MEQ/L (21-32); CHLORIDE LEVEL 107 MEQ/L (98-107); CHOLESTEROL LEVEL 192 MG/DL (<200); CHOLESTEROL RISK RATIO 4.682 (<5); CREATININE FOR GFR 0.89 MG/DL (0.70-1.30); GLOMERULAR FILTRATION RATE > 60.0 (>56); GLUCOSE, FASTING 193 MG/DL (70-100); HDL CHOLESTEROL 41 MG/DL (>40); LDL CHOLESTEROL 91 MG/DL (<100); NON-HDL-C 151 MG/DL; SODIUM LEVEL 140 MEQ/L (136-145); TOTAL 25(OH) VITAMIN D 31.6 NG/ML (30.0-100.0); TOTAL PROTEIN 7.4 GM/DL (6.4-8.2); TRIGLYCERIDES LEVEL 301 MG/DL (<150)
[2020-01-08 20:10] LABS: HEMOGLOBIN A1c 6.7 %
== END ==
LOC: M SFHCADAM 13:29
PROVIDERS: ATTEND Physician Assistant Medical
DX: I10 Essential (primary) hypertension (principal); E66.01 Morbid (severe) obesity due to excess calories; E78.2 Mixed hyperlipidemia; E11.9 Type 2 diabetes mellitus without complications; E55.9 Vitamin D deficiency, unspecified; R80.9 Proteinuria, unspecified; E78.1 Pure hyperglyceridemia

== ENCOUNTER → 2020-03-17 | Outpatient (CLI) | payer MEDICARE, OTHER | LOC: M LABSMTC 10:02 | PROVIDERS: ATTEND Anesthesiology | DX: Z20.822 Contact with and (suspected) exposure to COVID-19 (principal) ==

== ENCOUNTER → 2020-03-22 | Outpatient (CLI) | payer MEDICARE, OTHER ==
[~2020-03-22] MED LIST changes: +BUPIVACAINE HCL 0.25% 10ML VIAL As Ordered ONE; +BUPIVACAINE HCL 0.25% 30ML VIAL As Ordered ONE; +TRIAMCINOLONE ACETONIDE SUSP 40 MG/ML VIAL (J3301) As Ordered ONE
--- NOTE | 2020-03-26 04:08 | ECWPNPC ---
PATIENT NAME: DULCE WYNNE : 1965 GENDER: MALE VISIT DATE: 03/22/2020 DISCHARGE DATE: 03/22/20 1055 VISIT LOCKED DATE TIME: PHYSICIAN: LOLA ROSS MD PHYSICIAN PAGER NO: ACTIVE RESOURCE: LOLA ROSS MD REASON FOR APPOINTMENT 1. TRIGGER POINT INJECTIONS RIGHT THROACIC AND RIGHT SHOULDER HISTORY OF PRESENT ILLNESS GENERAL: -. FALL RISK SCREENING: SCREENING :NO FALLS REPORTED IN THE LAST YEAR PAIN SCREENING: PATIENT HAS A COMPLAINT OF ACUTE OR CHRONIC PAIN :YES LOCATION OF PAIN:RIGHT SHOULDER, UPPER BACK INTENSITY OF PAIN (SCALE OF 1 TO 10):8 WHAT DOES YOUR PAIN FEEL LIKE:ACHING, CONTINOUS, STABBING, THROBBING DURATION:CONTINOUS, CONSTANT PAIN IS INCREASED BY:ACTIVITIES PAIN IS DECREASED BY:USE OF PAIN MEDICATIONS, OTHERS REST NURSING NOTE: -. PAIN CENTER INTAKE QUESTIONS: DO YOU HAVE A HISTORY OF MRSA? :NO DO YOU TAKE A BLOOD THINNERS? :NO DO YOU HAVE ANY BLEEDING DISORDERS? :NO ANY NEW NUMBNESS OR WEAKNESS IN YOUR LEGS OR ARMS? :NO ANY PACEMAKER,DEFIBRILLATOR, OR DORSAL COLUMN STIMULATOR? :NO DO YOU HAVE ANY RASHES OR OPEN SORES? :NO ARE YOU ALLERGIC TO IV DYE? :NO ARE YOU DIABETIC? :NO ANY NEW PROBLEMS WITH YOUR MEDICATIONS? :NO HAVE YOU RECEIVED A VACCINE IN THE PAST 30 DAYS? :NO DO YOU PLAN TO RECEIVE A VACCINE IN THE NEXT 21 DAYS? :NO DO YOU TAKE ANY IMMUNOSUPPRESSIVE MEDICATIONS? :NO ANY HISTORY OF SEIZURES? :NO ANY HISTORY OF CARDIAC ISSUES OR EVENTS? :NO DO YOU HAVE SLEEP APNEA? :YES DO YOU WEAR A CPAP?NO ANY RECENT HEAD INJURY? :NO DO YOU HAVE ANY NEW INFECTIONS? :NO IS THERE A CHANCE YOU COULD BE ? :NO ARE YOU BREAST FEEDING? :NO WHEN DID YOU LAST EAT? : 03/21/20201999 WHEN DID YOU LAST DRINK? : 03/22/202030 WHAT DID YOU LAST DRINK? : WATER NAME OF PERSON DRIVING YOU HOME? : -ANDREAS BARNESCHARY DO YOU HAVE ANY OTHER QUESTIONS OR CONCERNS? : - CURRENT MEDICATIONS TAKING FISH OIL 1000 MG CAPSULE 2 CAPSULES ORALLY BEFORE BEDTIME TAKING ZONISAMIDE 100 MG CAPSULE 2 CAPSULES ORALLY AT BEDTIME TAKING SUMATRIPTAN SUCCINATE 100 MG TABLET 1 TABLET NEEDED ORALLY NEEDED TAKING MAGNESIUM 500 MG TABLET 1 TAB ORALLY DAILY TAKING VITAMIN B12 1000 MCG TABLET EXTENDED RELEASE 1 TABLET ORALLY ONCE A DAY TAKING PRED FORTE 1 % SUSPENSION 1 DROPS INTO L EYE OPHTHALMIC THREE TIMES DAILY TAKING REFRESH EYE ITCH RELIEF TAKING REFRESH LIQUIGEL 1 % SOLUTION 1 DROP INTO AFFECTED EYE NEEDED OPHTHALMIC THREE TIMES A DAY TAKING THERATEARS 0.25 % SOLUTION DIRECTED OPHTHALMIC TAKING PRESERVISION/LUTEIN - CAPSULE DIRECTED ORALLY 2 CAPS DAILY TAKING MOBIC 15 MG TAKE ONE TABLET BY MOUTH EVERY DAY TAKING ATORVASTATIN CALCIUM 80 MG TABLET 1 TABLET ORALLY ONCE A DAY TAKING PERCOCET 5-325 MG TABLET 1 TABLET NEEDED ORALLY ( ORTHO ) EVERY 6 HRS PRN PAIN MDD4, NOTES: BEEN OVER A YEAR TAKING LISINOPRIL-HYDROCHLOROTHIAZIDE 20-12.5 MG TABLET 1 TABLET ORALLY ONCE A DAY, NOTES: LAST03/21/2020 0800 TAKING D3-50 1.25 MG (19070 UT) CAPSULE TAKE 1 CAPSULE BY MOUTH ONCE A WEEK TAKING PAXIL 40 MG TABLET 1 TABLET IN THE MORNING ORALLY ONCE A DAY TAKING FENOFIBRATE 145 MG TABLET 1 TABLET WITH FOOD ORALLY ONCE A DAY TAKING ATROPINE SULFATE 1 % SOLUTION 1 APPLICATION INTO THE LOWER EYELID OF AFFECTED EYE OPHTHALMIC BID NOT-TAKING VITAMIN D3 96479 UNITS CAPSULE 1 CAPSULE ORALLY ONCE A WEEK MEDICATION LIST REVIEWED AND RECONCILED WITH THE PATIENT PAST MEDICAL HISTORY HYPERTENSION HYPERLIPIDEMIA DEPRESSION/ANXIETY TBI - MAULED BY YAZMIN 11/13, [facility] AND [facility] NO OVERNIGHT STAY DM2 03/2019 MORBID OBESITY VIT D DEF ANEMIA, FE DEF - IMPROVED CHR B KNEE PAIN - NCOG KIERA, NONCOMPLIANT WITH CPAP CHR B KNEE PAIN CHR LOW BACK PAIN ALLERGIES N.K.D.A. SURGICAL HISTORY RIGHT KNEE ARTHROSCOPY LEFT EYE CORNEAL TRANSPLANT. 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 KNEE SURGERY-LEFT 11/2014 LEFT HAND SURGERY 06/2016 COLONOSCOPY- NEGATIVE 2016 RIGHT HAND SURGERY 2017 LEFT CATARACT REMOVAL WITH LENS IMPLANT 2014 LEFT CORNEA TRANSPLANT 05/2018 ARTHROSCOPY RIGHT KNEE, DR LACY NCOG 12/07/18 FAMILY HISTORY FATHER: 70'S YRS, CVA, HEART DISEASE, DIAGNOSED WITH HYPERTENSION, UNSPECIFIED CEREBRAL ARTERY OCCLUSION WITH CEREBRAL INFARCTION MOTHER: ALIVE 86 YRS, UNKNOWN MEDICAL CONDITIONS, HYPERTENSION SIBLINGS: ALIVE, UNKNOWN, HYPERTENSION 1 BROTHER(S) , 1 SISTER(S) . DENIES KNOWN FIRST DEGREE RELATIVE WITH COLORECTAL CA. SOCIAL HISTORY GENERAL: TOBACCO USE ARE YOU A:FORMER SMOKER ADDITIONAL FINDINGS: TOBACCO USERSNUFF USER USES VERY RARELY SMOKING CESSATION INFORMATION GIVEN02/16/2020 LATEX QUESTIONNAIRE LATEX ALLERGY : HAVE YOU EVER DEVELOPED ANY TYPE OF REACTION AFTER HANDLING LATEX PRODUCTS SUCH RUBBER GLOVES, CONDOMS, DIAPHRAGMS, BALLOONS, SOCKS, OR UNDERWEAR?NO LATEX ALLERGY : HAVE YOU EVER DEVELOPED ANY TYPE OF REACTION DURING OR AFTER DENTAL APPOINTMENT, VAGINAL/RECTAL EXAMINATION, SURGICAL PROCEDURE, OR ANY OTHER EXPOSURE?NO LATEX RISK : HAVE YOU EVER HAD ANY DIFFICULTY BREATHING OR HIVES AFTER EATING OR HANDLING ANY FRUITS, OR VEGETABLES; SUCH KIWI, BANANAS, STONE FRUITS, OR CHESTNUTSNO LATEX RISK : DO YOU HAVE A PREVIOUS PERSONAL HISTORY OF MORE THAN NINE SURGERIES, SPINA BIFIDA, OR REPEATED CATHERIZATIONS? NO LATEX RISK : ARE YOU FREQUENTLY EXPOSED TO LATEX PRODUCTS IN YOUR OCCUPATION?NO DATE ASKED : 03/21/2020 LUNG CANCER SCREENING SMOKING STATUS:FORMER SMOKER BMI CARE GOAL FOLLOW-UP ABOVE NORMAL BMI FOLLOW-UPFEEDING REGIME, WEIGHT MONITORING ALCOHOL SCREENING DID YOU HAVE A DRINK CONTAINING ALCOHOL IN THE PAST YEAR?NO POINTS0 INTERPRETATIONNEGATIVE RECREATIONAL DRUG USE DRUG USE?NO CAFFEINE CAFFEINE USE?YES HOW OFTEN AND HOW MUCH? 1-2 CUPS DAILY SEXUAL HX HAD SEX IN THE LAST 12 MONTHS (VAGINAL, ORAL, OR ANAL)?: NO, HAVE YOU EVER HAD AN STD?: NO. HIV / HEP-C SCREENING HIV TEST OFFERED TO PATIENT:YES DATE OFFERED:11/16/2018 TEST ACCEPTED:NO HEP-C TEST OFFERED TO PATIENT:YES DATE OFFERED:11/16/2018 REASON:PATIENT DECLINED TEST ACCEPTED:NO REASON:PATIENT DECLINED BROCHURE PROVIDED TO PATIENTNO RELIGIOUS [id number] CONGREGATIONAL NO BAPTISM BELIEFS THAT WOULD IMPACT HEALTH CARE. LANGUAGE LANGUAGES SPOKEN:[employer] DIPLOMA. 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 DIET: REGULAR. EXERCISE: NO REGULAR EXERCISE. PAIN CLINIC PFS, CLERGY, PUBLIC HEALTH REFERRALS PFS REFERRAL NEEDED?NO CLERGY REFERRAL NEEDED?NO PUBLIC HEALTH REFERRAL NEEDED?NO WAS THE PROVIDER NOTIFIED OF ANY PERTINENT INFO? N/A HAS THE PATIENT BEEN EDUCATED REGARDING HIS/HER PLAN OF CARE?YES HAS THE PATIENT BEEN EDUCATED REGARDING PAIN, THE RISK FOR PAIN, THE IMPORTANCE OF EFFECTIVE PAIN MANAGEMENT, AND THE PAIN ASSESSMENT PROCESS?YES HOUSING: LIVES WITH MOTHER. ADVANCE DIRECTIVE ADVANCE DIRECTIVE DISCUSSED WITH PATIENT:YES DOES HAVE HEALTH CARE PROXY DIANNA HERNANDEZ HOSPITALIZATION/MAJOR DIAGNOSTIC PROCEDURE SURGERY VITAL SIGNS WT 339 LBS, HT 70 IN, BMI 48.64 INDEX, BP 172/101 MM HG, REPEAT BP 150/98 MM HG, HR 98 /MIN, RR 18 /MIN, TEMP 95.6 F, OXYGEN SAT % 96, NA INITIALS KG. EXAMINATION GENERAL EXAMINATION: THE PATIENT IS ALERT, ORIENTED TIMES THREE AND COOPERATIVE. LUNGS ARE CLEAR TO AUSCULTATION. HEART SHOWS REGULAR RHYTHM, NO MURMURS AND NO GALLOPS. ASSESSMENTS MYALGIA, OTHER SITE - M79.18 (PRIMARY) TREATMENT OTHERS NOTES: PAT COMPLETED 03/21/20. Jeyson ODELL RN 1144-CALL PLACED TO MABEL GAETANO TO INFORM HER OF PATIENT HEART IRREGULARITY. IT WAS OBSERVED BY BULK STATION OPERATOR THAT PATIENT'S HEART WAS BEATING IRREGULAR PRE PROCEDURE. PATIENT WAS ASYMPTOMATIC. DR. ROSS REVIEWED MONITOR STRIP AND ADVISED BULK STATION OPERATOR TO MAKE CONTACT WITH PATIENT PROVIDER. MABEL STATES THAT SHE WILL FOLLOW UP WITH PATIENT. FATOUMATA. PROCEDURES PAIN NURSING RECORD PROCEDURE PHYSICIAN IN ROOM 1028, START 1033, FINISH 1036, PHYSICIAN OUT OF ROOM 1037, OUT OF ROOM 1055, ECG N/A, PATIENT SHIELDED N/A, SAFETY STRAP N/A, PREP ALCOHOL BY DR ROSS, DRESSING TEGADERM BY FATOUMATA LOC: 1. ALERT, ORIENTED 1025 TBRADLEYRN RESP: 1. REGULAR, NO DYSPNEA 1025 TBRADLEYRN COLOR: 1. PINK 1025 TBRADLEYRN SKIN: 1. WARM, DRY 1025 TBRADLEYRN POSITION: 5. SITTING ON STRETCHER 1025 TBRADLEYRN VITALS: 1050 - HR 89, BP 145/96, R 16, SPO2 97 TBRADLEYRN DISCHARGE: POST PAIN 6 1054 - RIGHT SHOULDER RIGHT THORACIC TBRADLEYRN, DRESSING SITE DRY AND INTACT RIGHT SHOULDER, R THORACIC, IV N/A, GAIT STEADY PATIENT VERBALIZES D/C INSTRUCTIONS GIVEN TBJOHNNYINO, TEACHING COMPLETED, PATIENT ACKNOWLEDGES UNDERSTANDING YES, PATIENT DISCHARGED AT 1055 PATIENT INSTRUCTED TO STOP AT ENVIRONMENTAL SERVICES FLOOR TECH PN TRIGGER POINT INJECTION WITH STEROIDS PRE PROCEDURE DIAGNOSIS 1. MYALGIA 2. PAIN AT RIGHT THORACIC AREA AND RIGHT SHOULDER AREA POST PROCEDURE DIAGNOSIS 1. MYALGIA 2. PAIN AT RIGHT THORACIC AREA AND RIGHT SHOULDER AREA PROCEDURE TRIGGER POINT INJECTION AT RIGHT THORACIC AREA AND RIGHT SHOULDER AREA SURGEON DR. LOLA ROSS DISASTER RECOVERY ANALYST NONE ANESTHESIA LOCAL PRE PROCEDURE NOTE THE PATIENT HAS A HISTORY OF CHRONIC PAIN AT THE RIGHT THORACIC AREA AND RIGHT SHOULDER AREA. I EVALUATED THE PATIENT AND REVIEWED THE CHART. THERE IS EVIDENCE OF BANDS OF TISSUE WITH RESTRICTION OF MOVEMENT AND PRESENCE OF TRIGGER POINT AT THE RIGHT THORACIC AREA AND RIGHT SHOULDER AREA. I WENT OVER THE RISKS, ALTERNATIVES, AND BENEFITS ASSOCIATED WITH THIS PROCEDURE. THE PATIENT WOULD LIKE TO PROCEED AND GIVE CONSENT TO PERFORMED THE PROCEDURE. THE PATIENT DENIES UNEXPLAINABLE WEIGHT LOSS, FEVER, CHILLS, OR NEW CHANGES IN URINARY OR BOWEL CONTROL. THE PATIENT IS COVID-19 NEGATIVE DESCRIPTION OF PROCEDURE THE PATIENT WAS BROUGHT TO THE PROCEDURE ROOM AND PLACED IN THE SITTING POSITION. THE AREA WAS CLEANED WITH ALCOHOL. THE PROCEDURE WAS DONE USING ASEPTIC STERILE TECHNIQUE. A TIMEOUT WAS PERFORMED WHERE LATERALITY AND THE SITE OF THE PROCEDURE WERE CHECKED AND CONFIRMED WITH EVERYONE IN THE ROOM. USING A 25-GAUGE NEEDLE, TRIGGER POINTS WERE INJECTED AT THE RIGHT THORACIC AREA AND RIGHT SHOULDER AREA WITH A TOTAL OF 40 ML OF BUPIVACAINE 0.25% AND KENALOG 40 MG. THE MEDICATIONS WERE VERIFIED WITH THE NURSE. THERE WAS NO EVIDENCE OF BLOOD OR PARESTHESIA DURING THE PROCEDURE. THE PATIENT WAS SENT TO THE RECOVERY ROOM. THE PATIENT WAS MOVING THE EXTREMITIES AND DOING WELL. THERE WERE NO COMPLICATIONS DURING THE PROCEDURE. ESTIMATED BLOOD LOSS WAS LESS THAN 5 ML POST PROCEDURE NOTE THE PROCEDURE DONE WAS DISCUSSED WITH THE PATIENT. THE PATIENT WILL BE SEEN IN A FOLLOW UP IN THE NEXT FEW WEEKS. I AM LOOKING FOR LONG LASTING PAIN RELIEF FOR THE PATIENT WITH THIS INTERVENTION. INSTRUCTIONS WERE GIVEN, QUESTIONS WERE ANSWERED, AND THE PATIENT EXPRESSED UNDERSTANDING AND AGREES WITH THE PLAN. I, GEMINI AVITIA, DOCUMENTED THE ABOVE INFORMATION ACTING A SCRIBE FOR DR. ROSS. I HAVE REVIEWED THE ABOVE DOCUMENT, WRITTEN BY GEMINI AVITIA, DRAFTER TOPOGRAPHICAL, AND I VERIFY THAT IT IS ACCURATE PROCEDURE CODES 57985 INJ TRIGGER POINT 03/09 [facility] DISPOSITION & COMMUNICATION FOLLOW UP FOLLOW UP WITH OPERATIONS LEADER (REASON: POST TRIGGER POINT INJECTIONS RIGHT THORACIC AND RIGHT SHOULDER) ELECTRONICALLY SIGNED BY LOLA ORSS MD, MD ON 03/25/2020 AT 11:31 AM EST DISCLAIMER : THIS IS A VISIT SUMMARY EXTRACTED FROM THE [employer] CHART. IT IS NOT A COPY OF THE [employer] PROGRESS NOTE. CHRISTA
== END ==
LOC: M PAIN 08:30
PROVIDERS: ATTEND Anesthesiology
DX: M79.18 Myalgia, other site (principal); G47.33 Obstructive sleep apnea (adult) (pediatric); E11.9 Type 2 diabetes mellitus without complications; E55.9 Vitamin D deficiency, unspecified; Z86.59 Personal history of other mental and behavioral disorders; Z87.820 Personal history of traumatic brain injury; Z87.891 Personal history of nicotine dependence; E66.01 Morbid (severe) obesity due to excess calories; Z68.42 Body mass index [BMI] 45.0-49.9, adult; Z79.899 Other long term (current) drug therapy
CPT/HCPCS: 20552; J3301

== ENCOUNTER → 2020-04-05 | Outpatient (CLI) | payer OTHER, MEDICARE ==
[~2020-04-05] MED LIST changes: -BUPIVACAINE HCL 0.25% 10ML VIAL As Ordered ONE; -BUPIVACAINE HCL 0.25% 30ML VIAL As Ordered ONE; -TRIAMCINOLONE ACETONIDE SUSP 40 MG/ML VIAL (J3301) As Ordered ONE
--- NOTE | 2020-04-10 04:44 | ECWPNPC ---
PATIENT NAME: DULCE WYNNE : 1965 GENDER: MALE VISIT DATE: 04/05/2020 DISCHARGE DATE: 04/05/20 1035 VISIT LOCKED DATE TIME: PHYSICIAN: KASSIDY JIM PHYSICIAN PAGER NO: ACTIVE RESOURCE: KASSIDY JIM REASON FOR APPOINTMENT 1. POST TRIGGER POINT INJECTION RIGHT UPPER AND MID BACK, RIGHT SHOULDER HISTORY OF PRESENT ILLNESS GENERAL: HERE FOR POST PROCEDURE FOLLOW-UP. HEAD TRIGGER POINT INJECTIONS RIGHT UPPER BACK AND SHOULDER. REPORTING MARKED REDUCTION IN PAIN POST PROCEDURE. REPORTING IMPROVED RANGE OF JOINT MOTION POST PROCEDURE.-. FALL RISK SCREENING: SCREENING :NO FALLS REPORTED IN THE LAST YEAR PAIN SCREENING: PATIENT HAS A COMPLAINT OF ACUTE OR CHRONIC PAIN :YES LOCATION OF PAIN:RIGHT SHOULDER, UPPER BACK INTENSITY OF PAIN (SCALE OF 1 TO 10):0 WHAT DOES YOUR PAIN FEEL LIKE:SHARP, THROBBING DURATION:INTERMITTENT PAIN IS INCREASED BY:ACTIVITIES PAIN IS DECREASED BY:OTHERS TRIGGER POINT INJECTIONS HELPED TREMENDOUSLY, HEATING PAD, PERCOCET NURSING NOTE: -. PAIN CENTER INTAKE QUESTIONS: DO YOU HAVE A HISTORY OF MRSA? :NO DO YOU TAKE A BLOOD THINNERS? :NO DO YOU HAVE ANY BLEEDING DISORDERS? :NO ANY NEW NUMBNESS OR WEAKNESS IN YOUR LEGS OR ARMS? :NO ANY PACEMAKER,DEFIBRILLATOR, OR DORSAL COLUMN STIMULATOR? :NO DO YOU HAVE ANY RASHES OR OPEN SORES? :NO ARE YOU ALLERGIC TO IV DYE? :NO ARE YOU DIABETIC? :NO ANY NEW PROBLEMS WITH YOUR MEDICATIONS? :NO HAVE YOU RECEIVED A VACCINE IN THE PAST 30 DAYS? :NO DO YOU PLAN TO RECEIVE A VACCINE IN THE NEXT 21 DAYS? :YES IF SO WHAT VACCINE AND WHEN? WILL BE RECEIVING SECOND VACCINATION FOR SHINGLES DO YOU NEED ANY PRESCRIPTION? :YES PERCOCET DO YOU TAKE ANY IMMUNOSUPPRESSIVE MEDICATIONS? :NO IS THERE A CHANCE YOU COULD BE ? :NO ARE YOU BREAST FEEDING? :NO CURRENT MEDICATIONS TAKING FISH OIL 1000 MG CAPSULE 2 CAPSULES ORALLY BEFORE BEDTIME TAKING ZONISAMIDE 100 MG CAPSULE 2 CAPSULES ORALLY AT BEDTIME TAKING SUMATRIPTAN SUCCINATE 100 MG TABLET 1 TABLET NEEDED ORALLY NEEDED TAKING MAGNESIUM 500 MG TABLET 1 TAB ORALLY DAILY TAKING VITAMIN B12 1000 MCG TABLET EXTENDED RELEASE 1 TABLET ORALLY ONCE A DAY TAKING REFRESH EYE ITCH RELIEF TAKING REFRESH LIQUIGEL 1 % SOLUTION 1 DROP INTO AFFECTED EYE NEEDED OPHTHALMIC THREE TIMES A DAY TAKING THERATEARS 0.25 % SOLUTION DIRECTED OPHTHALMIC TAKING PRESERVISION/LUTEIN - CAPSULE DIRECTED ORALLY 2 CAPS DAILY TAKING MOBIC 15 MG TAKE ONE TABLET BY MOUTH EVERY DAY TAKING ATORVASTATIN CALCIUM 80 MG TABLET 1 TABLET ORALLY ONCE A DAY TAKING PERCOCET 5-325 MG TABLET 1 TABLET NEEDED ORALLY ( ORTHO ) EVERY 6 HRS PRN PAIN MDD4, NOTES: BEEN OVER A YEAR TAKING LISINOPRIL-HYDROCHLOROTHIAZIDE 20-12.5 MG TABLET 1 TABLET ORALLY ONCE A DAY, NOTES: LAST03/21/2020 0800 TAKING D3-50 1.25 MG (61010 UT) CAPSULE TAKE 1 CAPSULE BY MOUTH ONCE A WEEK TAKING PAXIL 40 MG TABLET 1 TABLET IN THE MORNING ORALLY ONCE A DAY TAKING FENOFIBRATE 145 MG TABLET 1 TABLET WITH FOOD ORALLY ONCE A DAY TAKING ATROPINE SULFATE 1 % SOLUTION 1 APPLICATION INTO THE LOWER EYELID OF AFFECTED EYE OPHTHALMIC BID NOT-TAKING PRED FORTE 1 % SUSPENSION 1 DROPS INTO L EYE OPHTHALMIC THREE TIMES DAILY NOT-TAKING VITAMIN D3 74923 UNITS CAPSULE 1 CAPSULE ORALLY ONCE A WEEK MEDICATION LIST REVIEWED AND RECONCILED WITH THE PATIENT PAST MEDICAL HISTORY HYPERTENSION HYPERLIPIDEMIA DEPRESSION/ANXIETY TBI - MAULED BY YAZMIN 11/13, [facility] NO OVERNIGHT STAY DM2 03/2019 MORBID OBESITY VIT D DEF ANEMIA, FE DEF - IMPROVED CHR B KNEE PAIN - NCOG KIERA, NONCOMPLIANT WITH CPAP CHR B KNEE PAIN CHR LOW BACK PAIN ALLERGIES N.K.D.A. SOCIAL HISTORY GENERAL: TOBACCO USE ARE YOU A:FORMER SMOKER ADDITIONAL FINDINGS: TOBACCO USERSNUFF USER USES VERY RARELY SMOKING CESSATION INFORMATION GIVEN02/16/2020 LATEX QUESTIONNAIRE LATEX ALLERGY : HAVE YOU EVER DEVELOPED ANY TYPE OF REACTION AFTER HANDLING LATEX PRODUCTS SUCH RUBBER GLOVES, CONDOMS, DIAPHRAGMS, BALLOONS, SOCKS, OR UNDERWEAR?NO LATEX ALLERGY : HAVE YOU EVER DEVELOPED ANY TYPE OF REACTION DURING OR AFTER DENTAL APPOINTMENT, VAGINAL/RECTAL EXAMINATION, SURGICAL PROCEDURE, OR ANY OTHER EXPOSURE?NO LATEX RISK : HAVE YOU EVER HAD ANY DIFFICULTY BREATHING OR HIVES AFTER EATING OR HANDLING ANY FRUITS, OR VEGETABLES; SUCH KIWI, BANANAS, STONE FRUITS, OR CHESTNUTSNO LATEX RISK : DO YOU HAVE A PREVIOUS PERSONAL HISTORY OF MORE THAN NINE SURGERIES, SPINA BIFIDA, OR REPEATED CATHERIZATIONS? NO LATEX RISK : ARE YOU FREQUENTLY EXPOSED TO LATEX PRODUCTS IN YOUR OCCUPATION?NO DATE ASKED : 04/05/2020 ALCOHOL USE: NO. LUNG CANCER SCREENING SMOKING STATUS:FORMER SMOKER BMI CARE GOAL FOLLOW-UP ABOVE NORMAL BMI FOLLOW-UPFEEDING REGIME, WEIGHT MONITORING ALCOHOL SCREENING DID YOU HAVE A DRINK CONTAINING ALCOHOL IN THE PAST YEAR?NO POINTS0 INTERPRETATIONNEGATIVE RECREATIONAL DRUG USE DRUG USE?NO CAFFEINE CAFFEINE USE?YES HOW OFTEN AND HOW MUCH? 1-2 CUPS DAILY SEXUAL HX HAD SEX IN THE LAST 12 MONTHS (VAGINAL, ORAL, OR ANAL)?: NO, HAVE YOU EVER HAD AN STD?: NO. HIV / HEP-C SCREENING HIV TEST OFFERED TO PATIENT:YES DATE OFFERED:11/16/2018 TEST ACCEPTED:NO HEP-C TEST OFFERED TO PATIENT:YES DATE OFFERED:11/16/2018 REASON:PATIENT DECLINED TEST ACCEPTED:NO REASON:PATIENT DECLINED BROCHURE PROVIDED TO PATIENTNO BUDDHISM [id number] CHRISTIAN NO CATHOLIC BELIEFS THAT WOULD IMPACT HEALTH CARE. LANGUAGE LANGUAGES SPOKEN:[employer] DIPLOMA. 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 DIET: REGULAR. EXERCISE: NO REGULAR EXERCISE. - PFS REFERRAL NEEDED?NO CLERGY REFERRAL NEEDED?NO PUBLIC HEALTH REFERRAL NEEDED?NO WAS THE PROVIDER NOTIFIED OF ANY PERTINENT INFO? N/A HAS THE PATIENT BEEN EDUCATED REGARDING HIS/HER PLAN OF CARE?YES HAS THE PATIENT BEEN EDUCATED REGARDING PAIN, THE RISK FOR PAIN, THE IMPORTANCE OF EFFECTIVE PAIN MANAGEMENT, AND THE PAIN ASSESSMENT PROCESS?YES HOUSING: LIVES WITH MOTHER. ADVANCE DIRECTIVE ADVANCE DIRECTIVE DISCUSSED WITH PATIENT:YES DOES HAVE HEALTH CARE PROXY DIANNA HERNANDEZ REVIEW OF SYSTEMS CONSTITUTIONAL: ANY RECENT FEVER NO . CHILLS NO . WEIGHT CHANGE OF UNKNOWN REASONS NO . GASTROENTEROLOGY: NEW UNEXPLAINABLE CHANGES IN BOWEL CONTROL NO . CONSTIPATION NO . GENITOURINARY: ANY NEW CHANGE IN BLADDER CONTROL? NO . NEUROLOGY: NEW ONSET DIZZINESS OR NEUROLOGICAL CHANGES NOT MENTIONED NO . NEW NUMBNESS OR PAIN PATTERNS NOT MENTIONED AND PERTINENT TO TODAY'S VISIT NO . CARDIOLOGY: NEW CHEST PRESSURE NO . NEW CHEST PAIN NO . RESPIRATORY: UNEXPLAINABLE COUGH NO . NEW SHORTNESS OF BREATH NO . VITAL SIGNS WT 335.8 LBS, HT 70 IN, BMI 48.18 INDEX, BP 174/106 MM HG, REPEAT BP 178/104 MM HG, HR 79 /MIN, RR 18 /MIN, TEMP 98.8 F, OXYGEN SAT % 95%, SAFE IN ENV? (Y/N) YES, REVIEWED BY: JH178/104 BP RETAKEN MANUAL. PROVIDED NOTIFIED OF BP. CRUZ AC MA. EXAMINATION GENERAL EXAMINATION: GENERALAWAKE,ALERT ,PLEASANT . PSYCHAFFECT NORMAL . LUNGS:LUNG EL ARE CLEAR TO AUSCULTATION BILATERALLY. GOOD MOVEMENT OF AIR . HEART:S1, S2 IN A REGULAR RATE AND RHYTHM. NO SIGNIFICANT MURMURS, RUBS OR GALLOPS NOTED . ASSESSMENTS OTHER CHRONIC PAIN - G89.29 (PRIMARY) TREATMENT OTHER CHRONIC PAIN PAIN PROCEDURE LOGDATE OF PROCEDURE03/22/20PROCEDURE:TRIGGER POINT INJECTIONS RIGHT THORACIC AND RIGHT SHOULDERAMOUNT OF PRE SEDATENONERESULT:MARKED REDUCTION IN PAIN WITH SIGNIFICANT IMPROVEMENT IN RANGE OF JOINT MOTION OF THE RIGHT ARM THIS PROCEDURE WAS REVIEWED BY KASSIDY ROMANO ON 04/09/2020 AT 17:28 PM EST PROCEDURE CODES FA211 ESTABILISHED PATIENT [facility] CHARGE DISPOSITION & COMMUNICATION FOLLOW UP 3 MONTHS (REASON: RIGHT SHOULDER PAIN) ELECTRONICALLY SIGNED BY ROSALINA MEZA ON 04/09/2020 AT 08:35 AM EST DISCLAIMER : THIS IS A VISIT SUMMARY EXTRACTED FROM THE [employer] CHART. IT IS NOT A COPY OF THE [employer] PROGRESS NOTE. CHRISTA
== END ==
LOC: M PAIN 10:00
PROVIDERS: ATTEND Nurse Practitioner Family
DX: G89.29 Other chronic pain (principal); E11.9 Type 2 diabetes mellitus without complications; E55.9 Vitamin D deficiency, unspecified; G47.33 Obstructive sleep apnea (adult) (pediatric); F17.220 Nicotine dependence, chewing tobacco, uncomplicated; Z86.59 Personal history of other mental and behavioral disorders; Z87.820 Personal history of traumatic brain injury; E66.01 Morbid (severe) obesity due to excess calories; Z68.42 Body mass index [BMI] 45.0-49.9, adult; Z79.899 Other long term (current) drug therapy

== ENCOUNTER → 2020-06-20 | Outpatient (CLI) | payer OTHER, MEDICARE ==
--- NOTE | 2020-06-21 05:12 | ECWPNPC ---
PATIENT NAME: DULCE WYNNE : 1965 GENDER: MALE VISIT DATE: 06/20/2020 DISCHARGE DATE: 06/20/20 1018 VISIT LOCKED DATE TIME: PHYSICIAN: KASSIDY JIM PHYSICIAN PAGER NO: ACTIVE RESOURCE: KASSIDY JIM REASON FOR APPOINTMENT 1. RIGHT SHOULDER PAIN HISTORY OF PRESENT ILLNESS GENERAL: HERE FOR FOLLOW-UP OF CHRONIC RIGHT SHOULDER PAIN. THIS IS A WORK RELATED INJURY. CONTINUES TO HAVE SEVERE RIGHT SHOULDER PAIN ESPECIALLY WITH RANGE OF JOINT MOTION OF RIGHT ARM/SHOULDER. HAS RESPONDED WELL TO TRIGGER POINT INJECTIONS IN THIS AREA IN THE PAST. IT NOT ONLY HELPED DECREASE PAIN, IT IMPROVED HIS ABILITY TO USE HIS RIGHT ARM WITH LESS PAIN. CURRENTLY USING OXYCODONE 5/325 SPARINGLY FOR SEVERE PAIN EPISODES. DENIES ADVERSE EFFECTS OF MEDICATION. TODAY HE IS HAVING AN EXACERBATION OF HIS CHRONIC RIGHT HEAD PAIN STATUS POST HEAD INJURY. HE FORGOT TO TAKE HIS BLOOD PRESSURE MEDICATION THIS MORNING AND HIS BLOOD PRESSURE IS ELEVATED. DENIES CHEST PAINS OR SHORTNESS OF BREATH. ALSO COMPLAINING OF EPISODES OF DIZZINESS WHICH IS A CHRONIC ISSUE FOR HIM BUT SEEMS TO BE WORSE TODAY. HE IS ADVISED TO GO TO THE EMERGENCY ROOM OR URGENT CARE SHOULD HIS SYMPTOMS PERSIST DESPITE TAKING HIS MEDICATIONS. HE IS ADVISED NOT TO DRIVE. -. FALL RISK SCREENING: SCREENING : NO FALLS REPORTED IN THE LAST YEAR. PAIN SCREENING: PATIENT HAS A COMPLAINT OF ACUTE OR CHRONIC PAIN :YES LOCATION OF PAIN:UPPER BACK INTENSITY OF PAIN (SCALE OF 1 TO 10):8 WHAT DOES YOUR PAIN FEEL LIKE:ACHING, BURNING, CONTINOUS, SHARP, STABBING, TENDER, SHOOTING DURATION:CONTINOUS, AWAKENS FROM SLEEP PAIN IS INCREASED BY:ACTIVITIES, PROLONGED STANDING PAIN IS DECREASED BY:USE OF PAIN MEDICATIONS, SITTING, OTHERS REPOSITIONING.HEAT, ICE, PAIN MEDS NURSING NOTE: -. PAIN CENTER INTAKE QUESTIONS: DO YOU HAVE A HISTORY OF MRSA? :NO DO YOU TAKE A BLOOD THINNERS? :NO DO YOU HAVE ANY BLEEDING DISORDERS? :NO ANY NEW NUMBNESS OR WEAKNESS IN YOUR LEGS OR ARMS? :NO ANY PACEMAKER,DEFIBRILLATOR, OR DORSAL COLUMN STIMULATOR? :NO DO YOU HAVE ANY RASHES OR OPEN SORES? :NO ARE YOU ALLERGIC TO IV DYE? :NO ARE YOU DIABETIC? :NO ANY NEW PROBLEMS WITH YOUR MEDICATIONS? :NO HAVE YOU RECEIVED A VACCINE IN THE PAST 30 DAYS? :YES IF SO WHAT VACCINE AND WHEN? SECOND COVID VACCINATION 06/07/2020. DO YOU PLAN TO RECEIVE A VACCINE IN THE NEXT 21 DAYS? :NO DO YOU NEED ANY PRESCRIPTION? :YES OXYCODONE-ACETAMINOPHEN 5-325 DO YOU TAKE ANY IMMUNOSUPPRESSIVE MEDICATIONS? :NO IS THERE A CHANCE YOU COULD BE ? :NO ARE YOU BREAST FEEDING? :NO CURRENT MEDICATIONS TAKING FISH OIL 1000 MG CAPSULE 2 CAPSULES ORALLY BEFORE BEDTIME TAKING ZONISAMIDE 100 MG CAPSULE 2 CAPSULES ORALLY AT BEDTIME TAKING SUMATRIPTAN SUCCINATE 100 MG TABLET 1 TABLET NEEDED ORALLY NEEDED TAKING MAGNESIUM 500 MG TABLET 1 TAB ORALLY DAILY TAKING VITAMIN B12 1000 MCG TABLET EXTENDED RELEASE 1 TABLET ORALLY ONCE A DAY TAKING REFRESH EYE ITCH RELIEF TAKING REFRESH LIQUIGEL 1 % SOLUTION 1 DROP INTO AFFECTED EYE NEEDED OPHTHALMIC THREE TIMES A DAY TAKING THERATEARS 0.25 % SOLUTION DIRECTED OPHTHALMIC TAKING PRESERVISION/LUTEIN - CAPSULE DIRECTED ORALLY 2 CAPS DAILY TAKING MOBIC 15 MG TAKE ONE TABLET BY MOUTH EVERY DAY TAKING PERCOCET 5-325 MG TABLET 1 TABLET NEEDED ORALLY ( ORTHO ) EVERY 6 HRS PRN PAIN MDD4, NOTES: BEEN OVER A YEAR TAKING LISINOPRIL-HYDROCHLOROTHIAZIDE 20-12.5 MG TABLET 1 TABLET ORALLY ONCE A DAY, NOTES: LAST03/21/2020 0800 TAKING D3-50 1.25 MG (23943 UT) CAPSULE TAKE 1 CAPSULE BY MOUTH ONCE A WEEK TAKING PAXIL 40 MG TABLET 1 TABLET IN THE MORNING ORALLY ONCE A DAY TAKING FENOFIBRATE 145 MG TABLET 1 TABLET WITH FOOD ORALLY ONCE A DAY TAKING ATORVASTATIN CALCIUM 80 MG TABLET 1 TABLET ORALLY ONCE A DAY TAKING MELOXICAM 15 MG TABLET TAKE ONE TABLET BY MOUTH EVERY DAY NOT-TAKING ATROPINE SULFATE 1 % SOLUTION 1 APPLICATION INTO THE LOWER EYELID OF AFFECTED EYE OPHTHALMIC BID UNKNOWN PRED FORTE 1 % SUSPENSION 1 DROPS INTO L EYE OPHTHALMIC THREE TIMES DAILY UNKNOWN VITAMIN D3 83715 UNITS CAPSULE 1 CAPSULE ORALLY ONCE A WEEK MEDICATION LIST REVIEWED AND RECONCILED WITH THE PATIENT PAST MEDICAL HISTORY HYPERTENSION HYPERLIPIDEMIA DEPRESSION/ANXIETY TBI - MAULED BY YAZMIN 11/13, [facility] [place] [facility] NO OVERNIGHT STAY DM2 03/2019 MORBID OBESITY VIT D DEF ANEMIA, FE DEF - IMPROVED CHR B KNEE PAIN - NCOG KIERA, NONCOMPLIANT WITH CPAP CHR B KNEE PAIN CHR LOW BACK PAIN ALLERGIES N.K.D.A. SOCIAL HISTORY GENERAL: TOBACCO USE ARE YOU A:FORMER SMOKER ADDITIONAL FINDINGS: TOBACCO USERSNUFF USER USES VERY RARELY SMOKING CESSATION INFORMATION GIVEN02/16/2020 LATEX QUESTIONNAIRE LATEX ALLERGY : HAVE YOU EVER DEVELOPED ANY TYPE OF REACTION AFTER HANDLING LATEX PRODUCTS SUCH RUBBER GLOVES, CONDOMS, DIAPHRAGMS, BALLOONS, SOCKS, OR UNDERWEAR?NO LATEX ALLERGY : HAVE YOU EVER DEVELOPED ANY TYPE OF REACTION DURING OR AFTER DENTAL APPOINTMENT, VAGINAL/RECTAL EXAMINATION, SURGICAL PROCEDURE, OR ANY OTHER EXPOSURE?NO LATEX RISK : HAVE YOU EVER HAD ANY DIFFICULTY BREATHING OR HIVES AFTER EATING OR HANDLING ANY FRUITS, OR VEGETABLES; SUCH KIWI, BANANAS, STONE FRUITS, OR CHESTNUTSNO LATEX RISK : DO YOU HAVE A PREVIOUS PERSONAL HISTORY OF MORE THAN NINE SURGERIES, SPINA BIFIDA, OR REPEATED CATHERIZATIONS? NO LATEX RISK : ARE YOU FREQUENTLY EXPOSED TO LATEX PRODUCTS IN YOUR OCCUPATION?NO DATE ASKED : 06/20/2020 ALCOHOL USE: NO. LUNG CANCER SCREENING SMOKING STATUS:FORMER SMOKER BMI CARE GOAL FOLLOW-UP ABOVE NORMAL BMI FOLLOW-UPFEEDING REGIME, WEIGHT MONITORING ALCOHOL SCREENING DID YOU HAVE A DRINK CONTAINING ALCOHOL IN THE PAST YEAR?NO POINTS0 INTERPRETATIONNEGATIVE RECREATIONAL DRUG USE DRUG USE?NO CAFFEINE CAFFEINE USE?YES HOW OFTEN AND HOW MUCH? 1-2 CUPS DAILY SEXUAL HX HAD SEX IN THE LAST 12 MONTHS (VAGINAL, ORAL, OR ANAL)?: NO, HAVE YOU EVER HAD AN STD?: NO. HIV / HEP-C SCREENING HIV TEST OFFERED TO PATIENT:YES DATE OFFERED:11/16/2018 TEST ACCEPTED:NO HEP-C TEST OFFERED TO PATIENT:YES DATE OFFERED:11/16/2018 REASON:PATIENT DECLINED TEST ACCEPTED:NO REASON:PATIENT DECLINED BROCHURE PROVIDED TO PATIENTNO EPISCOPAL [id number] JAIN NO SPIRITISM BELIEFS THAT WOULD IMPACT HEALTH CARE. LANGUAGE LANGUAGES SPOKEN:[employer] DIPLOMA. 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 DIET: REGULAR. EXERCISE: NO REGULAR EXERCISE. - PFS REFERRAL NEEDED?NO CLERGY REFERRAL NEEDED?NO PUBLIC HEALTH REFERRAL NEEDED?NO WAS THE PROVIDER NOTIFIED OF ANY PERTINENT INFO? N/A HAS THE PATIENT BEEN EDUCATED REGARDING HIS/HER PLAN OF CARE?YES HAS THE PATIENT BEEN EDUCATED REGARDING PAIN, THE RISK FOR PAIN, THE IMPORTANCE OF EFFECTIVE PAIN MANAGEMENT, AND THE PAIN ASSESSMENT PROCESS?YES HOUSING: LIVES WITH MOTHER. ADVANCE DIRECTIVE ADVANCE DIRECTIVE DISCUSSED WITH PATIENT:YES DOES HAVE HEALTH CARE PROXY DIANNA HERNANDEZ REVIEW OF SYSTEMS CONSTITUTIONAL: ANY RECENT FEVER NO . CHILLS NO . WEIGHT CHANGE OF UNKNOWN REASONS NO . GASTROENTEROLOGY: NEW UNEXPLAINABLE CHANGES IN BOWEL CONTROL NO . CONSTIPATION NO . GENITOURINARY: ANY NEW CHANGE IN BLADDER CONTROL? NO . NEUROLOGY: NEW ONSET DIZZINESS OR NEUROLOGICAL CHANGES NOT MENTIONED NO . NEW NUMBNESS OR PAIN PATTERNS NOT MENTIONED AND PERTINENT TO TODAY'S VISIT NO . CARDIOLOGY: NEW CHEST PRESSURE NO . PATIENT DENIES NO . RESPIRATORY: UNEXPLAINABLE COUGH NO . NEW SHORTNESS OF BREATH NO . VITAL SIGNS WT 340.0 LBS, HT 70 IN, BMI 48.78 INDEX, BP 165/103 MM HG, REPEAT BP 172/108 MANUAL BP, HR 95 /MIN, RR 18 /MIN, TEMP 96.0 F, OXYGEN SAT % 90%, SAFE IN ENV? (Y/N) YES, NA INITIALS AW 0928, REVIEWED BY: [facility] NURSE KNOW ABOUT PT VITALSMANUAL BP 172/108. OXYGEN 97% RECHECK. ENVIRONMENTAL PROTECTION OFFICER NOTIFIED. CRUZ AC MA. EXAMINATION GENERAL EXAMINATION: GENERAL ALERT,APPEARS UNCOMFORTABLE . PSYCHAPPROPRIATE MOOD AND AFFECT . NECK:NO LYMPHADENOPATHY, SUPPLE. LUNGS:CLEAR TO AUSCULTATION BILATERALLY, NO WHEEZES, RHONCHI, RALES. HEART:NO MURMURS, REGULAR RATE AND RHYTHM. MUSCULOSKELETAL: TRIGGER POINTS: RIGHT SHOULDER: THICK BANDS OF TISSUE THAT IS TENDER TO TOUCH.ROJM OF RIGHT SHOULDER AGGREVATES THESES AREAS.. ASSESSMENTS MYALGIA, OTHER SITE - M79.18 (PRIMARY) PAIN IN RIGHT SHOULDER - M25.511 TREATMENT MYALGIA, OTHER SITE REFILL PERCOCET TABLET, 5-325 MG, 1 TABLET NEEDED, ORALLY ( ORTHO ), EVERY 6 HRS PRN PAIN MDD4, 7 DAY(S), 28, REFILLS 0, NOTES: BEEN OVER A YEAR NOTES: WORKMEN'S COMP REQUEST TRIGGER POINT INJECTIONS RIGHT SHOULDER. PROCEDURES PN WORKMANS' COMP OPINION IN YOUR OPINION, WAS THE INCIDENT THAT THE PATIENT DESCRIBED THE COMPETENT MEDICAL CAUSE OF THIS INJURY/ILLNESS? YES ARE THE PATIENT'S COMPLAINTS CONSISTENT WITH HIS/HER HISTORY OF THE INJURY/ILLNESS? YES IS THE PATIENT'S HISTORY OF THE INJURY/ILLNESS CONSISTENT WITH YOUR OBJECTIVE FINDING? YES WHAT IS THE PERCENTAGE OF TEMPORARY IMPAIRMENT? MODERATE TO MARKED = 66.7% IS THE PATIENT WORKING? NO DOCTOR ON SITE: LOLA PRO MD PROCEDURE CODES FA211 ESTABILISHED PATIENT [facility] CHARGE DISPOSITION & COMMUNICATION FOLLOW UP POST PROCEDURE AND 2 MONTHS MEDICATION MANAGEMENT WITH KASSIDY (REASON: WORKMEN'S COMP REQUEST TRIGGER POINT INJECTIONS RIGHT SHOULDER) ELECTRONICALLY SIGNED BY ROSALINA MEZA ON 06/20/2020 AT 03:11 PM EDT DISCLAIMER : THIS IS A VISIT SUMMARY EXTRACTED FROM THE [email or web address] CHART. IT IS NOT A COPY OF THE [email or web address] PROGRESS NOTE. CHRISTA
== END ==
LOC: M PAIN 09:15
PROVIDERS: ATTEND Nurse Practitioner Family
DX: M79.18 Myalgia, other site (principal); M25.511 Pain in right shoulder; E55.9 Vitamin D deficiency, unspecified; G47.33 Obstructive sleep apnea (adult) (pediatric); F17.220 Nicotine dependence, chewing tobacco, uncomplicated; Z87.820 Personal history of traumatic brain injury; Z86.59 Personal history of other mental and behavioral disorders; E66.01 Morbid (severe) obesity due to excess calories; Z68.42 Body mass index [BMI] 45.0-49.9, adult; Z79.899 Other long term (current) drug therapy

== ENCOUNTER → 2020-07-24 | Outpatient (CLI) | payer OTHER, MEDICARE ==
[~2020-07-24] MED LIST changes: +PERC2.5T PO
--- NOTE | 2020-07-24 23:12 | ECWPNPC ---
PATIENT NAME: DULCE WYNNE : 1965 GENDER: MALE VISIT DATE: 07/24/2020 DISCHARGE DATE: 07/24/20 1032 VISIT LOCKED DATE TIME: PHYSICIAN: KASSIDY JIM PHYSICIAN PAGER NO: ACTIVE RESOURCE: KASSIDY JIM REASON FOR APPOINTMENT 1. REQUEST TRIGGER POINT INJECTIONS HISTORY OF PRESENT ILLNESS GENERAL: HERE FOR FOLLOW-UP OF PERSISTENT RIGHT SHOULDER PAIN WITH A HISTORY OF A WORK-RELATED TRAUMATIC INJURY. CONTINUES WITH SEVERE RIGHT SHOULDER PAIN. PAIN IS AGGRAVATED WITH RANGE OF JOINT MOTION OF THE RIGHT ARM. IT IS DOCUMENTED IN MEDICAL RECORD AND REVIEWED BY ME TODAY THAT THE PATIENT HAD GREATER THAN 50% REDUCTION AND MARKED IMPROVEMENT IN RANGE OF JOINT MOTION OF THE RIGHT ARM AFTER TRIGGER POINT INJECTIONS DONE IN MARCH 2020. CONTINUES WITH USE OF PERCOCET 5/325 PERIODICALLY FOR SEVERE PAIN EPISODES. -. FALL RISK SCREENING: SCREENING : NO FALLS REPORTED IN THE LAST YEAR. PAIN SCREENING: PATIENT HAS A COMPLAINT OF ACUTE OR CHRONIC PAIN :YES LOCATION OF PAIN:RIGHT SHOULDER INTENSITY OF PAIN (SCALE OF 1 TO 10):9 WHAT DOES YOUR PAIN FEEL LIKE:ACHING, BURNING, SHARP, TENDER, THROBBING, SHOOTING DURATION:CONTINOUS, CONSTANT, ALL DAY, AWAKENS FROM SLEEP PAIN IS INCREASED BY:ACTIVITIES, PROLONGED STANDING PAIN IS DECREASED BY:USE OF PAIN MEDICATIONS NURSING NOTE: -. PAIN CENTER INTAKE QUESTIONS: DO YOU HAVE A HISTORY OF MRSA? :NO DO YOU TAKE A BLOOD THINNERS? :NO DO YOU HAVE ANY BLEEDING DISORDERS? :NO ANY NEW NUMBNESS OR WEAKNESS IN YOUR LEGS OR ARMS? :YES RIGHT ARM PAIN GOES DOWN INTO MIDDLE FINER AND TRIGGER FINGER NUMBNESS ANY PACEMAKER,DEFIBRILLATOR, OR DORSAL COLUMN STIMULATOR? :NO DO YOU HAVE ANY RASHES OR OPEN SORES? :NO ARE YOU ALLERGIC TO IV DYE? :NO ARE YOU DIABETIC? :NO ANY NEW PROBLEMS WITH YOUR MEDICATIONS? :NO HAVE YOU RECEIVED A VACCINE IN THE PAST 30 DAYS? :YES IF SO WHAT VACCINE AND WHEN? SECOND COVID VACCINATION 06/07/2020. DO YOU PLAN TO RECEIVE A VACCINE IN THE NEXT 21 DAYS? :NO DO YOU NEED ANY PRESCRIPTION? :YES OXYCODONE-ACETAMINOPHEN 5-325 DO YOU TAKE ANY IMMUNOSUPPRESSIVE MEDICATIONS? :NO IS THERE A CHANCE YOU COULD BE ? :NO ARE YOU BREAST FEEDING? :NO CURRENT MEDICATIONS TAKING FISH OIL 1000 MG CAPSULE 2 CAPSULES ORALLY BEFORE BEDTIME TAKING ZONISAMIDE 100 MG CAPSULE 2 CAPSULES ORALLY AT BEDTIME TAKING SUMATRIPTAN SUCCINATE 100 MG TABLET 1 TABLET NEEDED ORALLY NEEDED TAKING MAGNESIUM 500 MG TABLET 1 TAB ORALLY DAILY TAKING VITAMIN B12 1000 MCG TABLET EXTENDED RELEASE 1 TABLET ORALLY ONCE A DAY TAKING REFRESH EYE ITCH RELIEF TAKING REFRESH LIQUIGEL 1 % SOLUTION 1 DROP INTO AFFECTED EYE NEEDED OPHTHALMIC THREE TIMES A DAY TAKING THERATEARS 0.25 % SOLUTION DIRECTED OPHTHALMIC TAKING PRESERVISION/LUTEIN - CAPSULE DIRECTED ORALLY 2 CAPS DAILY TAKING FENOFIBRATE 145 MG TABLET 1 TABLET WITH FOOD ORALLY ONCE A DAY TAKING ATORVASTATIN CALCIUM 80 MG TABLET 1 TABLET ORALLY ONCE A DAY TAKING MELOXICAM 15 MG TABLET TAKE ONE TABLET BY MOUTH EVERY DAY TAKING PERCOCET 5-325 MG TABLET 1 TABLET NEEDED ORALLY ( ORTHO ) EVERY 6 HRS PRN PAIN MDD4, NOTES: BEEN OVER A YEAR TAKING LISINOPRIL-HYDROCHLOROTHIAZIDE 20-12.5 MG TABLET 1 TABLET ORALLY ONCE A DAY TAKING D3-50 1.25 MG (90921 UT) CAPSULE TAKE 1 CAPSULE BY MOUTH ONCE A WEEK TAKING PAXIL 40 MG TABLET 1 TABLET IN THE MORNING ORALLY ONCE A DAY NOT-TAKING MOBIC 15 MG TAKE ONE TABLET BY MOUTH EVERY DAY NOT-TAKING ATROPINE SULFATE 1 % SOLUTION 1 APPLICATION INTO THE LOWER EYELID OF AFFECTED EYE OPHTHALMIC BID UNKNOWN PRED FORTE 1 % SUSPENSION 1 DROPS INTO L EYE OPHTHALMIC THREE TIMES DAILY UNKNOWN VITAMIN D3 87133 UNITS CAPSULE 1 CAPSULE ORALLY ONCE A WEEK MEDICATION LIST REVIEWED AND RECONCILED WITH THE PATIENT PAST MEDICAL HISTORY HYPERTENSION HYPERLIPIDEMIA DEPRESSION/ANXIETY TBI - MAULED BY YAZMIN 11/13, [facility] NO OVERNIGHT STAY DM2 03/2019 MORBID OBESITY VIT D DEF ANEMIA, FE DEF - IMPROVED CHR B KNEE PAIN - NCOG KIERA, NONCOMPLIANT WITH CPAP CHR B KNEE PAIN CHR LOW BACK PAIN STAGE 3 BRAIN CANCER ALLERGIES N.K.D.A. SURGICAL HISTORY RIGHT KNEE ARTHROSCOPY LEFT EYE CORNEAL TRANSPLANT. 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 KNEE SURGERY-LEFT 11/2014 LEFT HAND SURGERY 06/2016 COLONOSCOPY- NEGATIVE 2016 RIGHT HAND SURGERY 2017 LEFT CATARACT REMOVAL WITH LENS IMPLANT 2014 LEFT CORNEA TRANSPLANT 05/2018 ARTHROSCOPY RIGHT KNEE, DR LACY NCOG 12/07/18 SOCIAL HISTORY GENERAL: TOBACCO USE ARE YOU A:FORMER SMOKER HOW LONG HAS IT BEEN SINCE YOU LAST SMOKED?> 10 YEARS ADDITIONAL FINDINGS: TOBACCO USERSNUFF USER USES VERY RARELY SMOKING CESSATION INFORMATION GIVEN02/16/2020 LATEX QUESTIONNAIRE LATEX ALLERGY : HAVE YOU EVER DEVELOPED ANY TYPE OF REACTION AFTER HANDLING LATEX PRODUCTS SUCH RUBBER GLOVES, CONDOMS, DIAPHRAGMS, BALLOONS, SOCKS, OR UNDERWEAR?NO LATEX ALLERGY : HAVE YOU EVER DEVELOPED ANY TYPE OF REACTION DURING OR AFTER DENTAL APPOINTMENT, VAGINAL/RECTAL EXAMINATION, SURGICAL PROCEDURE, OR ANY OTHER EXPOSURE?NO LATEX RISK : HAVE YOU EVER HAD ANY DIFFICULTY BREATHING OR HIVES AFTER EATING OR HANDLING ANY FRUITS, OR VEGETABLES; SUCH KIWI, BANANAS, STONE FRUITS, OR CHESTNUTSNO LATEX RISK : DO YOU HAVE A PREVIOUS PERSONAL HISTORY OF MORE THAN NINE SURGERIES, SPINA BIFIDA, OR REPEATED CATHERIZATIONS? NO LATEX RISK : ARE YOU FREQUENTLY EXPOSED TO LATEX PRODUCTS IN YOUR OCCUPATION?NO DATE ASKED : 07/24/2020 ALCOHOL USE: NO. LUNG CANCER SCREENING SMOKING STATUS:FORMER SMOKER BMI CARE GOAL FOLLOW-UP ABOVE NORMAL BMI FOLLOW-UPFEEDING REGIME, WEIGHT MONITORING ALCOHOL SCREENING DID YOU HAVE A DRINK CONTAINING ALCOHOL IN THE PAST YEAR?NO POINTS0 INTERPRETATIONNEGATIVE RECREATIONAL DRUG USE DRUG USE?NO CAFFEINE CAFFEINE USE?YES HOW OFTEN AND HOW MUCH? 1-2 CUPS DAILY SEXUAL HX HAD SEX IN THE LAST 12 MONTHS (VAGINAL, ORAL, OR ANAL)?: NO, HAVE YOU EVER HAD AN STD?: NO. HIV / HEP-C SCREENING HIV TEST OFFERED TO PATIENT:YES DATE OFFERED:11/16/2018 TEST ACCEPTED:NO HEP-C TEST OFFERED TO PATIENT:YES DATE OFFERED:11/16/2018 REASON:PATIENT DECLINED TEST ACCEPTED:NO REASON:PATIENT DECLINED BROCHURE PROVIDED TO PATIENTNO HOAHAOISM [id number] QUAKER NO SIKH BELIEFS THAT WOULD IMPACT HEALTH CARE. LANGUAGE LANGUAGES SPOKEN:[employer] DIPLOMA. 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 DIET: REGULAR. EXERCISE: NO REGULAR EXERCISE. - PFS REFERRAL NEEDED?NO CLERGY REFERRAL NEEDED?NO PUBLIC HEALTH REFERRAL NEEDED?NO WAS THE PROVIDER NOTIFIED OF ANY PERTINENT INFO? N/A HAS THE PATIENT BEEN EDUCATED REGARDING HIS/HER PLAN OF CARE?YES HAS THE PATIENT BEEN EDUCATED REGARDING PAIN, THE RISK FOR PAIN, THE IMPORTANCE OF EFFECTIVE PAIN MANAGEMENT, AND THE PAIN ASSESSMENT PROCESS?YES HOUSING: LIVES WITH MOTHER. ADVANCE DIRECTIVE ADVANCE DIRECTIVE DISCUSSED WITH PATIENT:YES DOES HAVE HEALTH CARE PROXY DIANNA HERNANDEZ HOSPITALIZATION/MAJOR DIAGNOSTIC PROCEDURE SURGERY REVIEW OF SYSTEMS CONSTITUTIONAL: ANY RECENT FEVER NO . CHILLS NO . WEIGHT CHANGE OF UNKNOWN REASONS NO . GASTROENTEROLOGY: NEW UNEXPLAINABLE CHANGES IN BOWEL CONTROL NO . CONSTIPATION NO . GENITOURINARY: ANY NEW CHANGE IN BLADDER CONTROL? NO . NEUROLOGY: NEW ONSET DIZZINESS OR NEUROLOGICAL CHANGES NOT MENTIONED NO . NEW NUMBNESS OR PAIN PATTERNS NOT MENTIONED AND PERTINENT TO TODAY'S VISIT NO . CARDIOLOGY: NEW CHEST PRESSURE NO . PATIENT DENIES NO . RESPIRATORY: UNEXPLAINABLE COUGH NO . NEW SHORTNESS OF BREATH NO . VITAL SIGNS WT 338.6 LBS, HT 70 IN, BMI 48.58 INDEX, BP 178/96 MM HG, HR 91 /MIN, RR 18 /MIN, TEMP 96.2 F, OXYGEN SAT % 96%, SAFE IN ENV? (Y/N) YES, NA INITIALS ME 09:52T.GUERDA SANCHEZ. EXAMINATION SHOULDER / UPPER ARM: SHOULDER: RIGHT: PALPATION ELICITS TENDERNESS OVER FRONT AND BACK OF SHOULDER ABDUCTION RIGHT SHOULDER LIMITED TO 75 WITH SEVERE PAIN NOTED AT THIS LEVEL. GENERAL EXAMINATION: GENERAL ALERT,APPEARS UNCOMFORTABLE . PSYCHAPPROPRIATE MOOD AND AFFECT . NECK:NO LYMPHADENOPATHY, SUPPLE. LUNGS:CLEAR TO AUSCULTATION BILATERALLY, NO WHEEZES, RHONCHI, RALES. HEART:NO MURMURS, REGULAR RATE AND RHYTHM. MUSCULOSKELETAL:TRIGGER POINTS: RIGHT SHOULDER: THICK BANDS OF TISSUE THAT IS TENDER TO TOUCH.ROJM OF RIGHT SHOULDER AGGREVATES PAIN IN THIS REGION.. ASSESSMENTS MYALGIA, OTHER SITE - M79.18 (PRIMARY) PAIN IN RIGHT SHOULDER - M25.511 TREATMENT MYALGIA, OTHER SITE REFILL PERCOCET TABLET, 5-325 MG, 1 TABLET NEEDED, ORALLY, Q8H PRN FOR SEVERE PAIN EPISODES RIGHT SHOULDER MDD3, 30 DAYS, 45, REFILLS 0, NOTES: BEEN OVER A YEAR NOTES: TRIGGER POINT INJECTIONS RIGHT SHOULDER TREATMENT GOAL FOR TRIGGER POINT INJECTIONS IS TO REDUCE PAIN > THAN 50% POST PROCEDURE AND HAVE INCREASED ROJM OF RIGHT SHOULDER FROM 75 DEGREES ABDUCTION TO 100 DEGREES OR GREATER.WE WILL EVALUATE EFFECTIVENESS WITH MEASUREMENTS AT OFFICE VISIT POST PROCEDURE AND MONTHLY AFTER THAT NEEDED. PRINTED AND REVIEWED PRE PROCEDURE INFORMATION, PATIENT VERBALIZED UNDERSTANDING ARUNA SANCHEZ. PROCEDURES PN WORKMANS' COMP OPINION IN YOUR OPINION, WAS THE INCIDENT THAT THE PATIENT DESCRIBED THE COMPETENT MEDICAL CAUSE OF THIS INJURY/ILLNESS? YES ARE THE PATIENT'S COMPLAINTS CONSISTENT WITH HIS/HER HISTORY OF THE INJURY/ILLNESS? YES IS THE PATIENT'S HISTORY OF THE INJURY/ILLNESS CONSISTENT WITH YOUR OBJECTIVE FINDING? YES WHAT IS THE PERCENTAGE OF TEMPORARY IMPAIRMENT? MODERATE TO MARKED = 66.7% IS THE PATIENT WORKING? NO DOCTOR ON SITE: LOLA PRO MD PROCEDURE CODES FA211 ESTABILISHED PATIENT [facility] CHARGE DISPOSITION & COMMUNICATION FOLLOW UP 2-3 WEEKS POST/WORKMANS COMP RIGHT SHOULDER (REASON: TRIGGER POINT INJECTIONS RIGHT SHOULDER, RIGHT NECK, RIGHT THORACIC) ELECTRONICALLY SIGNED BY ROSALINA MEZA ON 07/24/2020 AT 03:54 PM EDT DISCLAIMER : THIS IS A VISIT SUMMARY EXTRACTED FROM THE [employer] CHART. IT IS NOT A COPY OF THE [employer] PROGRESS NOTE. CHRISTA
== END ==
LOC: M PAIN 09:30
PROVIDERS: ATTEND Nurse Practitioner Family
DX: M79.18 Myalgia, other site (principal); M25.511 Pain in right shoulder; E55.9 Vitamin D deficiency, unspecified; G47.33 Obstructive sleep apnea (adult) (pediatric); Z86.59 Personal history of other mental and behavioral disorders; Z87.820 Personal history of traumatic brain injury; Z87.891 Personal history of nicotine dependence; E66.01 Morbid (severe) obesity due to excess calories; Z68.42 Body mass index [BMI] 45.0-49.9, adult; Z79.899 Other long term (current) drug therapy

== ENCOUNTER → 2020-08-04 | Outpatient (CLI) | payer OTHER, MEDICARE | LOC: M LABSMTC 09:33 | PROVIDERS: ATTEND Anesthesiology | DX: Z20.822 Contact with and (suspected) exposure to COVID-19 (principal) ==

== ENCOUNTER → 2020-08-09 | Outpatient (CLI) | payer OTHER, MEDICARE ==
[~2020-08-09] MED LIST changes: +BUPIVACAINE HCL 0.25% 10ML VIAL As Ordered ONE; +BUPIVACAINE HCL 0.25% 30ML VIAL As Ordered ONE; +TRIAMCINOLONE ACETONIDE SUSP 40 MG/ML VIAL (J3301) As Ordered ONE; +diazePAM 5MG TABLET As Ordered ONE; +oxyCODONE 5MG TAB As Ordered ONE
--- NOTE | 2020-08-15 01:35 | ECWPNPC ---
PATIENT NAME: DULCE WYNNE : 1965 GENDER: MALE VISIT DATE: 08/09/2020 DISCHARGE DATE: 08/09/20 1042 VISIT LOCKED DATE TIME: PHYSICIAN: LOLA ROSS MD PHYSICIAN PAGER NO: ACTIVE RESOURCE: LOLA ROSS MD REASON FOR APPOINTMENT 1. TRIGGER POINT INJECTIONS TO RIGHT SHOULDER HISTORY OF PRESENT ILLNESS GENERAL: -. FALL RISK SCREENING: SCREENING : NO FALLS REPORTED IN THE LAST YEAR. PAIN SCREENING: PATIENT HAS A COMPLAINT OF ACUTE OR CHRONIC PAIN :YES LOCATION OF PAIN:RIGHT SHOULDER RIGHT SHOULDER AREA INTENSITY OF PAIN (SCALE OF 1 TO 10):8 WHAT DOES YOUR PAIN FEEL LIKE:ACHING, BURNING, CONTINOUS, SHARP, STABBING DURATION:CONTINOUS, AWAKENS FROM SLEEP PAIN IS INCREASED BY:ACTIVITIES ACTIVITES, RAISING ARM ABOVE HIS HEAD PAIN IS DECREASED BY:OTHERS NOTHING REALLY HELPS RIGHT NOW NURSING NOTE: -. PAIN CENTER INTAKE QUESTIONS: DO YOU HAVE A HISTORY OF MRSA? :NO DO YOU TAKE A BLOOD THINNERS? :NO DO YOU HAVE ANY BLEEDING DISORDERS? :NO ANY NEW NUMBNESS OR WEAKNESS IN YOUR LEGS OR ARMS? :NO ANY PACEMAKER,DEFIBRILLATOR, OR DORSAL COLUMN STIMULATOR? :NO DO YOU HAVE ANY RASHES OR OPEN SORES? :NO ARE YOU ALLERGIC TO IV DYE? :NO ARE YOU DIABETIC? :NO ANY NEW PROBLEMS WITH YOUR MEDICATIONS? :NO HAVE YOU RECEIVED A VACCINE IN THE PAST 30 DAYS? :NO DO YOU PLAN TO RECEIVE A VACCINE IN THE NEXT 21 DAYS? :NO DO YOU TAKE ANY IMMUNOSUPPRESSIVE MEDICATIONS? :NO ANY HISTORY OF SEIZURES? :NO ANY HISTORY OF CARDIAC ISSUES OR EVENTS? :NO DO YOU HAVE ANY KIDNEY OR LIVER DISEASE? :NO DO YOU HAVE SLEEP APNEA? :YES DO YOU WEAR A CPAP?NO ANY RECENT HEAD INJURY? :NO DO YOU HAVE ANY NEW INFECTIONS? :NO IS THERE A CHANCE YOU COULD BE ? :NO ARE YOU BREAST FEEDING? :NO WHEN DID YOU LAST EAT? : 08/08/20 WHEN DID YOU LAST DRINK? : 08/09/20 4360 WHAT DID YOU LAST DRINK? : WATER NAME OF PERSON DRIVING YOU HOME? : FAMILY MEMBER DO YOU HAVE ANY OTHER QUESTIONS OR CONCERNS? : NO CURRENT MEDICATIONS TAKING FISH OIL 1000 MG CAPSULE 2 CAPSULES ORALLY BEFORE BEDTIME TAKING ZONISAMIDE 100 MG CAPSULE 2 CAPSULES ORALLY AT BEDTIME TAKING SUMATRIPTAN SUCCINATE 100 MG TABLET 1 TABLET NEEDED ORALLY NEEDED TAKING MAGNESIUM 500 MG TABLET 1 TAB ORALLY DAILY TAKING VITAMIN B12 1000 MCG TABLET EXTENDED RELEASE 1 TABLET ORALLY ONCE A DAY TAKING REFRESH EYE ITCH RELIEF TAKING REFRESH LIQUIGEL 1 % SOLUTION 1 DROP INTO AFFECTED EYE NEEDED OPHTHALMIC THREE TIMES A DAY TAKING THERATEARS 0.25 % SOLUTION DIRECTED OPHTHALMIC TAKING PRESERVISION/LUTEIN - CAPSULE DIRECTED ORALLY 2 CAPS DAILY TAKING FENOFIBRATE 145 MG TABLET 1 TABLET WITH FOOD ORALLY ONCE A DAY TAKING ATORVASTATIN CALCIUM 80 MG TABLET 1 TABLET ORALLY ONCE A DAY TAKING MELOXICAM 15 MG TABLET TAKE ONE TABLET BY MOUTH EVERY DAY TAKING LISINOPRIL-HYDROCHLOROTHIAZIDE 20-12.5 MG TABLET 1 TABLET ORALLY ONCE A DAY, NOTES: 08/07/20 TAKING D3-50 1.25 MG (67770 UT) CAPSULE TAKE 1 CAPSULE BY MOUTH ONCE A WEEK TAKING PAXIL 40 MG TABLET 1 TABLET IN THE MORNING ORALLY ONCE A DAY TAKING PERCOCET 5-325 MG TABLET 1 TABLET NEEDED ORALLY Q8H PRN FOR SEVERE PAIN EPISODES RIGHT SHOULDER MDD3, NOTES: 08/08/20 TAKING VITAMIN D3 65571 UNITS CAPSULE 1 CAPSULE ORALLY ONCE A WEEK NOT-TAKING MOBIC 15 MG TAKE ONE TABLET BY MOUTH EVERY DAY NOT-TAKING ATROPINE SULFATE 1 % SOLUTION 1 APPLICATION INTO THE LOWER EYELID OF AFFECTED EYE OPHTHALMIC BID NOT-TAKING PRED FORTE 1 % SUSPENSION 1 DROPS INTO L EYE OPHTHALMIC THREE TIMES DAILY MEDICATION LIST REVIEWED AND RECONCILED WITH THE PATIENT PAST MEDICAL HISTORY HYPERTENSION HYPERLIPIDEMIA DEPRESSION/ANXIETY TBI - MAULED BY YAZMIN 11/13, [facility] NO OVERNIGHT STAY DM2 03/2019 MORBID OBESITY VIT D DEF ANEMIA, FE DEF - IMPROVED CHR B KNEE PAIN - NCOG KIERA, NONCOMPLIANT WITH CPAP CHR B KNEE PAIN CHR LOW BACK PAIN STAGE 3 BRAIN CANCER ALLERGIES N.K.D.A. SOCIAL HISTORY GENERAL: TOBACCO USE ARE YOU A:FORMER SMOKER HOW LONG HAS IT BEEN SINCE YOU LAST SMOKED?> 10 YEARS ADDITIONAL FINDINGS: TOBACCO USERSNUFF USER USES VERY RARELY SMOKING CESSATION INFORMATION GIVEN02/16/2020 LATEX QUESTIONNAIRE LATEX ALLERGY : HAVE YOU EVER DEVELOPED ANY TYPE OF REACTION AFTER HANDLING LATEX PRODUCTS SUCH RUBBER GLOVES, CONDOMS, DIAPHRAGMS, BALLOONS, SOCKS, OR UNDERWEAR?NO LATEX ALLERGY : HAVE YOU EVER DEVELOPED ANY TYPE OF REACTION DURING OR AFTER DENTAL APPOINTMENT, VAGINAL/RECTAL EXAMINATION, SURGICAL PROCEDURE, OR ANY OTHER EXPOSURE?NO LATEX RISK : HAVE YOU EVER HAD ANY DIFFICULTY BREATHING OR HIVES AFTER EATING OR HANDLING ANY FRUITS, OR VEGETABLES; SUCH KIWI, BANANAS, STONE FRUITS, OR CHESTNUTSNO LATEX RISK : DO YOU HAVE A PREVIOUS PERSONAL HISTORY OF MORE THAN NINE SURGERIES, SPINA BIFIDA, OR REPEATED CATHERIZATIONS? NO LATEX RISK : ARE YOU FREQUENTLY EXPOSED TO LATEX PRODUCTS IN YOUR OCCUPATION?NO DATE ASKED : 08/08/2020 ALCOHOL USE: NO. LUNG CANCER SCREENING SMOKING STATUS:FORMER SMOKER BMI CARE GOAL FOLLOW-UP ABOVE NORMAL BMI FOLLOW-UPFEEDING REGIME, WEIGHT MONITORING ALCOHOL SCREENING DID YOU HAVE A DRINK CONTAINING ALCOHOL IN THE PAST YEAR?NO POINTS0 INTERPRETATIONNEGATIVE RECREATIONAL DRUG USE DRUG USE?NO CAFFEINE CAFFEINE USE?YES HOW OFTEN AND HOW MUCH? 1-2 CUPS DAILY SEXUAL HX HAD SEX IN THE LAST 12 MONTHS (VAGINAL, ORAL, OR ANAL)?: NO, HAVE YOU EVER HAD AN STD?: NO. HIV / HEP-C SCREENING HIV TEST OFFERED TO PATIENT:YES DATE OFFERED:11/16/2018 TEST ACCEPTED:NO HEP-C TEST OFFERED TO PATIENT:YES DATE OFFERED:11/16/2018 REASON:PATIENT DECLINED TEST ACCEPTED:NO REASON:PATIENT DECLINED BROCHURE PROVIDED TO PATIENTNO JEHOVAH'S WITNESS [id number] DENOMINATIONAL NO LUTHERAN BELIEFS THAT WOULD IMPACT HEALTH CARE. LANGUAGE LANGUAGES SPOKEN:[employer] DIPLOMA. 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 DIET: REGULAR. EXERCISE: NO REGULAR EXERCISE. - PFS REFERRAL NEEDED?NO CLERGY REFERRAL NEEDED?NO PUBLIC HEALTH REFERRAL NEEDED?NO WAS THE PROVIDER NOTIFIED OF ANY PERTINENT INFO? N/A HAS THE PATIENT BEEN EDUCATED REGARDING HIS/HER PLAN OF CARE?YES HAS THE PATIENT BEEN EDUCATED REGARDING PAIN, THE RISK FOR PAIN, THE IMPORTANCE OF EFFECTIVE PAIN MANAGEMENT, AND THE PAIN ASSESSMENT PROCESS?YES HOUSING: LIVES WITH MOTHER. ADVANCE DIRECTIVE ADVANCE DIRECTIVE DISCUSSED WITH PATIENT:YES DOES HAVE HEALTH CARE PROXY DIANNA HERNANDEZ VITAL SIGNS WT 336.8 LBS, HT 70 IN, BMI 48.32 INDEX, BP 198/131DINAMAP, REPEAT BP 160/100 MANUAL, HR 79 /MIN, RR 18 /MIN, TEMP 97.1 F, OXYGEN SAT % 95%, SAFE IN ENV? (Y/N) Y, NA INITIALS AW 0838, REVIEWED BY: EMLET NURSE KNOW ABOUT PT BP160/110, MANUAL @ 0935, DR ROSS AWARE. EM. EXAMINATION GENERAL EXAMINATION: THE PATIENT IS ALERT, ORIENTED TIMES THREE AND COOPERATIVE. LUNGS ARE CLEAR TO AUSCULTATION. HEART SHOWS REGULAR RHYTHM, NO MURMURS AND NO GALLOPS. ASSESSMENTS MYALGIA, UNSPECIFIED SITE - M79.10 (PRIMARY) TREATMENT MYALGIA, UNSPECIFIED SITE MEDICATION: VALIUM TAB 5MG ORALLY (DIAZEPAM)MICHAEL BELLE 08/09/2020 9:15:44 AM > VERIFIED TERRIE MEYER 08/09/2020 9:17:33 AM > ADMINISTERED DILEONARDBRIAN RosarioGEMINI 08/09/2020 10:06:25 AM - SECOND DOSE ORDERED, VERIFIED BY GYPSY ALMANZA 08/09/2020 10:10:32 AM > VERIFIED. TERRIE MEYER 08/09/2020 10:11:50 AM > ADMINISTERED MEDICATION: OXYCODONE HCL TAB 10MG ORALLYMICHAEL BELLE 08/09/2020 9:16:00 AM > VERIFIED TERRIE MEYER 08/09/2020 9:17:55 AM > ADMINISTERED COMPLETION OF PROCEDURAL VISIT WHEN MEETS CRITERIATERRIE MEYER 08/09/2020 11:02:55 AM > CRITERIA MET @ 1044. NOTES: CALLED PT POST PROCEDURE @ 1300, HOME B/P IS 159/102, PT REPORTS THAT HE TOOK HIS LISINOPRIL/HCTZ TODAY @ 1130. PT DENIES S/S AT THIS TIME. ABOVE REPORTED TO DR ROSS, NO FURTHER ACTION IS REQUIRED AT THIS TIME, PT IS AWARE. EM . OTHERS NOTES: PRE PROCEDURE PHONE CALL COMPLETED WITH PATIENT 08/08/2020 09Candida CHUNG RN. PROCEDURES PAIN NURSING RECORD PROCEDURE IN ROOM 0825, PHYSICIAN IN ROOM 1016, START 1019, FINISH 1022, PHYSICIAN OUT OF ROOM 1023, OUT OF ROOM 1041, ECG N/A, PATIENT SHIELDED N/A, SAFETY STRAP N/A, PREP ALCOHOL DR. ROSS, DRESSING TEGADERM Danie MEYER RN LOC: 1. ALERT, ORIENTED, TERRIE MEYER 08/09/2020 10:22:00 AM > RESP: 1. REGULAR, NO DYSPNEA, TERRIE MEYER 08/09/2020 10:22:03 AM > COLOR: 1. PINK, TERRIE MEYER 08/09/2020 10:22:07 AM > SKIN: 1. WARM, DRY, JOHN MEYERBETH 08/09/2020 10:22:11 AM > POSITION: 5. SITTING, JOHN MEYERBETH 08/09/2020 10:22:16 AM > VITALS: 160/108, 75, 16, 96%, TERRIE MEYER 08/09/2020 10:40:23 AM > NOTES Danie MEYER RN COMPLETION OF PROCEDURE APPOINTMENT: POST PAIN 5, DRESSING SITE DRY AND INTACT, IV N/A, GAIT STEADY, TEACHING COMPLETED, PATIENT ACKNOWLEDGES UNDERSTANDING YES, PROCEDURE APPOINTMENT COMPLETED AT 1044 PN WORKMANS' COMP OPINION IN YOUR OPINION, WAS THE INCIDENT THAT THE PATIENT DESCRIBED THE COMPETENT MEDICAL CAUSE OF THIS INJURY/ILLNESS? YES ARE THE PATIENT'S COMPLAINTS CONSISTENT WITH HIS/HER HISTORY OF THE INJURY/ILLNESS? YES IS THE PATIENT'S HISTORY OF THE INJURY/ILLNESS CONSISTENT WITH YOUR OBJECTIVE FINDING? YES WHAT IS THE PERCENTAGE OF TEMPORARY IMPAIRMENT? MODERATE TO MARKED = 66.7% . IS THE PATIENT WORKING? NO . DOCTOR ON SITE: LOLA PRO MD PN TRIGGER POINT INJECTION WITH STEROIDS PRE PROCEDURE DIAGNOSIS 1. MYALGIA 2. PAIN AT RIGHT SHOULDER AREA POST PROCEDURE DIAGNOSIS 1. MYALGIA 2. PAIN AT RIGHT SHOULDER AREA PROCEDURE TRIGGER POINT INJECTION AT RIGHT SHOULDER AREA SURGEON DR. LOLA ROSS TITLE VEHICLE SERVICE ATTENDANT NONE ANESTHESIA LOCAL PRE PROCEDURE NOTE THE PATIENT HAS A HISTORY OF CHRONIC PAIN AT THE RIGHT SHOULDER AREA. I EVALUATED THE PATIENT AND REVIEWED THE CHART. THERE IS EVIDENCE OF BANDS OF TISSUE WITH RESTRICTION OF MOVEMENT AND PRESENCE OF TRIGGER POINT AT THE RIGHT SHOULDER AREA. I WENT OVER THE RISKS, ALTERNATIVES, AND BENEFITS ASSOCIATED WITH THIS PROCEDURE. THE PATIENT WOULD LIKE TO PROCEED AND GIVE CONSENT TO PERFORMED THE PROCEDURE. THE PATIENT DENIES UNEXPLAINABLE WEIGHT LOSS, FEVER, CHILLS, OR NEW CHANGES IN URINARY OR BOWEL CONTROL. THE PATIENT IS COVID-19 NEGATIVE DESCRIPTION OF PROCEDURE THE PATIENT WAS BROUGHT TO THE PROCEDURE ROOM AND PLACED IN THE SITTING POSITION. THE AREA WAS CLEANED WITH ALCOHOL. THE PROCEDURE WAS DONE USING ASEPTIC STERILE TECHNIQUE. A TIMEOUT WAS PERFORMED WHERE THE CONSENTED SITE WAS VERIFIED WITH EVERYONE IN THE ROOM. USING A 25-GAUGE NEEDLE, TRIGGER POINTS WERE INJECTED AT THE RIGHT SHOULDER AREA WITH A TOTAL OF 40 ML OF BUPIVACAINE 0.25% AND KENALOG 40 MG. THE MEDICATIONS WERE VERIFIED WITH THE NURSE. THERE WAS NO EVIDENCE OF BLOOD OR PARESTHESIA DURING THE PROCEDURE. THE PATIENT WAS SENT TO THE RECOVERY ROOM. THE PATIENT WAS MOVING THE EXTREMITIES AND DOING WELL. THERE WERE NO COMPLICATIONS DURING THE PROCEDURE. ESTIMATED BLOOD LOSS WAS LESS THAN 5 ML POST PROCEDURE NOTE THE PROCEDURE DONE WAS DISCUSSED WITH THE PATIENT. THE PATIENT WILL BE SEEN IN A FOLLOW UP IN THE NEXT FEW WEEKS. I AM LOOKING FOR LONG LASTING PAIN RELIEF FOR THE PATIENT WITH THIS INTERVENTION. INSTRUCTIONS WERE GIVEN, QUESTIONS WERE ANSWERED, AND THE PATIENT EXPRESSED UNDERSTANDING AND AGREES WITH THE PLAN. I, GEMINI AVITIA, DOCUMENTED THE ABOVE INFORMATION ACTING A SCRIBE FOR DR. ROSS. I HAVE REVIEWED THE ABOVE DOCUMENT, WRITTEN BY GEMINI AVITIA, CONTROL OFFICER MANAGER, AND I VERIFY THAT IT IS ACCURATE PROCEDURE CODES 16681 INJ TRIGGER POINT 03/09 [facility] [place]UN[place] FOLLOW UP FOLLOW UP WITH OSS ARCHITECT (REASON: POST TRIGGER POINT INJECTIONS RIGHT SHOULDER) ELECTRONICALLY SIGNED BY LOLA ROSS MD, MD ON 08/14/2020 AT 08:52 AM EDT DISCLAIMER : THIS IS A VISIT SUMMARY EXTRACTED FROM THE [employer] CHART. IT IS NOT A COPY OF THE [employer] PROGRESS NOTE. MTDZan
== END ==
LOC: M PAIN 08:30
PROVIDERS: ATTEND Anesthesiology
DX: M79.10 Myalgia, unspecified site (principal); G47.33 Obstructive sleep apnea (adult) (pediatric); E55.9 Vitamin D deficiency, unspecified; Z87.820 Personal history of traumatic brain injury; Z86.59 Personal history of other mental and behavioral disorders; Z87.891 Personal history of nicotine dependence; E66.01 Morbid (severe) obesity due to excess calories; Z68.42 Body mass index [BMI] 45.0-49.9, adult; Z79.899 Other long term (current) drug therapy
CPT/HCPCS: 20552; J3301

== ENCOUNTER → 2020-08-23 | Outpatient (CLI) | payer OTHER, MEDICARE ==
[~2020-08-23] MED LIST changes: -BUPIVACAINE HCL 0.25% 10ML VIAL As Ordered ONE; -BUPIVACAINE HCL 0.25% 30ML VIAL As Ordered ONE; -TRIAMCINOLONE ACETONIDE SUSP 40 MG/ML VIAL (J3301) As Ordered ONE; -diazePAM 5MG TABLET As Ordered ONE; -oxyCODONE 5MG TAB As Ordered ONE
--- NOTE | 2020-08-28 02:35 | ECWPNPC ---
PATIENT NAME: DULCE WYNNE : 1965 GENDER: MALE VISIT DATE: 08/23/2020 DISCHARGE DATE: 08/23/20 0950 VISIT LOCKED DATE TIME: PHYSICIAN: KASSIDY JIM PHYSICIAN PAGER NO: ACTIVE RESOURCE: KASSIDY JIM REASON FOR APPOINTMENT 1. POST TRIGGER POINT INJECTIONS TO RIGHT SHOULDER HISTORY OF PRESENT ILLNESS DEPRESSION SCREENING: PHQ-2 (2015 EDITION) LITTLE INTEREST OR PLEASURE IN DOING THINGS?NOT AT ALL FEELING DOWN, DEPRESSED, OR HOPELESS?NOT AT ALL TOTAL SCORE0 GENERAL: HERE FOR FOLLOW-UP OF PERSISTENT RIGHT SHOULDER PAIN WITH A HISTORY OF A WORK-RELATED TRAUMATIC INJURY. THIS IS A POST PROCEDURE FOLLOW-UP. HAD TRIGGER POINT INJECTIONS TO RIGHT SHOULDER ON 08/09/2020. PATIENT IS REPORTING GREATER THAN 80% REDUCTION IN PAIN THAT CONTINUES TODAY. REPORTING MARKED IMPROVEMENT WITH RANGE OF JOINT MOTION OF HIS RIGHT ARM. HAS GONE FROM A 75 ABDUCTION RANGE BEFORE TRIGGER POINT INJECTIONS TO A 160 ABDUCTION RANGE POST TRIGGER POINT INJECTIONS TO RIGHT SHOULDER. PATIENT HAS NOT NEEDED TO TAKE PAIN MEDICATION ,PERCOCET 5/325, SINCE HAVING PROCEDURE. PATIENT IS REPORTING IMPROVED SLEEP AT NIGHT POST PROCEDURE. REPORTING SIGNIFICANT IMPROVEMENT WITH ABILITY TO USE HIS RIGHT ARM AND TOLERATE ACTIVITIES SINCE PROCEDURE. - -. FALL RISK SCREENING: SCREENING : NO FALLS REPORTED IN THE LAST YEAR. PAIN SCREENING: PATIENT HAS A COMPLAINT OF ACUTE OR CHRONIC PAIN :YES LOCATION OF PAIN:RIGHT SHOULDER INTENSITY OF PAIN (SCALE OF 1 TO 10):2 WHAT DOES YOUR PAIN FEEL LIKE:SORE DURATION:CONTINOUS, CONSTANT, ALL DAY PAIN IS INCREASED BY:ACTIVITIES PAIN IS DECREASED BY:USE OF PAIN MEDICATIONS NURSING NOTE: -. PAIN CENTER INTAKE QUESTIONS: DO YOU HAVE A HISTORY OF MRSA? :NO DO YOU TAKE A BLOOD THINNERS? :NO DO YOU HAVE ANY BLEEDING DISORDERS? :NO ANY NEW NUMBNESS OR WEAKNESS IN YOUR LEGS OR ARMS? :YES RIGHT ARM PAIN GOES DOWN INTO MIDDLE FINER AND TRIGGER FINGER NUMBNESS ANY PACEMAKER,DEFIBRILLATOR, OR DORSAL COLUMN STIMULATOR? :NO DO YOU HAVE ANY RASHES OR OPEN SORES? :NO ARE YOU ALLERGIC TO IV DYE? :NO ARE YOU DIABETIC? :NO ANY NEW PROBLEMS WITH YOUR MEDICATIONS? :NO HAVE YOU RECEIVED A VACCINE IN THE PAST 30 DAYS? :YES IF SO WHAT VACCINE AND WHEN? SECOND COVID VACCINATION 06/07/2020. DO YOU PLAN TO RECEIVE A VACCINE IN THE NEXT 21 DAYS? :NO DO YOU NEED ANY PRESCRIPTION? :NO DO YOU TAKE ANY IMMUNOSUPPRESSIVE MEDICATIONS? :NO IS THERE A CHANCE YOU COULD BE ? :NO ARE YOU BREAST FEEDING? :NO CURRENT MEDICATIONS TAKING FISH OIL 1000 MG CAPSULE 2 CAPSULES ORALLY BEFORE BEDTIME TAKING ZONISAMIDE 100 MG CAPSULE 2 CAPSULES ORALLY AT BEDTIME TAKING SUMATRIPTAN SUCCINATE 100 MG TABLET 1 TABLET NEEDED ORALLY NEEDED TAKING MAGNESIUM 500 MG TABLET 1 TAB ORALLY DAILY TAKING VITAMIN B12 1000 MCG TABLET EXTENDED RELEASE 1 TABLET ORALLY ONCE A DAY TAKING REFRESH EYE ITCH RELIEF TAKING REFRESH LIQUIGEL 1 % SOLUTION 1 DROP INTO AFFECTED EYE NEEDED OPHTHALMIC THREE TIMES A DAY TAKING THERATEARS 0.25 % SOLUTION DIRECTED OPHTHALMIC TAKING PRESERVISION/LUTEIN - CAPSULE DIRECTED ORALLY 2 CAPS DAILY TAKING FENOFIBRATE 145 MG TABLET 1 TABLET WITH FOOD ORALLY ONCE A DAY TAKING ATORVASTATIN CALCIUM 80 MG TABLET 1 TABLET ORALLY ONCE A DAY TAKING MELOXICAM 15 MG TABLET TAKE ONE TABLET BY MOUTH EVERY DAY TAKING LISINOPRIL-HYDROCHLOROTHIAZIDE 20-12.5 MG TABLET 1 TABLET ORALLY ONCE A DAY TAKING D3-50 1.25 MG (89782 UT) CAPSULE TAKE 1 CAPSULE BY MOUTH ONCE A WEEK TAKING PAXIL 40 MG TABLET 1 TABLET IN THE MORNING ORALLY ONCE A DAY TAKING PERCOCET 5-325 MG TABLET 1 TABLET NEEDED ORALLY Q8H PRN FOR SEVERE PAIN EPISODES RIGHT SHOULDER MDD3 TAKING VITAMIN D3 81791 UNITS CAPSULE 1 CAPSULE ORALLY ONCE A WEEK TAKING PROPRANOLOL HCL 10 MG TABLET 2 TABLET ORALLY TID NOT-TAKING MOBIC 15 MG TAKE ONE TABLET BY MOUTH EVERY DAY NOT-TAKING ATROPINE SULFATE 1 % SOLUTION 1 APPLICATION INTO THE LOWER EYELID OF AFFECTED EYE OPHTHALMIC BID NOT-TAKING PRED FORTE 1 % SUSPENSION 1 DROPS INTO L EYE OPHTHALMIC THREE TIMES DAILY MEDICATION LIST REVIEWED AND RECONCILED WITH THE PATIENT PAST MEDICAL HISTORY HYPERTENSION HYPERLIPIDEMIA DEPRESSION/ANXIETY TBI - MAULED BY YAZMIN 11/13, [facility] NO OVERNIGHT STAY DM2 03/2019 MORBID OBESITY VIT D DEF ANEMIA, FE DEF - IMPROVED CHR B KNEE PAIN - NCOG KIERA, NONCOMPLIANT WITH CPAP CHR B KNEE PAIN CHR LOW BACK PAIN STAGE 3 BRAIN CANCER PARKINSON DISEASE ALLERGIES N.K.D.A. SOCIAL HISTORY GENERAL: TOBACCO USE ARE YOU A:FORMER SMOKER HOW LONG HAS IT BEEN SINCE YOU LAST SMOKED?> 10 YEARS ADDITIONAL FINDINGS: TOBACCO USERSNUFF USER USES VERY RARELY SMOKING CESSATION INFORMATION GIVEN02/16/2020 LATEX QUESTIONNAIRE LATEX ALLERGY : HAVE YOU EVER DEVELOPED ANY TYPE OF REACTION AFTER HANDLING LATEX PRODUCTS SUCH RUBBER GLOVES, CONDOMS, DIAPHRAGMS, BALLOONS, SOCKS, OR UNDERWEAR?NO LATEX ALLERGY : HAVE YOU EVER DEVELOPED ANY TYPE OF REACTION DURING OR AFTER DENTAL APPOINTMENT, VAGINAL/RECTAL EXAMINATION, SURGICAL PROCEDURE, OR ANY OTHER EXPOSURE?NO LATEX RISK : HAVE YOU EVER HAD ANY DIFFICULTY BREATHING OR HIVES AFTER EATING OR HANDLING ANY FRUITS, OR VEGETABLES; SUCH KIWI, BANANAS, STONE FRUITS, OR CHESTNUTSNO LATEX RISK : DO YOU HAVE A PREVIOUS PERSONAL HISTORY OF MORE THAN NINE SURGERIES, SPINA BIFIDA, OR REPEATED CATHERIZATIONS? NO LATEX RISK : ARE YOU FREQUENTLY EXPOSED TO LATEX PRODUCTS IN YOUR OCCUPATION?NO DATE ASKED : 08/23/2020 ALCOHOL USE: YES, VERY LITTLE. LUNG CANCER SCREENING SMOKING STATUS:FORMER SMOKER BMI CARE GOAL FOLLOW-UP ABOVE NORMAL BMI FOLLOW-UPFEEDING REGIME, WEIGHT MONITORING ALCOHOL SCREENING DID YOU HAVE A DRINK CONTAINING ALCOHOL IN THE PAST YEAR?NO POINTS0 INTERPRETATIONNEGATIVE RECREATIONAL DRUG USE DRUG USE?NO CAFFEINE CAFFEINE USE?YES HOW OFTEN AND HOW MUCH? 1-2 CUPS DAILY SEXUAL HX HAD SEX IN THE LAST 12 MONTHS (VAGINAL, ORAL, OR ANAL)?: NO, HAVE YOU EVER HAD AN STD?: NO. HIV / HEP-C SCREENING HIV TEST OFFERED TO PATIENT:YES DATE OFFERED:11/16/2018 TEST ACCEPTED:NO HEP-C TEST OFFERED TO PATIENT:YES DATE OFFERED:11/16/2018 REASON:PATIENT DECLINED TEST ACCEPTED:NO REASON:PATIENT DECLINED BROCHURE PROVIDED TO PATIENTNO ANABAPTISM [id number] AMISH NO YAZIDISM BELIEFS THAT WOULD IMPACT HEALTH CARE. LANGUAGE LANGUAGES SPOKEN:[employer] DIPLOMA. 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 DIET: REGULAR. EXERCISE: NO REGULAR EXERCISE. - PFS REFERRAL NEEDED?NO CLERGY REFERRAL NEEDED?NO PUBLIC HEALTH REFERRAL NEEDED?NO WAS THE PROVIDER NOTIFIED OF ANY PERTINENT INFO? N/A HAS THE PATIENT BEEN EDUCATED REGARDING HIS/HER PLAN OF CARE?YES HAS THE PATIENT BEEN EDUCATED REGARDING PAIN, THE RISK FOR PAIN, THE IMPORTANCE OF EFFECTIVE PAIN MANAGEMENT, AND THE PAIN ASSESSMENT PROCESS?YES HOUSING: LIVES WITH MOTHER. ADVANCE DIRECTIVE ADVANCE DIRECTIVE DISCUSSED WITH PATIENT:YES DOES HAVE HEALTH CARE PROXY DIANNA HERNANDEZ REVIEW OF SYSTEMS CONSTITUTIONAL: ANY RECENT FEVER NO, NO . CHILLS NO, NO . WEIGHT CHANGE OF UNKNOWN REASONS NO, NO . GASTROENTEROLOGY: NEW UNEXPLAINABLE CHANGES IN BOWEL CONTROL NO, NO . CONSTIPATION NO, NO . GENITOURINARY: ANY NEW CHANGE IN BLADDER CONTROL? NO, NO . NEUROLOGY: NEW ONSET DIZZINESS OR NEUROLOGICAL CHANGES NOT MENTIONED NO, NO . NEW NUMBNESS OR PAIN PATTERNS NOT MENTIONED AND PERTINENT TO TODAY'S VISIT NO, NO . CARDIOLOGY: NEW CHEST PRESSURE NO, NO . PATIENT DENIES NO, NO . RESPIRATORY: UNEXPLAINABLE COUGH NO, NO . NEW SHORTNESS OF BREATH NO, NO . VITAL SIGNS WT 334 LBS, HT 70 IN, BMI 47.92 INDEX, BP RA 180/104, REPEAT BP LA 165/88, HR 80 /MIN, RR 18 /MIN, TEMP 95.5 F, OXYGEN SAT % 96%, NA INITIALS SC 09:22. EXAMINATION SHOULDER / UPPER ARM: SHOULDER:RIGHT: NONTENDER WITH PALPATION ABDUCTION RIGHT SHOULDER:160 DEGREES. GENERAL EXAMINATION: GENERAL ALERT,COMFORTABLE . PSYCHAPPROPRIATE MOOD AND AFFECT . NECK:NO LYMPHADENOPATHY, SUPPLE. LUNGS:CLEAR TO AUSCULTATION BILATERALLY, NO WHEEZES, RHONCHI, RALES. HEART:NO MURMURS, REGULAR RATE AND RHYTHM. ASSESSMENTS MYALGIA, OTHER SITE - M79.18 (PRIMARY) PAIN IN RIGHT SHOULDER - M25.511 TREATMENT OTHERS CONTINUE PERCOCET TABLET, 5-325 MG, 1 TABLET NEEDED, ORALLY, Q8H PRN FOR SEVERE PAIN EPISODES RIGHT SHOULDER MDD3, 30 DAYS, 45, REFILLS 0 PROCEDURES PN WORKMANS' COMP OPINION IN YOUR OPINION, WAS THE INCIDENT THAT THE PATIENT DESCRIBED THE COMPETENT MEDICAL CAUSE OF THIS INJURY/ILLNESS? YES ARE THE PATIENT'S COMPLAINTS CONSISTENT WITH HIS/HER HISTORY OF THE INJURY/ILLNESS? YES IS THE PATIENT'S HISTORY OF THE INJURY/ILLNESS CONSISTENT WITH YOUR OBJECTIVE FINDING? YES WHAT IS THE PERCENTAGE OF TEMPORARY IMPAIRMENT? MODERATE TO MARKED = 66.7% IS THE PATIENT WORKING? NO DOCTOR ON SITE: LOLA PRO MD LABS LAB: URINE TEST GROUP TERRIE MEYER 08/23/2020 9:45:53 AM > PERCOCET 08/09/20 PROCEDURE CODES FA211 ESTABILISHED PATIENT [facility] CHARGE DISPOSITION & COMMUNICATION FOLLOW UP 3 MONTHS (REASON: WORKMANS COMP/RIGHT SHOULDER/DOES WELL W TPI/REVIEW UTOX) ELECTRONICALLY SIGNED BY ROSALINA MEZA ON 08/27/2020 AT 01:21 PM EDT DISCLAIMER : THIS IS A VISIT SUMMARY EXTRACTED FROM THE [employer] CHART. IT IS NOT A COPY OF THE [employer] PROGRESS NOTE. VIDYAD
== END ==
LOC: M PAIN 09:15
PROVIDERS: ATTEND Nurse Practitioner Family
DX: M79.18 Myalgia, other site (principal); M25.511 Pain in right shoulder; E55.9 Vitamin D deficiency, unspecified; G47.33 Obstructive sleep apnea (adult) (pediatric); G20 Parkinson's disease; Z86.59 Personal history of other mental and behavioral disorders; Z87.820 Personal history of traumatic brain injury; Z87.891 Personal history of nicotine dependence; E66.01 Morbid (severe) obesity due to excess calories; Z68.42 Body mass index [BMI] 45.0-49.9, adult; Z79.899 Other long term (current) drug therapy

== ENCOUNTER → 2020-09-23 | Outpatient (CLI) | payer OTHER, MEDICARE ==
--- NOTE | 2020-09-23 14:59 | REP ---
INDICATION: PAIN IN RIGHT HIP COMPARISON: 10/13/2018. TECHNIQUE: Two views right hip. FINDINGS: There is no evidence of acute fracture, dislocation, or intrinsic bone disease.There is minimal joint space narrowing and subchondral sclerosis. IMPRESSION: No fracture or dislocation. Minor degenerative changes. <Electronically signed by Kapil Dong > 09/23/20 1328
== END ==
LOC: M RAD 12:44
PROVIDERS: ATTEND Nurse Practitioner Family
DX: M25.551 Pain in right hip (principal)

== ENCOUNTER → 2020-09-23 | Outpatient (CLI) | payer OTHER, MEDICARE ==
--- NOTE | 2020-09-25 00:35 | ECWPNPC ---
PATIENT NAME: DULCE WYNNE : 1965 GENDER: MALE VISIT DATE: 09/23/2020 DISCHARGE DATE: 09/23/20 1201 VISIT LOCKED DATE TIME: PHYSICIAN: KASSIDY JIM PHYSICIAN PAGER NO: ACTIVE RESOURCE: KASSIDY JIM REASON FOR APPOINTMENT 1. W/C BACK AND HIP PAIN HISTORY OF PRESENT ILLNESS GENERAL: HERE FOR FOLLOW-UP OF CHRONIC RIGHT SHOULDER, LOW BACK AND RIGHT HIP PAIN. THIS IS A WORK-RELATED INJURY. REPORTING INCREASE IN RIGHT LOW BACK PAIN THAT RADIATES INTO RIGHT HIP AND GROIN OVER THE PAST 6 MONTHS. DENIES PRECIPITATING EVENT. FINDS IT DIFFICULT TO AMBULATE. WALKS WITH A LIMP. REVIEWED IMAGING OF THE LUMBAR SPINE. DISCUSSED TREATMENT OPTIONS. -. FALL RISK SCREENING: SCREENING : NO FALLS REPORTED IN THE LAST YEAR. PAIN SCREENING: PATIENT HAS A COMPLAINT OF ACUTE OR CHRONIC PAIN :YES LOCATION OF PAIN:RIGHT SHOULDER, LOW BACK, RIGHT HIP INTENSITY OF PAIN (SCALE OF 1 TO 10):9 WHAT DOES YOUR PAIN FEEL LIKE:ACHING, BURNING, CONTINOUS, SHARP, STABBING, TENDER, SORE, SHOOTING DURATION:CONTINOUS, CONSTANT, ALL DAY PAIN IS INCREASED BY:ACTIVITIES, PROLONGED STANDING PAIN IS DECREASED BY:OTHERS NOTHING HELP NURSING NOTE: -. PAIN CENTER INTAKE QUESTIONS: DO YOU HAVE A HISTORY OF MRSA? :NO DO YOU TAKE A BLOOD THINNERS? :NO DO YOU HAVE ANY BLEEDING DISORDERS? :NO ANY NEW NUMBNESS OR WEAKNESS IN YOUR LEGS OR ARMS? :YES RIGHT ARM PAIN GOES DOWN INTO MIDDLE FINER AND TRIGGER FINGER NUMBNESS ANY PACEMAKER,DEFIBRILLATOR, OR DORSAL COLUMN STIMULATOR? :NO DO YOU HAVE ANY RASHES OR OPEN SORES? :NO ARE YOU ALLERGIC TO IV DYE? :NO ARE YOU DIABETIC? :NO ANY NEW PROBLEMS WITH YOUR MEDICATIONS? :NO HAVE YOU RECEIVED A VACCINE IN THE PAST 30 DAYS? :NO DO YOU PLAN TO RECEIVE A VACCINE IN THE NEXT 21 DAYS? :NO DO YOU NEED ANY PRESCRIPTION? :NO DO YOU TAKE ANY IMMUNOSUPPRESSIVE MEDICATIONS? :NO IS THERE A CHANCE YOU COULD BE ? :NO ARE YOU BREAST FEEDING? :NO CURRENT MEDICATIONS TAKING FISH OIL 1000 MG CAPSULE 2 CAPSULES ORALLY BEFORE BEDTIME TAKING ZONISAMIDE 100 MG CAPSULE 2 CAPSULES ORALLY AT BEDTIME TAKING SUMATRIPTAN SUCCINATE 100 MG TABLET 1 TABLET NEEDED ORALLY NEEDED TAKING MAGNESIUM 500 MG TABLET 1 TAB ORALLY DAILY TAKING VITAMIN B12 1000 MCG TABLET EXTENDED RELEASE 1 TABLET ORALLY ONCE A DAY TAKING REFRESH EYE ITCH RELIEF TAKING REFRESH LIQUIGEL 1 % SOLUTION 1 DROP INTO AFFECTED EYE NEEDED OPHTHALMIC THREE TIMES A DAY TAKING THERATEARS 0.25 % SOLUTION DIRECTED OPHTHALMIC TAKING PRESERVISION/LUTEIN - CAPSULE DIRECTED ORALLY 2 CAPS DAILY TAKING FENOFIBRATE 145 MG TABLET 1 TABLET WITH FOOD ORALLY ONCE A DAY TAKING ATORVASTATIN CALCIUM 80 MG TABLET 1 TABLET ORALLY ONCE A DAY TAKING MELOXICAM 15 MG TABLET TAKE ONE TABLET BY MOUTH EVERY DAY TAKING LISINOPRIL-HYDROCHLOROTHIAZIDE 20-12.5 MG TABLET 1 TABLET ORALLY ONCE A DAY TAKING D3-50 1.25 MG (65726 UT) CAPSULE TAKE 1 CAPSULE BY MOUTH ONCE A WEEK TAKING PAXIL 40 MG TABLET 1 TABLET IN THE MORNING ORALLY ONCE A DAY TAKING VITAMIN D3 53381 UNITS CAPSULE 1 CAPSULE ORALLY ONCE A WEEK TAKING PROPRANOLOL HCL 10 MG TABLET 2 TABLET ORALLY TID TAKING PERCOCET 5-325 MG TABLET 1 TABLET NEEDED ORALLY Q8H PRN FOR SEVERE PAIN EPISODES RIGHT SHOULDER MDD3 NOT-TAKING MOBIC 15 MG TAKE ONE TABLET BY MOUTH EVERY DAY NOT-TAKING ATROPINE SULFATE 1 % SOLUTION 1 APPLICATION INTO THE LOWER EYELID OF AFFECTED EYE OPHTHALMIC BID NOT-TAKING PRED FORTE 1 % SUSPENSION 1 DROPS INTO L EYE OPHTHALMIC THREE TIMES DAILY MEDICATION LIST REVIEWED AND RECONCILED WITH THE PATIENT PAST MEDICAL HISTORY HYPERTENSION HYPERLIPIDEMIA DEPRESSION/ANXIETY TBI - MAULED BY YAZMIN 11/13, [facility] NO OVERNIGHT STAY DM2 03/2019 MORBID OBESITY VIT D DEF ANEMIA, FE DEF - IMPROVED CHR B KNEE PAIN - NCOG KIERA, NONCOMPLIANT WITH CPAP CHR B KNEE PAIN CHR LOW BACK PAIN STAGE 3 BRAIN CANCER PARKINSON DISEASE SECOND COVID VACCINATION 06/07/2020. ALLERGIES N.K.D.A. SOCIAL HISTORY GENERAL: TOBACCO USE ARE YOU A:FORMER SMOKER HOW LONG HAS IT BEEN SINCE YOU LAST SMOKED?> 10 YEARS ADDITIONAL FINDINGS: TOBACCO USERSNUFF USER USES VERY RARELY SMOKING CESSATION INFORMATION GIVEN02/16/2020 LATEX QUESTIONNAIRE LATEX ALLERGY : HAVE YOU EVER DEVELOPED ANY TYPE OF REACTION AFTER HANDLING LATEX PRODUCTS SUCH RUBBER GLOVES, CONDOMS, DIAPHRAGMS, BALLOONS, SOCKS, OR UNDERWEAR?NO LATEX ALLERGY : HAVE YOU EVER DEVELOPED ANY TYPE OF REACTION DURING OR AFTER DENTAL APPOINTMENT, VAGINAL/RECTAL EXAMINATION, SURGICAL PROCEDURE, OR ANY OTHER EXPOSURE?NO LATEX RISK : HAVE YOU EVER HAD ANY DIFFICULTY BREATHING OR HIVES AFTER EATING OR HANDLING ANY FRUITS, OR VEGETABLES; SUCH KIWI, BANANAS, STONE FRUITS, OR CHESTNUTSNO LATEX RISK : DO YOU HAVE A PREVIOUS PERSONAL HISTORY OF MORE THAN NINE SURGERIES, SPINA BIFIDA, OR REPEATED CATHERIZATIONS? NO LATEX RISK : ARE YOU FREQUENTLY EXPOSED TO LATEX PRODUCTS IN YOUR OCCUPATION?NO DATE ASKED : 09/23/2020 ALCOHOL USE: YES, VERY LITTLE. LUNG CANCER SCREENING SMOKING STATUS:FORMER SMOKER BMI CARE GOAL FOLLOW-UP ABOVE NORMAL BMI FOLLOW-UPFEEDING REGIME, WEIGHT MONITORING ALCOHOL SCREENING DID YOU HAVE A DRINK CONTAINING ALCOHOL IN THE PAST YEAR?NO POINTS0 INTERPRETATIONNEGATIVE RECREATIONAL DRUG USE DRUG USE?NO CAFFEINE CAFFEINE USE?YES HOW OFTEN AND HOW MUCH? 1-2 CUPS DAILY SEXUAL HX HAD SEX IN THE LAST 12 MONTHS (VAGINAL, ORAL, OR ANAL)?: NO, HAVE YOU EVER HAD AN STD?: NO. HIV / HEP-C SCREENING HIV TEST OFFERED TO PATIENT:YES DATE OFFERED:11/16/2018 TEST ACCEPTED:NO HEP-C TEST OFFERED TO PATIENT:YES DATE OFFERED:11/16/2018 REASON:PATIENT DECLINED TEST ACCEPTED:NO REASON:PATIENT DECLINED BROCHURE PROVIDED TO PATIENTNO MANDAEISM [id number] HOLINESS NO RASTAFARI BELIEFS THAT WOULD IMPACT HEALTH CARE. LANGUAGE LANGUAGES SPOKEN:[employer] DIP[employer]. 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 DIET: REGULAR. EXERCISE: NO REGULAR EXERCISE. - PFS REFERRAL NEEDED?NO CLERGY REFERRAL NEEDED?NO PUBLIC HEALTH REFERRAL NEEDED?NO WAS THE PROVIDER NOTIFIED OF ANY PERTINENT INFO? N/A HAS THE PATIENT BEEN EDUCATED REGARDING HIS/HER PLAN OF CARE?YES HAS THE PATIENT BEEN EDUCATED REGARDING PAIN, THE RISK FOR PAIN, THE IMPORTANCE OF EFFECTIVE PAIN MANAGEMENT, AND THE PAIN ASSESSMENT PROCESS?YES HOUSING: LIVES WITH MOTHER. ADVANCE DIRECTIVE ADVANCE DIRECTIVE DISCUSSED WITH PATIENT:YES DOES HAVE HEALTH CARE PROXY DIANNA HERNANDEZ REVIEW OF SYSTEMS CONSTITUTIONAL: ANY RECENT FEVER NO, NO . CHILLS NO, NO . WEIGHT CHANGE OF UNKNOWN REASONS NO, NO . GASTROENTEROLOGY: NEW UNEXPLAINABLE CHANGES IN BOWEL CONTROL NO, NO . CONSTIPATION NO, NO . GENITOURINARY: ANY NEW CHANGE IN BLADDER CONTROL? NO, NO . NEUROLOGY: NEW ONSET DIZZINESS OR NEUROLOGICAL CHANGES NOT MENTIONED NO, NO . NEW NUMBNESS OR PAIN PATTERNS NOT MENTIONED AND PERTINENT TO TODAY'S VISIT NO, NO . CARDIOLOGY: NEW CHEST PRESSURE NO, NO . PATIENT DENIES NO, NO . RESPIRATORY: UNEXPLAINABLE COUGH NO, NO . NEW SHORTNESS OF BREATH NO, NO . VITAL SIGNS WT 342.6 LBS, HT 70 IN, BMI 49.15 INDEX, BP 163/81 MM HG, HR 80 /MIN, RR 18 /MIN, TEMP 97.1 F, OXYGEN SAT % 93%, SAFE IN ENV? (Y/N) YES, NA INITIALS MA 11:01T.GUERDA SANCHEZ. EXAMINATION GENERAL EXAMINATION: GENERALDIFFICULTY NOTED ARISING TO STANDING POSITION . PSYCHAPPROPRIATE MOOD AND AFFECT . NECK:NO LYMPHADENOPATHY, SUPPLE. LUNGS:CLEAR TO AUSCULTATION BILATERALLY, NO WHEEZES, RHONCHI, RALES. HEART:NO MURMURS, REGULAR RATE AND RHYTHM. RIGHT HIP: INSPECTION:MARKED TENDERNESS NOTED OVER RIGHT HIP. ASSESSMENTS PAIN IN RIGHT HIP - M25.551 (PRIMARY) SACROILIITIS, NOT ELSEWHERE CLASSIFIED - M46.1 TREATMENT PAIN IN RIGHT HIP START MOBIC TABLET, 15 MG, 1 TABLET, ORALLY, ONCE A DAY, 30 DAY(S), 30, REFILLS 2 SMC HIP, (AP/LAT) [id number] NOTES: DUE TO INCREASE LOW BACK PAIN AND RIGHT HIP PAIN OVER THE PAST FEW MONTHS I AM ORDERING PHYSICAL THERAPY 2 TIMES A WEEK X6 WEEKS WITH GOAL TO BE LESS PAIN AND IMPROVE MOBILITY POST TREATMENT. RECOMMEND STARTING MOBIC 15 MG DAILY FOR INFLAMMATION ASSOCIATED WITH RIGHT HIP PAIN. DUE TO INCREASE IN PAIN AND IMPAIRED MOBILITY IM ORDERING A X-RAY OF THE RIGHT HIP. WE WILL CONSIDER INTERVENTIONAL OPTIONS TO INCLUDE SACROILIAC JOINT BLOCK OR TROCHANTERIC BURSAL INJECTION AFTER REVIEW AT FOLLOW-UP IN 2 MONTHS. PRINTED INFORMATION ON NEW MEDICATION FOR PATIENT ARUNA SANCHEZ. REFERRAL TO:PHYSICAL THERAPIST REASON:2XWK X 6 WKS,BACK REHABILITATION,STRENGTHENING,MOBILIZATION PROCEDURES PN WORKMANS' COMP OPINION IN YOUR OPINION, WAS THE INCIDENT THAT THE PATIENT DESCRIBED THE COMPETENT MEDICAL CAUSE OF THIS INJURY/ILLNESS? YES ARE THE PATIENT'S COMPLAINTS CONSISTENT WITH HIS/HER HISTORY OF THE INJURY/ILLNESS? YES IS THE PATIENT'S HISTORY OF THE INJURY/ILLNESS CONSISTENT WITH YOUR OBJECTIVE FINDING? YES WHAT IS THE PERCENTAGE OF TEMPORARY IMPAIRMENT? MODERATE TO MARKED = 66.7% IS THE PATIENT WORKING? NO DOCTOR ON SITE: [facility] PRO MD PROCEDURE CODES FA211 ESTABILISHED PATIENT [facility] CHARGE DISPOSITION & COMMUNICATION FOLLOW UP REASON: WORKMEN'S COMP., RIGHT HIP, LOW BACK, REVIEW RIGHT HIP X-RAY, REVIEW NEW START MOBIC ELECTRONICALLY SIGNED BY ROSALINA MEZA ON 09/24/2020 AT 12:33 PM EDT DISCLAIMER : THIS IS A VISIT SUMMARY EXTRACTED FROM THE [employer] ([email or web address]) CHART. IT IS NOT A COPY OF THE [email or web address] PROGRESS NOTE. CHRISTA
== END ==
LOC: M PAIN 10:45
PROVIDERS: ATTEND Nurse Practitioner Family
DX: M25.551 Pain in right hip (principal); M46.1 Sacroiliitis, not elsewhere classified; G89.29 Other chronic pain; E55.9 Vitamin D deficiency, unspecified; G47.33 Obstructive sleep apnea (adult) (pediatric); Z86.59 Personal history of other mental and behavioral disorders; Z87.820 Personal history of traumatic brain injury; Z87.891 Personal history of nicotine dependence; E66.01 Morbid (severe) obesity due to excess calories; Z68.42 Body mass index [BMI] 45.0-49.9, adult; Z79.899 Other long term (current) drug therapy

== ENCOUNTER → 2020-11-15 | Outpatient (REF) | payer OTHER ==
[2020-11-15 13:24] LABS: HEMOGLOBIN A1c 7.6 %
[2020-11-15 13:39] LABS: CHOLESTEROL RISK RATIO 4.395 (<5)
[2020-11-15 13:47] LABS: CREATININE, URINE 54.1 MG/DL; MAU/CREAT RATIO 86.8 MCG/MG (0.0-30.0)
[2020-11-15 13:49] LABS: TOTAL 25(OH) VITAMIN D 35.7 NG/ML (30.0-100.0)
== END ==
LOC: M SFHCADAM 08:56
PROVIDERS: ATTEND Physician Assistant Medical
DX: E11.9 Type 2 diabetes mellitus without complications (principal); E78.2 Mixed hyperlipidemia; F34.1 Dysthymic disorder

== ENCOUNTER → 2020-12-04 | Outpatient (CLI) | payer OTHER | LOC: M PAIN 10:15 | PROVIDERS: ATTEND Anesthesiology | DX: M79.10 Myalgia, unspecified site (principal); M25.551 Pain in right hip; E11.9 Type 2 diabetes mellitus without complications; E55.9 Vitamin D deficiency, unspecified; G47.33 Obstructive sleep apnea (adult) (pediatric); G20 Parkinson's disease; Z86.59 Personal history of other mental and behavioral disorders; Z87.820 Personal history of traumatic brain injury; Z87.891 Personal history of nicotine dependence; E66.01 Morbid (severe) obesity due to excess calories; Z68.42 Body mass index [BMI] 45.0-49.9, adult; Z79.84 Long term (current) use of oral hypoglycemic drugs; Z79.899 Other long term (current) drug therapy ==

== ENCOUNTER → 2021-01-23 | Outpatient (CLI) | payer OTHER ==
--- NOTE | 2021-01-23 16:26 | REP ---
INDICATION: LEFT HIP PAIN COMPARISON: None. TECHNIQUE: AP and frog-lateral views of the left hip hip FINDINGS: Mild early degenerative changes include increased sclerosis to the acetabular roof with marginal spurring. Minimal joint space narrowing is suggested. Proximal femur appears intact and normal. IMPRESSION: Mild early degenerative changes. <Electronically signed by Jose Hernandez > 01/23/21 [id number]
--- NOTE | 2021-01-23 16:27 | REP ---
INDICATION: LEFT HIP PAIN COMPARISON: None. TECHNIQUE: AP, lateral, bilateral oblique, and coned-down views of the lumbar spine. FINDINGS: Alignment and lordosis maintained. Vertebral bodies are intact. No acute fracture/compression injury or subluxation. Disc spaces are relatively normal/age-appropriate. No obvious spondylolysis or spondylolisthesis. IMPRESSION: Normal age-appropriate lumbosacral spine series. <Electronically signed by Jose Hernandez > 01/23/21 [id number]
== END ==
LOC: M ADAMS 15:58
PROVIDERS: ATTEND Family Medicine
DX: M25.552 Pain in left hip (principal)

== ENCOUNTER → 2021-02-05 | Outpatient (CLI) | payer OTHER | LOC: M LABSMTC 10:21 | PROVIDERS: ATTEND Anesthesiology | DX: Z01.812 Encounter for preprocedural laboratory examination (principal); Z20.822 Contact with and (suspected) exposure to COVID-19 ==

== ENCOUNTER → 2021-02-10 | Outpatient (CLI) | payer OTHER | LOC: M PAIN 10:00 | PROVIDERS: ATTEND Anesthesiology | DX: Z53.8 Procedure and treatment not carried out for other reasons (principal) ==

== ENCOUNTER → 2021-02-13 | Outpatient (CLI) | payer OTHER | LOC: M LABSMTC 11:14 | PROVIDERS: ATTEND Anesthesiology | DX: Z01.812 Encounter for preprocedural laboratory examination (principal); Z20.822 Contact with and (suspected) exposure to COVID-19 ==

== ENCOUNTER → 2021-02-18 | Outpatient (CLI) | payer OTHER ==
[~2021-02-18] MED LIST changes: +BUPIVACAINE HCL 0.25% 10ML VIAL As Ordered ONE; +BUPIVACAINE HCL 0.25% 30ML VIAL As Ordered ONE; +TRIAMCINOLONE ACETONIDE SUSP 40 MG/ML VIAL (J3301) As Ordered ONE; +diazePAM 5MG TABLET As Ordered ONE; +oxyCODONE 5MG TAB As Ordered ONE
== END ==
LOC: M PAIN 10:00
PROVIDERS: ATTEND Anesthesiology
DX: M79.18 Myalgia, other site (principal); I10 Essential (primary) hypertension; E78.5 Hyperlipidemia, unspecified; F32.A Depression, unspecified; F41.9 Anxiety disorder, unspecified; Z87.820 Personal history of traumatic brain injury; E11.9 Type 2 diabetes mellitus without complications; E66.01 Morbid (severe) obesity due to excess calories; E55.9 Vitamin D deficiency, unspecified; D50.9 Iron deficiency anemia, unspecified; G47.33 Obstructive sleep apnea (adult) (pediatric); M54.50 Low back pain, unspecified; G20 Parkinson's disease; Z87.891 Personal history of nicotine dependence; Z68.42 Body mass index [BMI] 45.0-49.9, adult; Z79.84 Long term (current) use of oral hypoglycemic drugs; Z79.1 Long term (current) use of non-steroidal anti-inflammatories (NSAID); Z79.899 Other long term (current) drug therapy
CPT/HCPCS: 20552; J3301

== ENCOUNTER → 2021-03-25 | Outpatient (CLI) | payer OTHER ==
[~2021-03-25] MED LIST changes: -BUPIVACAINE HCL 0.25% 10ML VIAL As Ordered ONE; -BUPIVACAINE HCL 0.25% 30ML VIAL As Ordered ONE; -TRIAMCINOLONE ACETONIDE SUSP 40 MG/ML VIAL (J3301) As Ordered ONE; -diazePAM 5MG TABLET As Ordered ONE; -oxyCODONE 5MG TAB As Ordered ONE
== END ==
LOC: M PAIN 09:30
PROVIDERS: ATTEND Nurse Practitioner Family
DX: G89.29 Other chronic pain (principal); M79.10 Myalgia, unspecified site; E11.9 Type 2 diabetes mellitus without complications; G47.33 Obstructive sleep apnea (adult) (pediatric); E55.9 Vitamin D deficiency, unspecified; Z86.59 Personal history of other mental and behavioral disorders; Z87.820 Personal history of traumatic brain injury; Z87.891 Personal history of nicotine dependence; E66.01 Morbid (severe) obesity due to excess calories; Z68.42 Body mass index [BMI] 45.0-49.9, adult; Z79.84 Long term (current) use of oral hypoglycemic drugs; Z79.899 Other long term (current) drug therapy

== ENCOUNTER → 2021-05-08 | Outpatient (REF) | payer MEDICARE, OTHER ==
[2021-05-08 13:48] LABS: HEMOGLOBIN A1c 7.2 %
[2021-05-08 13:52] LABS: ALBUMIN 3.6 GM/DL (3.2-5.2); ALT/SGPT 36 U/L (12-78); BILIRUBIN,TOTAL 0.2 MG/DL (0.2-1.0); BLOOD UREA NITROGEN 11 MG/DL (7-18); CALCIUM LEVEL 9.3 MG/DL (8.5-10.1); CARBON DIOXIDE LEVEL 27 MEQ/L (21-32); CHLORIDE LEVEL 112 MEQ/L (98-107); GLOMERULAR FILTRATION RATE > 60.0 (>56); GLUCOSE, FASTING 199 MG/DL (70-100); SODIUM LEVEL 144 MEQ/L (136-145); TOTAL PROTEIN 7.2 GM/DL (6.4-8.2)
== END ==
LOC: M SFHCADAM 10:37
PROVIDERS: ATTEND Physician Assistant Medical
DX: E11.9 Type 2 diabetes mellitus without complications (principal)

== ENCOUNTER → 2021-08-07 | Outpatient (CLI) | payer MEDICARE ==
[2021-08-07 13:24] LABS: ALBUMIN 3.4 GM/DL (3.2-5.2); BLOOD UREA NITROGEN 11 MG/DL (7-18); CALCIUM LEVEL 9.4 MG/DL (8.5-10.1); CARBON DIOXIDE LEVEL 29 MEQ/L (21-32); CHLORIDE LEVEL 108 MEQ/L (98-107); CREATININE FOR GFR 0.84 MG/DL (0.70-1.30); GLOMERULAR FILTRATION RATE > 60.0 (>56); GLUCOSE, FASTING 133 MG/DL (70-100); PHOSPHORUS LEVEL 3.1 MG/DL (2.5-4.9); POTASSIUM SERUM 4.1 MEQ/L (3.5-5.1); SODIUM LEVEL 143 MEQ/L (136-145)
[2021-08-07 14:23] LABS: MAU/CREAT RATIO 316.6 MCG/MG (0.0-30.0)
== END ==
LOC: M LAB 11:54
PROVIDERS: ATTEND Internal Medicine Cardiovascular Disease
DX: I10 Essential (primary) hypertension (principal)

== ENCOUNTER → 2021-08-13 | Outpatient (CLI) | payer OTHER | LOC: M PAIN 09:45 | PROVIDERS: ATTEND Nurse Practitioner Family | DX: M79.10 Myalgia, unspecified site (principal); G89.29 Other chronic pain; E11.9 Type 2 diabetes mellitus without complications; G47.33 Obstructive sleep apnea (adult) (pediatric); E55.9 Vitamin D deficiency, unspecified; G20 Parkinson's disease; Z86.59 Personal history of other mental and behavioral disorders; Z87.820 Personal history of traumatic brain injury; Z87.891 Personal history of nicotine dependence; E66.01 Morbid (severe) obesity due to excess calories; Z68.42 Body mass index [BMI] 45.0-49.9, adult; Z79.84 Long term (current) use of oral hypoglycemic drugs; Z79.899 Other long term (current) drug therapy ==

== ENCOUNTER → 2021-08-27 | Outpatient (REF) | payer MEDICARE | LOC: M LAB REF 09:26 | PROVIDERS: ATTEND Internal Medicine Cardiovascular Disease | DX: I10 Essential (primary) hypertension (principal) ==

== ENCOUNTER → 2021-08-28 | Outpatient (CLI) | payer MEDICARE | LOC: M RAD 07:43 | PROVIDERS: ATTEND Internal Medicine Cardiovascular Disease | DX: I10 Essential (primary) hypertension (principal); N13.30 Unspecified hydronephrosis; N28.1 Cyst of kidney, acquired; R14.3 Flatulence ==

== ENCOUNTER → 2021-09-11 | Outpatient (CLI) | payer MEDICARE ==
[2021-09-11 16:51] LABS: BLOOD UREA NITROGEN 16 MG/DL (7-18); CALCIUM LEVEL 9.8 MG/DL (8.5-10.1); CARBON DIOXIDE LEVEL 31 MEQ/L (21-32); CHLORIDE LEVEL 101 MEQ/L (98-107); CREATININE FOR GFR 1.03 MG/DL (0.70-1.30); GLOMERULAR FILTRATION RATE > 60.0 (>56); GLUCOSE, FASTING 143 MG/DL (70-100); POTASSIUM SERUM 3.4 MEQ/L (3.5-5.1); SODIUM LEVEL 139 MEQ/L (136-145)
== END ==
LOC: M ADAMS 11:51
PROVIDERS: ATTEND Internal Medicine Cardiovascular Disease
DX: I10 Essential (primary) hypertension (principal)

== ENCOUNTER → 2021-10-02 | Outpatient (CLI) | payer MEDICARE ==
[~2021-10-02] MED LIST changes: +ISOVUE-370 76% 100ML VIAL As Ordered ONE
== END ==
LOC: M RAD 13:50
PROVIDERS: ATTEND Nurse Practitioner Women's Health
DX: Q61.00 Congenital renal cyst, unspecified (principal); N13.30 Unspecified hydronephrosis
CPT/HCPCS: 74178; Q9967

== ENCOUNTER → 2021-10-06 | Outpatient (CLI) | payer MEDICARE, OTHER ==
[~2021-10-06] MED LIST changes: +AMLO2.5T3; +B-12100011 SL; +CARV25TA; +CHLO125TA; +FENO145T7; +FLAX1300 PO; -ISOVUE-370 76% 100ML VIAL As Ordered ONE; +LORA-674; +LOSA100T45; +METF500T13; +PARO40TA2; +POTA1TAB23; +PRED1SUS2; +PREDOPD; +RA M500C PO; +RA T500C2 PO; +VITA-199 PO; +ZONI100C67
== END ==
LOC: M LABSMTC 10:28
PROVIDERS: ATTEND Anesthesiology
DX: Z01.812 Encounter for preprocedural laboratory examination (principal); Z20.822 Contact with and (suspected) exposure to COVID-19

== ENCOUNTER 2021-10-10 09:15 | Day surgery (SDC) | payer MEDICARE ==
[~2021-10-10] VITALS: Ht 177.8 cm; Wt 143.3 kg
[~2021-10-10 09:15] MED LIST changes: +NS 1,000 ML IV ONE
[2021-10-10] MEDS ORDERED: LIDOCAINE 2% 100MG/5ML SDV (FOR ANES.) As Ordered ONE (10:50)
[2021-10-10] MEDS ORDERED: propofoL 200 MG/20 ML VIAL As Ordered ONE ×3 (10:50→11:26)
[2021-10-10] MEDS ORDERED: GLUCAGON INJ 1MG VIAL As Ordered ONE (11:23)
[2021-10-10 11:50] VITALS: BP 160/85
== END 2021-10-10 12:06 | disposition home or self-care (01) ==
LOC: M OPP 09:15
PROVIDERS: ATTEND Internal Medicine Gastroenterology
DX: Z12.11 Encounter for screening for malignant neoplasm of colon (principal); Z86.010 Personal history of colon polyps; K64.8 Other hemorrhoids; I10 Essential (primary) hypertension; E78.5 Hyperlipidemia, unspecified; R60.0 Localized edema; E11.9 Type 2 diabetes mellitus without complications; J45.909 Unspecified asthma, uncomplicated; M19.90 Unspecified osteoarthritis, unspecified site; F41.9 Anxiety disorder, unspecified; F32.A Depression, unspecified; G43.909 Migraine, unspecified, not intractable, without status migrainosus; F43.10 Post-traumatic stress disorder, unspecified; G47.30 Sleep apnea, unspecified; Z87.820 Personal history of traumatic brain injury; Z79.84 Long term (current) use of oral hypoglycemic drugs; Z79.899 Other long term (current) drug therapy; Z83.79 Family history of other diseases of the digestive system
CPT/HCPCS: G0105; J1610

== ENCOUNTER → 2021-11-06 | Outpatient (REF) | payer MEDICARE, OTHER ==
[~2021-11-06] MED LIST changes: +ERGO500029; -NS 1,000 ML IV ONE
[2021-11-06 13:54] LABS: HEMATOCRIT 41.1 % (42.0-52.0); HEMOGLOBIN 13.2 g/dl (13.5-17.5); MEAN CORPUSCULAR HEMOGLOBIN 25.7 pg (27.0-33.0); MEAN CORPUSCULAR HGB CONC 32.1 g/dl (32.0-36.5); PLATELET COUNT, AUTOMATED 352 10^3/uL (150-450); RED BLOOD COUNT 5.14 10^6/uL (4.30-6.10); WHITE BLOOD COUNT 8.4 10^3/uL (4.0-10.0)
[2021-11-06 14:05] LABS: INR 1.02; PROTHROMBIN TIME 13.8 SECONDS (12.7-14.5)
[2021-11-06 14:23] LABS: BLOOD UREA NITROGEN 18 MG/DL (7-18); CALCIUM LEVEL 9.6 MG/DL (8.5-10.1); CARBON DIOXIDE LEVEL 29 MEQ/L (21-32); CHLORIDE LEVEL 103 MEQ/L (98-107); CREATININE FOR GFR 1.07 MG/DL (0.70-1.30); GLOMERULAR FILTRATION RATE > 60.0 (>56); GLUCOSE, FASTING 140 MG/DL (70-100); POTASSIUM SERUM 3.6 MEQ/L (3.5-5.1); SODIUM LEVEL 138 MEQ/L (136-145)
== END ==
LOC: M PLALAB 13:02 → M LABDRWAD 13:02
PROVIDERS: ATTEND Urology
DX: N13.30 Unspecified hydronephrosis (principal)

== ENCOUNTER → 2021-11-11 | Outpatient (REF) | payer MEDICARE, OTHER ==
[2021-11-11 12:45] LABS: ALBUMIN 3.6 GM/DL (3.2-5.2); BLOOD UREA NITROGEN 24 MG/DL (7-18); CALCIUM LEVEL 9.6 MG/DL (8.5-10.1); CARBON DIOXIDE LEVEL 30 MEQ/L (21-32); CHLORIDE LEVEL 103 MEQ/L (98-107); CREATININE FOR GFR 1.22 MG/DL (0.70-1.30); GLOMERULAR FILTRATION RATE > 60.0 (>56); GLUCOSE, FASTING 243 MG/DL (70-100); PHOSPHORUS LEVEL 1.7 MG/DL (2.5-4.9); POTASSIUM SERUM 3.3 MEQ/L (3.5-5.1); SODIUM LEVEL 139 MEQ/L (136-145)
[2021-11-11 12:57] LABS: MALB URINE SIEMENS 38.1 MG/L; MAU/CREAT RATIO 23.5 MCG/MG (0.0-30.0)
== END ==
LOC: M LAB REF 11:42
PROVIDERS: ATTEND Internal Medicine Cardiovascular Disease
DX: I10 Essential (primary) hypertension (principal)

== ENCOUNTER → 2021-11-16 | Outpatient (CLI) | payer MEDICARE | LOC: M LABSMTC 09:18 | PROVIDERS: ATTEND Anesthesiology | DX: Z01.818 Encounter for other preprocedural examination (principal); Z11.52 Encounter for screening for COVID-19 ==

== ENCOUNTER → 2021-11-18 | Outpatient (CLI) | payer MEDICARE ==
[~2021-11-18] MED LIST changes: +BACT800T5 PO; +HYDR-3713 PO; +OXYB5TAB10 PO; +PYRI1TAB5 PO
== END ==
LOC: M ADAMS 09:28
PROVIDERS: ATTEND Urology
DX: N13.30 Unspecified hydronephrosis (principal)

== ENCOUNTER 2021-11-20 07:57 | Day surgery (SDC) | payer MEDICARE ==
[~2021-11-20] VITALS: Ht 177.8 cm; Wt 131.3 kg
[~2021-11-20 07:57] MED LIST changes: -BACT800T5 PO; -HYDR-3713 PO; -OXYB5TAB10 PO; -PYRI1TAB5 PO
[2021-11-20] MEDS ORDERED: LR 1,000 ML IV SCH ×3 (08:00→13:35)
[2021-11-20] MEDS ORDERED: CARVedilol 12.5 MG TAB PO STA (08:46)
[2021-11-20 09:18] VITALS: BP 138/87
[2021-11-20] MEDS ORDERED: ceFAZolin SOD 1 GM in D5W MINI-BAG PLUS 50 ML IV ONE (09:45)
[2021-11-20] MEDS ORDERED: ceFAZolin SOD 2 GM in IV 1 EA IV ONE (09:45)
[2021-11-20] MEDS ORDERED: ISOVUE-300 61% 50ML VIAL As Ordered ONE (10:23)
[2021-11-20] MEDS ORDERED: fentaNYL 100 MCG/2 ML INJECTION As Ordered ONE (10:57)
[2021-11-20] MEDS ORDERED: ACETAMINOPHEN 1000MG 100ML IV BTL (OFIRMEV) (J0131 PER 10MG) As Ordered ONE (10:57)
[2021-11-20] MEDS ORDERED: ONDANSETRON 4MG 2ML VIAL As Ordered ONE (10:57)
[2021-11-20] MEDS ORDERED: propofoL 200 MG/20 ML VIAL As Ordered ONE (10:58)
[2021-11-20] MEDS ORDERED: MIDAZOLAM INJ 2MG/2ML VIAL (J2250 PER 1MG) As Ordered ONE (10:58)
[2021-11-20] MEDS ORDERED: ePHEDrine SULFATE 25 MG/5 ML(5MG/ML) SYRINGE As Ordered ONE (12:01)
[2021-11-20] MEDS ORDERED: ONDANSETRON 4MG 2ML VIAL IV PRN (12:25)
[2021-11-20] MEDS ORDERED: oxyCODONE 5MG TAB PO PRN (12:25)
[2021-11-20] MEDS ORDERED: fentaNYL 100 MCG/2 ML INJECTION IV PRN (12:25)
[2021-11-20] MEDS ORDERED: PYRI1TAB5 PO (12:27)
[2021-11-20] MEDS ORDERED: HYDR-3713 PO (12:27)
[2021-11-20] MEDS ORDERED: OXYB5TAB10 PO (12:27)
[2021-11-20] MEDS ORDERED: BACT800T5 PO (12:27)
[2021-11-20 14:15] VITALS: BP 137/69
[2021-11-26 14:11] LABS: CA Oxalate Dihy 10 % (.); Ca Ox Monohydrate 85 % (.); Size 4x3 mm (.)
== END 2021-11-20 14:15 | disposition home or self-care (01) ==
LOC: M SDC 07:57
PROVIDERS: ATTEND Urology
DX: N13.0 Hydronephrosis with ureteropelvic junction obstruction (principal); E11.9 Type 2 diabetes mellitus without complications; I10 Essential (primary) hypertension; E78.5 Hyperlipidemia, unspecified; D64.9 Anemia, unspecified; G47.33 Obstructive sleep apnea (adult) (pediatric); G43.909 Migraine, unspecified, not intractable, without status migrainosus; F43.10 Post-traumatic stress disorder, unspecified; F41.9 Anxiety disorder, unspecified; F32.A Depression, unspecified; Z79.84 Long term (current) use of oral hypoglycemic drugs; Z79.899 Other long term (current) drug therapy
CPT/HCPCS: 52356; 74420; 82365; C1769; C2617; J0131; J0690; J2250; J2405; J3010; Q9967

== ENCOUNTER → 2021-12-17 | Outpatient (CLI) | payer MEDICARE ==
[~2021-12-17] MED LIST changes: -AMLO2.5T3; +AMLO2.5T3 PO; +B-12100011 PO; -B-12100011 SL; +BACT800T5 PO; -CARV25TA; +CARV25TA PO; -CHLO125TA; +CHLO125TA PO; -FENO145T7; +FENO145T7 PO; +HYDR-3713 PO; -LORA-674; +LORA-674 PO; -LOSA100T45; +LOSA100T45 PO; -METF500T13; +METF500T13 PO; +OXYB5TAB10 PO; -PARO40TA2; +PARO40TA2 PO; -POTA1TAB23; +POTA1TAB23 PO; -PREDOPD; +PREDOPD OS; +PRESCAP PO; +PYRI1TAB5 PO; -ZONI100C67; +ZONI100C67 PO
== END ==
LOC: M PAIN 10:45
PROVIDERS: ATTEND Nurse Practitioner Family
DX: M79.10 Myalgia, unspecified site (principal); M54.50 Low back pain, unspecified; G89.29 Other chronic pain; E11.9 Type 2 diabetes mellitus without complications; I10 Essential (primary) hypertension; E55.9 Vitamin D deficiency, unspecified; G47.33 Obstructive sleep apnea (adult) (pediatric); G20 Parkinson's disease; Z86.59 Personal history of other mental and behavioral disorders; Z87.820 Personal history of traumatic brain injury; Z87.891 Personal history of nicotine dependence; E66.01 Morbid (severe) obesity due to excess calories; Z68.42 Body mass index [BMI] 45.0-49.9, adult; Z79.84 Long term (current) use of oral hypoglycemic drugs; Z79.899 Other long term (current) drug therapy

== ENCOUNTER → 2021-12-18 | Outpatient (CLI) | payer MEDICARE ==
[~2021-12-18] MED LIST changes: +AMLO2.5T3; -AMLO2.5T3 PO; -B-12100011 PO; +B-12100011 SL; +CARV25TA; -CARV25TA PO; +CHLO125TA; -CHLO125TA PO; +FENO145T7; -FENO145T7 PO; +LORA-674; -LORA-674 PO; +LOSA100T45; -LOSA100T45 PO; +METF500T13; -METF500T13 PO; +PARO40TA2; -PARO40TA2 PO; +POTA1TAB23; -POTA1TAB23 PO; +PREDOPD; -PREDOPD OS; -PRESCAP PO; +ZONI100C67; -ZONI100C67 PO
[2021-12-18 15:45] LABS: HEMATOCRIT 38.4 % (42.0-52.0); HEMOGLOBIN 12.4 g/dl (13.5-17.5); MEAN CORPUSCULAR HEMOGLOBIN 25.9 pg (27.0-33.0); MEAN CORPUSCULAR HGB CONC 32.3 g/dl (32.0-36.5); MEAN CORPUSCULAR VOLUME 80.3 fl (80.0-96.0); PLATELET COUNT, AUTOMATED 371 10^3/uL (150-450); RED BLOOD COUNT 4.78 10^6/uL (4.30-6.10); WHITE BLOOD COUNT 8.6 10^3/uL (4.0-10.0)
[2021-12-18 17:21] LABS: CALCIUM LEVEL 9.5 MG/DL (8.5-10.1); CREATININE FOR GFR 1.52 MG/DL (0.70-1.30); GLOMERULAR FILTRATION RATE 50.9 (>56); POTASSIUM SERUM 3.6 MEQ/L (3.5-5.1)
== END ==
LOC: M LABDRWAD 13:54
PROVIDERS: ATTEND Urology
DX: Z96.0 Presence of urogenital implants (principal)

== ENCOUNTER → 2021-12-21 | Outpatient (CLI) | payer MEDICARE | LOC: M LABSMTC 11:30 | PROVIDERS: ATTEND Anesthesiology | DX: Z01.812 Encounter for preprocedural laboratory examination (principal); Z11.52 Encounter for screening for COVID-19 ==

== ENCOUNTER 2021-12-25 07:06 | Day surgery (SDC) | payer MEDICARE ==
[~2021-12-25] VITALS: Ht 175.3 cm; Wt 142.9 kg
[~2021-12-25 07:06] MED LIST changes: -AMLO2.5T3; +AMLO2.5T3 PO; +B-12100011 PO; -B-12100011 SL; -CARV25TA; +CARV25TA PO; -CHLO125TA; +CHLO125TA PO; -FENO145T7; +FENO145T7 PO; -LORA-674; +LORA-674 PO; -LOSA100T45; +LOSA100T45 PO; -METF500T13; +METF500T13 PO; -PARO40TA2; +PARO40TA2 PO; -POTA1TAB23; +POTA1TAB23 PO; -PREDOPD; +PREDOPD OS; +PRESCAP PO; -ZONI100C67; +ZONI100C67 PO
[2021-12-25] MEDS ORDERED: INSULIN LISPRO (NovoLOG) PER UNIT SC PRN (07:25)
[2021-12-25] MEDS ORDERED: LR 1,000 ML IV SCH (07:25)
[2021-12-25] MEDS ORDERED: LIDOCAINE 2% 100MG/5ML SDV (FOR ANES.) As Ordered ONE (07:41)
[2021-12-25] MEDS ORDERED: fentaNYL 100 MCG/2 ML INJECTION As Ordered ONE (07:41)
[2021-12-25] MEDS ORDERED: propofoL 200 MG/20 ML VIAL As Ordered ONE ×2 (07:41→08:47)
[2021-12-25] MEDS ORDERED: MIDAZOLAM INJ 2MG/2ML VIAL (J2250 PER 1MG) As Ordered ONE (07:41)
[2021-12-25] MEDS ORDERED: ceFAZolin 1GM VIAL (J0690 PER 500MG) As Ordered ONE (08:04)
[2021-12-25] MEDS ORDERED: ceFAZolin 2 GM/D5W 50 ML IV BAG (J0690 PER 500MG) As Ordered ONE (08:04)
[2021-12-25] MEDS ORDERED: ceFAZolin SOD 2 GM in IV 1 EA IV ONE (08:20)
[2021-12-25] MEDS ORDERED: ceFAZolin SOD 1 GM in D5W MINI-BAG PLUS 50 ML IV ONE (08:20)
[2021-12-25] MEDS ORDERED: BACT800T5 PO (08:50)
[2021-12-25] MEDS ORDERED: HYDR-3713 PO (08:50)
[2021-12-25 09:10] VITALS: BP 101/58
== END 2021-12-25 09:38 | disposition home or self-care (01) ==
LOC: M SDC 07:06
PROVIDERS: ATTEND Urology
DX: N20.1 Calculus of ureter (principal); E78.5 Hyperlipidemia, unspecified; E11.9 Type 2 diabetes mellitus without complications; I10 Essential (primary) hypertension; F43.10 Post-traumatic stress disorder, unspecified; Z87.891 Personal history of nicotine dependence; G47.33 Obstructive sleep apnea (adult) (pediatric); Z79.899 Other long term (current) drug therapy; F41.9 Anxiety disorder, unspecified; F32.A Depression, unspecified; G43.909 Migraine, unspecified, not intractable, without status migrainosus; Z79.84 Long term (current) use of oral hypoglycemic drugs
CPT/HCPCS: 50590; 74018; J0690; J2250; J3010

== ENCOUNTER → 2022-01-01 | Outpatient (CLI) | payer MEDICARE | LOC: M RAD 12:02 | PROVIDERS: ATTEND Urology | DX: N20.0 Calculus of kidney (principal) ==

== ENCOUNTER → 2022-01-13 | Outpatient (REF) | payer MEDICARE | LOC: M SMT 15:36 | PROVIDERS: ATTEND Nurse Practitioner Women's Health | DX: N20.0 Calculus of kidney (principal) ==

== ENCOUNTER → 2022-01-27 | Outpatient (CLI) | payer OTHER, MEDICARE | LOC: M PAIN 10:00 | PROVIDERS: ATTEND Nurse Practitioner Family | DX: M79.10 Myalgia, unspecified site (principal); G89.29 Other chronic pain; E11.9 Type 2 diabetes mellitus without complications; I10 Essential (primary) hypertension; E55.9 Vitamin D deficiency, unspecified; G47.33 Obstructive sleep apnea (adult) (pediatric); G20 Parkinson's disease; Z86.59 Personal history of other mental and behavioral disorders; Z87.820 Personal history of traumatic brain injury; Z87.891 Personal history of nicotine dependence; Z79.84 Long term (current) use of oral hypoglycemic drugs; Z79.899 Other long term (current) drug therapy ==

== ENCOUNTER → 2022-02-18 | Outpatient (REF) | payer MEDICARE ==
[~2022-02-18] MED LIST changes: -PAXI20TA29 PO; +PAXI20TA30 PO
[2022-02-18 14:19] LABS: BASO # 0.1 10^3/uL (0.0-0.2); BASO % 0.7 % (0.0-1.0); EOS # 0.3 10^3/uL (0.0-0.5); HEMATOCRIT 41.5 % (42.0-52.0); HEMOGLOBIN 12.9 g/dl (13.5-17.5); LYMPH # 2.4 10^3/uL (1.5-5.0); LYMPH % 26.9 % (24.0-44.0); MEAN CORPUSCULAR HEMOGLOBIN 25.3 pg (27.0-33.0); MEAN CORPUSCULAR HGB CONC 31.1 g/dl (32.0-36.5); MEAN CORPUSCULAR VOLUME 81.5 fl (80.0-96.0); MONO # 0.6 10^3/uL (0.0-0.8); MONO % 6.5 % (2.0-8.0); NEUTROPHILS # 5.5 10^3/uL (1.5-8.5); NEUTROPHILS % 62.6 % (36.0-66.0); PLATELET COUNT, AUTOMATED 368 10^3/uL (150-450); RED BLOOD COUNT 5.09 10^6/uL (4.30-6.10); WHITE BLOOD COUNT 8.7 10^3/uL (4.0-10.0)
[2022-02-18 15:03] LABS: ALBUMIN 3.6 G/DL (3.2-5.2); ALKALINE PHOSPHATASE 101 U/L (46-116); ALT/SGPT 22 U/L (7.0-40); AST/SGOT 18 U/L (<34); BILIRUBIN,TOTAL 0.4 MG/DL (0.3-1.2); BLOOD UREA NITROGEN 13 MG/DL (9-23); CALCIUM LEVEL 9.4 MG/DL (8.5-10.1); CARBON DIOXIDE LEVEL 27 MMOL/L (20-31); CHLORIDE LEVEL 103 MMOL/L (98-107); CREATININE FOR GFR 0.77 MG/DL (0.70-1.30); GLOMERULAR FILTRATION RATE > 60.0 (>56); GLUCOSE, FASTING 162 MG/DL (60-100); POTASSIUM SERUM 3.9 MMOL/L (3.5-5.1); SODIUM LEVEL 140 MMOL/L (136-145); TOTAL PROTEIN 7.5 G/DL (5.7-8.2)
== END ==
LOC: M LABDRWAD 12:49
PROVIDERS: ATTEND Internal Medicine Hematology & Oncology
DX: I10 Essential (primary) hypertension (principal)

== ENCOUNTER → 2022-02-18 | Outpatient (REF) | payer MEDICARE ==
[2022-02-18 15:15] LABS: CREATININE, URINE 159.6 MG/DL; MAU/CREAT RATIO 41.3 MCG/MG (0.0-30.0)
[2022-02-18 15:18] LABS: THYROID STIMULATING HORMONE 4.051 uIU/ML (0.55-4.78)
[2022-02-18 15:19] LABS: ALBUMIN 3.4 G/DL (3.2-5.2); ALKALINE PHOSPHATASE 102 U/L (46-116); ALT/SGPT 24 U/L (7.0-40); AST/SGOT 18 U/L (<34); BILIRUBIN,TOTAL 0.4 MG/DL (0.3-1.2); BLOOD UREA NITROGEN 13 MG/DL (9-23); CALCIUM LEVEL 8.7 MG/DL (8.5-10.1); CARBON DIOXIDE LEVEL 27 MMOL/L (20-31); CHLORIDE LEVEL 104 MMOL/L (98-107); CHOLESTEROL LEVEL 162 MG/DL (<200); CHOLESTEROL RISK RATIO 4.25 (<5); CREATININE FOR GFR 0.75 MG/DL (0.70-1.30); GLOMERULAR FILTRATION RATE > 60.0 (>56); GLUCOSE, FASTING 162 MG/DL (60-100); HDL CHOLESTEROL 38.1 MG/DL (>40); LDL CHOLESTEROL 84.1 MG/DL (<100); NON-HDL-C 124 MG/DL; POTASSIUM SERUM 3.8 MMOL/L (3.5-5.1); SODIUM LEVEL 140 MMOL/L (136-145); TOTAL PROTEIN 7.4 G/DL (5.7-8.2); TRIGLYCERIDES LEVEL 199 MG/DL (<150)
== END ==
LOC: M SFHCADAM 10:12
PROVIDERS: ATTEND Physician Assistant Medical
DX: E11.9 Type 2 diabetes mellitus without complications (principal); E78.2 Mixed hyperlipidemia; E55.9 Vitamin D deficiency, unspecified; Z79.899 Other long term (current) drug therapy

== ENCOUNTER → 2022-03-12 | Outpatient (CLI) | payer OTHER, MEDICARE | LOC: M LABSMTC 09:20 | PROVIDERS: ATTEND Anesthesiology | DX: Z01.812 Encounter for preprocedural laboratory examination (principal); Z20.822 Contact with and (suspected) exposure to COVID-19 ==

== ENCOUNTER → 2022-03-17 | Outpatient (CLI) | payer OTHER ==
[~2022-03-17] MED LIST changes: +BUPIVACAINE HCL 0.25% 10ML VIAL As Ordered ONE; +BUPIVACAINE HCL 0.25% 30ML VIAL As Ordered ONE; +TRIAMCINOLONE ACETONIDE SUSP 40MG/ML 1ML VIAL As Ordered ONE; +diazePAM 5MG TABLET As Ordered ONE; +oxyCODONE 5MG TAB As Ordered ONE
== END ==
LOC: M PAIN 15:00
PROVIDERS: ATTEND Anesthesiology
DX: M79.10 Myalgia, unspecified site (principal); G89.29 Other chronic pain; E11.9 Type 2 diabetes mellitus without complications; G47.33 Obstructive sleep apnea (adult) (pediatric); I10 Essential (primary) hypertension; E55.9 Vitamin D deficiency, unspecified; G20 Parkinson's disease; Z86.59 Personal history of other mental and behavioral disorders; Z87.820 Personal history of traumatic brain injury; Z87.891 Personal history of nicotine dependence; E66.01 Morbid (severe) obesity due to excess calories; Z68.42 Body mass index [BMI] 45.0-49.9, adult; Z79.84 Long term (current) use of oral hypoglycemic drugs; Z79.899 Other long term (current) drug therapy

== ENCOUNTER → 2022-04-09 | Outpatient (CLI) | payer OTHER ==
[~2022-04-09] MED LIST changes: -BUPIVACAINE HCL 0.25% 10ML VIAL As Ordered ONE; -BUPIVACAINE HCL 0.25% 30ML VIAL As Ordered ONE; -TRIAMCINOLONE ACETONIDE SUSP 40MG/ML 1ML VIAL As Ordered ONE; -diazePAM 5MG TABLET As Ordered ONE; -oxyCODONE 5MG TAB As Ordered ONE
== END ==
LOC: M PAIN 10:15
PROVIDERS: ATTEND Nurse Practitioner Family
DX: M79.10 Myalgia, unspecified site (principal); G89.29 Other chronic pain; G89.28 Other chronic postprocedural pain; E11.9 Type 2 diabetes mellitus without complications; I10 Essential (primary) hypertension; G47.33 Obstructive sleep apnea (adult) (pediatric); G20 Parkinson's disease; E55.9 Vitamin D deficiency, unspecified; Z86.59 Personal history of other mental and behavioral disorders; Z87.820 Personal history of traumatic brain injury; Z87.891 Personal history of nicotine dependence; E66.01 Morbid (severe) obesity due to excess calories; Z68.42 Body mass index [BMI] 45.0-49.9, adult; Z79.84 Long term (current) use of oral hypoglycemic drugs; Z79.899 Other long term (current) drug therapy

== ENCOUNTER 2022-06-21 11:47 | Inpatient (IN) | payer MEDICARE, OTHER ==
[~2022-06-21] VITALS: Ht 175.3 cm; Wt 142.9 kg
[~2022-06-21 11:47] MED LIST changes: -OFLO3OPSO OS; +OFLO5DRO OS
[2022-06-21] MEDS ORDERED: NS 1,000 ML IV ONE ×2 (13:20→14:45)
[2022-06-21 14:12] LABS: BASO % 0.3 % (0.0-1.0); EOS # 0.2 10^3/uL (0.0-0.5); EOS % 2.6 % (0.0-3.0); HEMATOCRIT 39.8 % (42.0-52.0); HEMOGLOBIN 12.9 g/dl (13.5-17.5); LYMPH # 2.6 10^3/uL (1.5-5.0); LYMPH % 28.4 % (24.0-44.0); MEAN CORPUSCULAR HEMOGLOBIN 26.1 pg (27.0-33.0); MEAN CORPUSCULAR HGB CONC 32.4 g/dl (32.0-36.5); MEAN CORPUSCULAR VOLUME 80.6 fl (80.0-96.0); MONO # 0.5 10^3/uL (0.0-0.8); MONO % 5.9 % (2.0-8.0); NEUTROPHILS # 5.8 10^3/uL (1.5-8.5); NEUTROPHILS % 62.5 % (36.0-66.0); PLATELET COUNT, AUTOMATED 320 10^3/uL (150-450); RED BLOOD COUNT 4.94 10^6/uL (4.30-6.10); WHITE BLOOD COUNT 9.2 10^3/uL (4.0-10.0)
[2022-06-21 14:27] LABS: ERYTHROCYTE SEDIMENTATION RATE 38 mm/hr (0-20)
[2022-06-21 14:35] LABS: C REACTIVE PROTEIN QUANTITATIV 3.2 MG/DL (<1.0)
[2022-06-21 14:36] LABS: ALBUMIN 3.4 G/DL (3.2-5.2); BILIRUBIN,DIRECT 0.1 MG/DL (<0.4); BILIRUBIN,TOTAL 0.3 MG/DL (0.3-1.2); TOTAL PROTEIN 7.3 G/DL (5.7-8.2)
[2022-06-21 14:44] LABS: RSV AMPLIFICATION NEGATIVE (NEGATIVE)
[2022-06-21] MEDS ORDERED: VANCOMYCIN HCL 2,000 MG in IV FLUID PLACE HOLDER 1 EA IV ONE (14:45)
[2022-06-21] MEDS ORDERED: ISOVUE-370 76% 100ML VIAL As Ordered ONE (14:56)
[2022-06-21] MEDS ORDERED: VANCOMYCIN HCL 1,000 MG, VIAL MATE ADAPTER 1 EACH in NS 250 ML IV ONE ×2 (15:00→16:00)
[2022-06-21] MEDS ORDERED: MOM 30ML SUSPENSION UDC PO PRN (17:10)
[2022-06-21] MEDS ORDERED: ACETAMINOPHEN TAB 650MG DOSE (2X325MG) PO PRN (17:10)
[2022-06-21] MEDS ORDERED: GLUCOSE 4GM CHEW TABLET PO PRN (17:20)
[2022-06-21] MEDS ORDERED: DEXTROSE 50% 50ML SYRINGE IV PRN (17:20)
[2022-06-21] MEDS ORDERED: GLUCAGON INJ 1MG VIAL SC PRN (17:20)
[2022-06-21] MEDS ORDERED: VANCOMYCIN HCL 2,000 MG in IV FLUID PLACE HOLDER 1 EA IV SCH (17:40)
[2022-06-21 18:00] VITALS: BP 173/86
[2022-06-21] MEDS ORDERED: B-12100020 PO (18:22)
[2022-06-21] MEDS ORDERED: AMLO1TAB24 PO (18:22)
[2022-06-21] MEDS ORDERED: TOBR0.3S37 OS (18:27)
[2022-06-21] MEDS ORDERED: HOME MED LIST COMPLETE! XX SCH (18:30)
[2022-06-21] MEDS: INSULIN LISPRO (NovoLOG) PER UNIT SC SCH ×2 (18:40→21:00)
[2022-06-21] MEDS: metroNIDAZOLE 500 MG in IV 1 EA IV SCH (18:41)
[2022-06-21 19:00] VITALS: BP 142/82
[2022-06-21] MEDS ORDERED: SUMAtriptan SUCCINATE 25 MG TAB PO PRN (19:45)
[2022-06-21 20:00] VITALS: BP 164/84
[2022-06-21] MEDS ORDERED: SODIUM CHLORIDE 0.9% 1000ML IV ONE (20:50)
[2022-06-21 21:00] LABS: INR 0.95; PROTHROMBIN TIME 12.9 SECONDS (12.5-14.5)
[2022-06-21] MEDS: DOCUSATE SODIUM 100MG CAPSULE PO SCH (21:00)
[2022-06-21] MEDS: VANCOMYCIN HCL 1,000 MG, VIAL MATE ADAPTER 1 EACH in D5W 250 ML IV SCH (21:34)
[2022-06-21] MEDS: CARVedilol 12.5 MG TAB PO SCH (21:42)
[2022-06-21] MEDS: LOSARTAN 50MG TABLET PO SCH (21:42)
[2022-06-21] MEDS: PARoxetine 20MG TABLET PO SCH (21:43)
[2022-06-21] MEDS: ENOXAPARIN 40MG/0.4ML SYRINGE (J1650 PER 10MG) SC SCH (21:46)
[2022-06-21] MEDS: TOBRAMYCIN 0.3% OPHTH SOLN 5ML OS SCH (21:55)
[2022-06-21] MEDS: NS 1,000 ML IV SCH (22:44)
[2022-06-22] MEDS: metroNIDAZOLE 500 MG in IV 1 EA IV SCH ×2 (01:44→09:00)
[2022-06-22] MEDS: VANCOMYCIN HCL 1,000 MG, VIAL MATE ADAPTER 1 EACH in D5W 250 ML IV SCH ×3 (03:15→17:14)
[2022-06-22 06:00] VITALS: BP 140/80
[2022-06-22 06:20] LABS: BASO % 0.5 % (0.0-1.0); EOS # 0.3 10^3/uL (0.0-0.5); EOS % 3.5 % (0.0-3.0); HEMATOCRIT 34.6 % (42.0-52.0); LYMPH # 2.4 10^3/uL (1.5-5.0); LYMPH % 30.1 % (24.0-44.0); MEAN CORPUSCULAR HEMOGLOBIN 26.2 pg (27.0-33.0); MEAN CORPUSCULAR HGB CONC 31.8 g/dl (32.0-36.5); MEAN CORPUSCULAR VOLUME 82.4 fl (80.0-96.0); MONO # 0.5 10^3/uL (0.0-0.8); MONO % 6.3 % (2.0-8.0); NEUTROPHILS # 4.7 10^3/uL (1.5-8.5); NEUTROPHILS % 59.3 % (36.0-66.0); PLATELET COUNT, AUTOMATED 274 10^3/uL (150-450); WHITE BLOOD COUNT 7.9 10^3/uL (4.0-10.0)
[2022-06-22 06:40] LABS: BLOOD UREA NITROGEN 8 MG/DL (9-23); CALCIUM LEVEL 7.9 MG/DL (8.5-10.1); CARBON DIOXIDE LEVEL 28 MMOL/L (20-31); CHLORIDE LEVEL 107 MMOL/L (98-107); CREATININE FOR GFR 0.73 MG/DL (0.70-1.30); GLOMERULAR FILTRATION RATE > 60.0 (>56); GLUCOSE, FASTING 168 MG/DL (60-100); POTASSIUM SERUM 3.3 MMOL/L (3.5-5.1); SODIUM LEVEL 141 MMOL/L (136-145)
[2022-06-22] MEDS: NS 1,000 ML IV SCH (08:05)
[2022-06-22] MEDS: amLODIPine 5 MG TAB PO SCH (08:17)
[2022-06-22] MEDS: CHLORTHALIDONE 25 MG TAB PO SCH (08:17)
[2022-06-22] MEDS: INSULIN LISPRO (NovoLOG) PER UNIT SC SCH ×4 (08:17→21:00)
[2022-06-22] MEDS: CARVedilol 12.5 MG TAB PO SCH ×2 (08:18→21:53)
[2022-06-22] MEDS: LORATADINE 10 MG TAB PO SCH (08:18)
[2022-06-22] MEDS: FENOFIBRATE 145MG TABLET (TRICOR) PO SCH (08:18)
[2022-06-22] MEDS: POTASSIUM CHLORIDE 10MEQ SR TABLET PO SCH ×2 (08:18→10:03)
[2022-06-22] MEDS: TOBRAMYCIN 0.3% OPHTH SOLN 5ML OS SCH ×4 (08:19→21:52)
[2022-06-22] MEDS: ATORVASTATIN 20 MG TAB PO SCH (08:19)
[2022-06-22] MEDS: DOCUSATE SODIUM 100MG CAPSULE PO SCH ×2 (08:19→21:00)
[2022-06-22 14:00] VITALS: BP 140/76
[2022-06-22 18:03] LABS: HEMOGLOBIN A1c 8.4 % (4.0-6.0)
[2022-06-22 20:00] VITALS: BP 141/76
[2022-06-22] MEDS: PARoxetine 20MG TABLET PO SCH (21:49)
[2022-06-22] MEDS: ENOXAPARIN 40MG/0.4ML SYRINGE (J1650 PER 10MG) SC SCH (21:49)
[2022-06-22] MEDS: LOSARTAN 50MG TABLET PO SCH (21:54)
[2022-06-23] MEDS: VANCOMYCIN HCL 1,000 MG, VIAL MATE ADAPTER 1 EACH in D5W 250 ML IV SCH (01:34)
[2022-06-23 06:00] VITALS: BP 143/76
[2022-06-23 08:04] LABS: HEMATOCRIT 37.5 % (42.0-52.0); HEMOGLOBIN 11.9 g/dl (13.5-17.5); RED BLOOD COUNT 4.65 10^6/uL (4.30-6.10); WHITE BLOOD COUNT 8.2 10^3/uL (4.0-10.0)
[2022-06-23 08:05] LABS: BASO % 0.4 % (0.0-1.0); EOS # 0.3 10^3/uL (0.0-0.5); EOS % 3.8 % (0.0-3.0); LYMPH # 2.2 10^3/uL (1.5-5.0); LYMPH % 27.4 % (24.0-44.0); MEAN CORPUSCULAR HEMOGLOBIN 25.6 pg (27.0-33.0); MEAN CORPUSCULAR HGB CONC 31.7 g/dl (32.0-36.5); MEAN CORPUSCULAR VOLUME 80.6 fl (80.0-96.0); MONO # 0.5 10^3/uL (0.0-0.8); MONO % 6.3 % (2.0-8.0); NEUTROPHILS # 5.1 10^3/uL (1.5-8.5); NEUTROPHILS % 61.9 % (36.0-66.0); PLATELET COUNT, AUTOMATED 261 10^3/uL (150-450)
[2022-06-23 08:27] LABS: VANCOMYCIN LEVEL TROUGH 10.8 UG/ML (10.0-20.0)
[2022-06-23 08:28] LABS: BLOOD UREA NITROGEN 6 MG/DL (9-23); CALCIUM LEVEL 8.2 MG/DL (8.5-10.1); CARBON DIOXIDE LEVEL 29 MMOL/L (20-31); CHLORIDE LEVEL 104 MMOL/L (98-107); CREATININE FOR GFR 0.68 MG/DL (0.70-1.30); GLOMERULAR FILTRATION RATE > 60.0 (>56); GLUCOSE, FASTING 165 MG/DL (60-100); POTASSIUM SERUM 3.2 MMOL/L (3.5-5.1); SODIUM LEVEL 140 MMOL/L (136-145)
[2022-06-23] MEDS ORDERED: ceFAZolin SOD 2 GM in IV 1 EA IV SCH (09:00)
[2022-06-23] MEDS: TOBRAMYCIN 0.3% OPHTH SOLN 5ML OS SCH ×2 (09:10→12:30)
[2022-06-23] MEDS: DOCUSATE SODIUM 100MG CAPSULE PO SCH (09:21)
[2022-06-23] MEDS: LORATADINE 10 MG TAB PO SCH (09:21)
[2022-06-23] MEDS: ATORVASTATIN 20 MG TAB PO SCH (09:21)
[2022-06-23 09:22] VITALS: BP 148/83
[2022-06-23] MEDS: CHLORTHALIDONE 25 MG TAB PO SCH (09:22)
[2022-06-23] MEDS: FENOFIBRATE 145MG TABLET (TRICOR) PO SCH (09:22)
[2022-06-23] MEDS: INSULIN LISPRO (NovoLOG) PER UNIT SC SCH ×2 (09:22→12:29)
[2022-06-23] MEDS: amLODIPine 5 MG TAB PO SCH (09:22)
[2022-06-23] MEDS: CARVedilol 12.5 MG TAB PO SCH (09:23)
[2022-06-23 09:28] LABS: ERYTHROCYTE SEDIMENTATION RATE 32 mm/hr (0-20)
[2022-06-23] MEDS ORDERED: POTASSIUM CHLORIDE 10MEQ SR TABLET PO ONE (12:55)
[2022-06-23] MEDS ORDERED: BACT800T5 PO (12:58)
== END 2022-06-23 14:21 | disposition home or self-care (01) | DRG 603 ==
LOC: M ED 11:47 → M ED INP 17:10 → M MSPAV 17:58 → OBSVTOIN 06-22 16:05
PROVIDERS: ADMIT Student in an Organized Health Care Education/Training Program; ATTEND Internal Medicine Nephrology
DX: L03.314 Cellulitis of groin (principal); E87.20 Acidosis, unspecified; I10 Essential (primary) hypertension; E66.9 Obesity, unspecified; F41.9 Anxiety disorder, unspecified; F32.A Depression, unspecified; D50.9 Iron deficiency anemia, unspecified; G47.33 Obstructive sleep apnea (adult) (pediatric); G20 Parkinson's disease; G89.29 Other chronic pain; E55.9 Vitamin D deficiency, unspecified; Z91.199 Patient's noncompliance with other medical treatment and regimen due to unspecified reason; M54.59 Other low back pain; Z94.7 Corneal transplant status; Z98.42 Cataract extraction status, left eye; Z87.891 Personal history of nicotine dependence; Z79.899 Other long term (current) drug therapy

== ENCOUNTER → 2022-07-14 | Outpatient (CLI) | payer MEDICARE ==
[~2022-07-14] MED LIST changes: +AMLO1TAB24 PO; +B-12100020 PO; -LOSA100T45 PO; +LOSA100T46 PO; +TOBR0.3S37 OS
== END ==
LOC: M PLAIMG 11:58
PROVIDERS: ATTEND Urology
DX: N20.2 Calculus of kidney with calculus of ureter (principal)

== ENCOUNTER → 2022-08-20 | Outpatient (REF) | payer MEDICARE ==
[2022-08-20 13:02] LABS: BASO % 0.5 % (0.0-1.0); EOS # 0.2 10^3/uL (0.0-0.5); EOS % 2.2 % (0.0-3.0); HEMATOCRIT 43.2 % (42.0-52.0); HEMOGLOBIN 13.7 g/dl (13.5-17.5); LYMPH # 2.8 10^3/uL (1.5-5.0); LYMPH % 32.4 % (24.0-44.0); MEAN CORPUSCULAR HEMOGLOBIN 25.4 pg (27.0-33.0); MEAN CORPUSCULAR HGB CONC 31.7 g/dl (32.0-36.5); MONO # 0.4 10^3/uL (0.0-0.8); NEUTROPHILS # 5.2 10^3/uL (1.5-8.5); NEUTROPHILS % 59.7 % (36.0-66.0); PLATELET COUNT, AUTOMATED 363 10^3/uL (150-450); WHITE BLOOD COUNT 8.6 10^3/uL (4.0-10.0)
[2022-08-20 13:26] LABS: HEMOGLOBIN A1c 8.6 % (4.0-6.0)
[2022-08-20 13:30] LABS: ALBUMIN 3.4 G/DL (3.2-5.2); ALKALINE PHOSPHATASE 117 U/L (46-116); ALT/SGPT 29 U/L (7.0-40); AST/SGOT 17 U/L (<34); BILIRUBIN,TOTAL 0.5 MG/DL (0.3-1.2); BLOOD UREA NITROGEN 12 MG/DL (9-23); CALCIUM LEVEL 9.9 MG/DL (8.5-10.1); CARBON DIOXIDE LEVEL 28 MMOL/L (20-31); CHLORIDE LEVEL 103 MMOL/L (98-107); CHOLESTEROL LEVEL 206 MG/DL (<200); CHOLESTEROL RISK RATIO 5.03 (<5); CREATININE FOR GFR 0.78 MG/DL (0.70-1.30); GLOMERULAR FILTRATION RATE > 60.0 (>56); GLUCOSE, FASTING 191 MG/DL (60-100); HDL CHOLESTEROL 40.9 MG/DL (>40); LDL CHOLESTEROL 115.5 MG/DL (<100); NON-HDL-C 165.1 MG/DL; POTASSIUM SERUM 3.9 MMOL/L (3.5-5.1); SODIUM LEVEL 140 MMOL/L (136-145); TOTAL PROTEIN 7.2 G/DL (5.7-8.2); TRIGLYCERIDES LEVEL 248 MG/DL (<150)
[2022-08-20 13:32] LABS: THYROID STIMULATING HORMONE 2.252 uIU/ML (0.55-4.78); TOTAL 25(OH) VITAMIN D 32.7 NG/ML (20.0-100.0)
== END ==
LOC: M SFHCADAM 10:58
PROVIDERS: ATTEND Physician Assistant Medical
DX: E11.9 Type 2 diabetes mellitus without complications (principal); E78.2 Mixed hyperlipidemia; G44.309 Post-traumatic headache, unspecified, not intractable; E55.9 Vitamin D deficiency, unspecified; Z79.899 Other long term (current) drug therapy

== ENCOUNTER → 2022-08-31 | Outpatient (CLI) | payer MEDICARE | LOC: M PAIN 09:15 | PROVIDERS: ATTEND Nurse Practitioner Family | DX: M79.10 Myalgia, unspecified site (principal); G89.29 Other chronic pain; E11.9 Type 2 diabetes mellitus without complications; I10 Essential (primary) hypertension; E55.9 Vitamin D deficiency, unspecified; G47.33 Obstructive sleep apnea (adult) (pediatric); G20 Parkinson's disease; Z86.59 Personal history of other mental and behavioral disorders; Z87.820 Personal history of traumatic brain injury; Z87.891 Personal history of nicotine dependence; E66.01 Morbid (severe) obesity due to excess calories; Z68.42 Body mass index [BMI] 45.0-49.9, adult; Z79.84 Long term (current) use of oral hypoglycemic drugs; Z79.85 Long-term (current) use of injectable non-insulin antidiabetic drugs; Z79.899 Other long term (current) drug therapy ==

== ENCOUNTER → 2023-01-13 | Outpatient (CLI) | payer OTHER, MEDICARE ==
[~2023-01-13] MED LIST changes: +LORA-1041 PO; -LORA-674 PO; -OXYB5TAB10 PO; +OXYB5TAB11 PO
== END ==
LOC: M PAIN 15:00
PROVIDERS: ATTEND Anesthesiology
DX: M79.10 Myalgia, unspecified site (principal); M25.511 Pain in right shoulder; Z87.820 Personal history of traumatic brain injury; Z87.891 Personal history of nicotine dependence; E66.01 Morbid (severe) obesity due to excess calories; Z68.42 Body mass index [BMI] 45.0-49.9, adult; Z79.84 Long term (current) use of oral hypoglycemic drugs; Z79.85 Long-term (current) use of injectable non-insulin antidiabetic drugs; Z79.899 Other long term (current) drug therapy

== ENCOUNTER → 2023-02-17 | Outpatient (REF) | payer OTHER, MEDICARE ==
[2023-02-17 15:49] LABS: HEMOGLOBIN A1c 6.4 % (4.0-6.0)
[2023-02-17 15:55] LABS: MAU/CREAT RATIO 45.6 MCG/MG (0.0-30.0)
[2023-02-17 15:57] LABS: ALKALINE PHOSPHATASE 81 U/L (46-116); ALT/SGPT 21 U/L (7.0-40); AST/SGOT 16 U/L (<34); BILIRUBIN,TOTAL 0.5 MG/DL (0.3-1.2); BLOOD UREA NITROGEN 18 MG/DL (9-23); CALCIUM LEVEL 9.3 MG/DL (8.5-10.1); CARBON DIOXIDE LEVEL 30 MMOL/L (20-31); CHLORIDE LEVEL 100 MMOL/L (98-107); CHOLESTEROL LEVEL 144 MG/DL (<200); CHOLESTEROL RISK RATIO 3.81 (<5); CREATININE FOR GFR 1.02 MG/DL (0.70-1.30); GLOMERULAR FILTRATION RATE > 60.0 (>56); GLUCOSE, FASTING 105 MG/DL (60-100); HDL CHOLESTEROL 37.7 MG/DL (>40); LDL CHOLESTEROL 70.1 MG/DL (<100); NON-HDL-C 106.3 MG/DL; POTASSIUM SERUM 3.8 MMOL/L (3.5-5.1); SODIUM LEVEL 140 MMOL/L (136-145); TOTAL PROTEIN 7.6 G/DL (5.7-8.2); TRIGLYCERIDES LEVEL 181 MG/DL (<150)
[2023-02-17 15:59] LABS: THYROID STIMULATING HORMONE 3.857 uIU/ML (0.55-4.78)
== END ==
LOC: M SFHCADAM 11:04
PROVIDERS: ATTEND Physician Assistant Medical
DX: E55.9 Vitamin D deficiency, unspecified (principal); E78.2 Mixed hyperlipidemia; E11.9 Type 2 diabetes mellitus without complications; E78.1 Pure hyperglyceridemia

== ENCOUNTER → 2023-03-17 | Outpatient (CLI) | payer OTHER, MEDICARE | LOC: M PAIN 11:00 | PROVIDERS: ATTEND Anesthesiology | DX: M79.18 Myalgia, other site (principal); M25.511 Pain in right shoulder; I10 Essential (primary) hypertension; E78.5 Hyperlipidemia, unspecified; F32.A Depression, unspecified; F41.9 Anxiety disorder, unspecified; E11.9 Type 2 diabetes mellitus without complications; E66.01 Morbid (severe) obesity due to excess calories; E55.9 Vitamin D deficiency, unspecified; G47.33 Obstructive sleep apnea (adult) (pediatric); M54.50 Low back pain, unspecified; Z87.891 Personal history of nicotine dependence; Z79.84 Long term (current) use of oral hypoglycemic drugs; Z79.891 Long term (current) use of opiate analgesic; Z79.899 Other long term (current) drug therapy ==

== ENCOUNTER → 2023-05-12 | Outpatient (CLI) | payer OTHER, MEDICARE ==
[~2023-05-12] MED LIST changes: -OXYB5TAB11 PO; +OXYB5TAB14 PO
== END ==
LOC: M PAIN 10:00
PROVIDERS: ATTEND Anesthesiology
DX: M25.511 Pain in right shoulder (principal); Z79.891 Long term (current) use of opiate analgesic; M54.50 Low back pain, unspecified; G89.29 Other chronic pain; M79.10 Myalgia, unspecified site; I10 Essential (primary) hypertension; E78.5 Hyperlipidemia, unspecified; F32.A Depression, unspecified; F41.9 Anxiety disorder, unspecified; E11.9 Type 2 diabetes mellitus without complications; E66.01 Morbid (severe) obesity due to excess calories; E55.9 Vitamin D deficiency, unspecified; D50.9 Iron deficiency anemia, unspecified; G47.33 Obstructive sleep apnea (adult) (pediatric); Z87.891 Personal history of nicotine dependence; Z79.84 Long term (current) use of oral hypoglycemic drugs; Z79.899 Other long term (current) drug therapy; Z68.41 Body mass index [BMI] 40.0-44.9, adult

== ENCOUNTER → 2023-07-12 | Outpatient (CLI) | payer OTHER, MEDICARE | LOC: M PAIN 09:45 | PROVIDERS: ATTEND Nurse Practitioner Family | DX: G89.29 Other chronic pain (principal); M25.511 Pain in right shoulder; M25.562 Pain in left knee; M25.561 Pain in right knee; M54.50 Low back pain, unspecified; I10 Essential (primary) hypertension; E78.5 Hyperlipidemia, unspecified; F32.A Depression, unspecified; F41.9 Anxiety disorder, unspecified; E11.9 Type 2 diabetes mellitus without complications; E66.01 Morbid (severe) obesity due to excess calories; E55.9 Vitamin D deficiency, unspecified; D50.9 Iron deficiency anemia, unspecified; G47.33 Obstructive sleep apnea (adult) (pediatric); G20.A1 Parkinson's disease without dyskinesia, without mention of fluctuations; Z87.891 Personal history of nicotine dependence; Z79.84 Long term (current) use of oral hypoglycemic drugs; Z79.891 Long term (current) use of opiate analgesic; Z79.899 Other long term (current) drug therapy; Z68.42 Body mass index [BMI] 45.0-49.9, adult ==

== ENCOUNTER → 2023-08-26 | Outpatient (REF) | payer OTHER, MEDICARE ==
[2023-08-26 15:03] LABS: BASO % 0.3 % (0.0-1.0); EOS # 0.2 10^3/uL (0.0-0.5); EOS % 2.3 % (0.0-3.0); HEMATOCRIT 43.9 % (42.0-52.0); HEMOGLOBIN 13.9 g/dl (13.5-17.5); LYMPH # 2.3 10^3/uL (1.5-5.0); LYMPH % 25.3 % (24.0-44.0); MEAN CORPUSCULAR HEMOGLOBIN 26.1 pg (27.0-33.0); MEAN CORPUSCULAR HGB CONC 31.7 g/dl (32.0-36.5); MEAN CORPUSCULAR VOLUME 82.5 fl (80.0-96.0); MONO # 0.5 10^3/uL (0.0-0.8); MONO % 5.6 % (2.0-8.0); NEUTROPHILS % 66.3 % (36.0-66.0); PLATELET COUNT, AUTOMATED 343 10^3/uL (150-450); RED BLOOD COUNT 5.32 10^6/uL (4.30-6.10)
[2023-08-26 15:06] LABS: ALBUMIN 3.6 G/DL (3.2-5.2); ALKALINE PHOSPHATASE 108 U/L (46-116); ALT/SGPT 21 U/L (7.0-40); AST/SGOT 13 U/L (<34); BILIRUBIN,TOTAL 0.6 MG/DL (0.3-1.2); BLOOD UREA NITROGEN 15 MG/DL (9-23); CARBON DIOXIDE LEVEL 28 MMOL/L (20-31); CHLORIDE LEVEL 105 MMOL/L (98-107); CHOLESTEROL LEVEL 248 MG/DL (<200); CHOLESTEROL RISK RATIO 6.29 (<5); CREATININE FOR GFR 0.87 MG/DL (0.70-1.30); GLOMERULAR FILTRATION RATE > 60.0 (>56); GLUCOSE, FASTING 155 MG/DL (60-100); HDL CHOLESTEROL 39.4 MG/DL (>40); LDL CHOLESTEROL 162.6 MG/DL (<100); NON-HDL-C 208.6 MG/DL; POTASSIUM SERUM 3.9 MMOL/L (3.5-5.1); SODIUM LEVEL 140 MMOL/L (136-145); TOTAL PROTEIN 7.3 G/DL (5.7-8.2); TRIGLYCERIDES LEVEL 230 MG/DL (<150)
[2023-08-26 15:09] LABS: THYROID STIMULATING HORMONE 2.454 uIU/ML (0.55-4.78); TOTAL 25(OH) VITAMIN D 26.9 NG/ML (20.0-100.0)
[2023-08-26 15:41] LABS: HEMOGLOBIN A1c 7.1 % (4.0-6.0)
== END ==
LOC: M SFHCADAM 07:45
PROVIDERS: ATTEND Physician Assistant Medical
DX: E55.9 Vitamin D deficiency, unspecified (principal); E78.2 Mixed hyperlipidemia; E11.9 Type 2 diabetes mellitus without complications

== ENCOUNTER → 2023-09-13 | Outpatient (CLI) | payer OTHER, MEDICARE | LOC: M PAIN 10:15 | PROVIDERS: ATTEND Nurse Practitioner Family | DX: M79.18 Myalgia, other site (principal); M25.511 Pain in right shoulder; I10 Essential (primary) hypertension; E78.5 Hyperlipidemia, unspecified; F32.A Depression, unspecified; F41.9 Anxiety disorder, unspecified; E11.9 Type 2 diabetes mellitus without complications; E66.01 Morbid (severe) obesity due to excess calories; E55.9 Vitamin D deficiency, unspecified; D50.9 Iron deficiency anemia, unspecified; G47.33 Obstructive sleep apnea (adult) (pediatric); M25.561 Pain in right knee; M25.562 Pain in left knee; Z87.891 Personal history of nicotine dependence; Z68.41 Body mass index [BMI] 40.0-44.9, adult; Z79.84 Long term (current) use of oral hypoglycemic drugs; Z79.899 Other long term (current) drug therapy ==

== ENCOUNTER → 2024-05-29 | Outpatient (REF) | payer MEDICARE ==
[2024-05-29 13:00] LABS: BASO % 0.3 % (0.0-1.0); EOS # 0.3 10^3/uL (0.0-0.5); EOS % 2.9 % (0.0-3.0); HEMATOCRIT 41.5 % (42.0-52.0); LYMPH # 2.7 10^3/uL (1.5-5.0); MEAN CORPUSCULAR HEMOGLOBIN 25.8 pg (27.0-33.0); MEAN CORPUSCULAR HGB CONC 31.3 g/dl (32.0-36.5); MEAN CORPUSCULAR VOLUME 82.5 fl (80.0-96.0); MONO # 0.6 10^3/uL (0.0-0.8); MONO % 6.2 % (2.0-8.0); NEUTROPHILS # 5.3 10^3/uL (1.5-8.5); NEUTROPHILS % 60.3 % (36.0-66.0); PLATELET COUNT, AUTOMATED 369 10^3/uL (150-450); RED BLOOD COUNT 5.03 10^6/uL (4.30-6.10); WHITE BLOOD COUNT 8.8 10^3/uL (4.0-10.0)
[2024-05-29 13:35] LABS: CREATININE, URINE 99.2 MG/DL; MAU/CREAT RATIO 109.8 MCG/MG (0.0-30.0)
[2024-05-29 13:37] LABS: ALBUMIN 3.2 G/DL (3.2-5.2); ALKALINE PHOSPHATASE 124 U/L (40-129); ALT/SGPT 14 U/L (7.0-40); AST/SGOT < 8 U/L (<34); BILIRUBIN,TOTAL 0.4 MG/DL (0.3-1.2); BLOOD UREA NITROGEN 22 MG/DL (9-23); CALCIUM LEVEL 9.5 MG/DL (8.5-10.1); CARBON DIOXIDE LEVEL 29 MMOL/L (20-31); CHLORIDE LEVEL 105 MMOL/L (98-107); CHOLESTEROL LEVEL 157 MG/DL (<200); CHOLESTEROL RISK RATIO 4.49 (<5); CREATININE FOR GFR 0.82 MG/DL (0.70-1.30); GLOMERULAR FILTRATION RATE > 60.0 (>56); GLUCOSE, FASTING 163 MG/DL (60-100); HDL CHOLESTEROL 34.9 MG/DL (>40); LDL CHOLESTEROL 68.5 MG/DL (<100); NON-HDL-C 122.1 MG/DL; POTASSIUM SERUM 3.9 MMOL/L (3.5-5.1); SODIUM LEVEL 141 MMOL/L (136-145); TRIGLYCERIDES LEVEL 268 MG/DL (<150)
[2024-05-29 13:39] LABS: THYROID STIMULATING HORMONE 2.893 uIU/ML (0.55-4.78)
== END ==
LOC: M SFHCADAM 09:52
PROVIDERS: ATTEND Physician Assistant Medical
DX: E11.65 Type 2 diabetes mellitus with hyperglycemia (principal); I10 Essential (primary) hypertension; E78.2 Mixed hyperlipidemia; E78.1 Pure hyperglyceridemia; E55.9 Vitamin D deficiency, unspecified

== ENCOUNTER → 2024-06-08 | Outpatient (REF) | payer MEDICARE ==
[2024-06-08 14:15] LABS: FERRITIN 367.9 NG/ML (10.5-307.3); PERCENT SATURATION 17.7 % (19.7-50.0)
[2024-06-08 14:17] LABS: FOLATE 13.8 NG/ML (>5.4)
[2024-06-08 14:27] LABS: HEMOGLOBIN A1c 6.9 % (4.0-6.0)
== END ==
LOC: M SFHCADAM 10:01
PROVIDERS: ATTEND Physician Assistant Medical
DX: E11.65 Type 2 diabetes mellitus with hyperglycemia (principal); E78.2 Mixed hyperlipidemia; E78.1 Pure hyperglyceridemia; E55.9 Vitamin D deficiency, unspecified

== ENCOUNTER → 2024-11-20 | Outpatient (REF) | payer MEDICARE ==
[~2024-11-20] MED LIST changes: -RA T500C2 PO; +TURM500C10 PO
[2024-11-20 14:07] LABS: BASO # 0.1 10^3/uL (0.0-0.2); BASO % 0.6 % (0.0-1.0); EOS # 0.2 10^3/uL (0.0-0.5); EOS % 2.6 % (0.0-3.0); LYMPH # 2.3 10^3/uL (1.5-5.0); LYMPH % 25.3 % (24.0-44.0); MONO # 0.6 10^3/uL (0.0-0.8); MONO % 6.5 % (2.0-8.0); NEUTROPHILS # 5.9 10^3/uL (1.5-8.5); NEUTROPHILS % 64.7 % (36.0-66.0); PLATELET COUNT, AUTOMATED 371 10^3/uL (150-450)
[2024-11-20 14:09] LABS: IRON (FE) 56 UG/DL (65-175); TOTAL 25(OH) VITAMIN D 30.4 NG/ML (20.0-100.0)
[2024-11-20 14:10] LABS: ALT/SGPT 22 U/L (7.0-40); AST/SGOT 17 U/L (<34); CALCIUM LEVEL 9.4 MG/DL (8.5-10.1); CARBON DIOXIDE LEVEL 27 MMOL/L (20-31); CHLORIDE LEVEL 104 MMOL/L (98-107); CHOLESTEROL LEVEL 237 MG/DL (<200); CHOLESTEROL RISK RATIO 5.11 (<5); CREATININE FOR GFR 0.73 MG/DL (0.70-1.30); FREE T4 1.03 NG/DL (0.89-1.76); GLOMERULAR FILTRATION RATE > 90.0 (>56); LDL CHOLESTEROL 129.7 MG/DL (<100); NON-HDL-C 190.7 MG/DL; PERCENT SATURATION 18.7 % (19.7-50.0); POTASSIUM SERUM 4.1 MMOL/L (3.5-5.1); SODIUM LEVEL 138 MMOL/L (136-145); TRIGLYCERIDES LEVEL 305 MG/DL (<150); VITAMIN B12 LEVEL 407 PG/ML (211-911)
[2024-11-20 14:29] LABS: ESTIMATED AVERAGE GLUCOSE 217.0 MG/DL (60-110)
== END ==
LOC: M SFHCADAM 08:56
PROVIDERS: ATTEND Physician Assistant Medical
DX: E11.65 Type 2 diabetes mellitus with hyperglycemia (principal); E78.2 Mixed hyperlipidemia; E78.1 Pure hyperglyceridemia; E55.9 Vitamin D deficiency, unspecified; D50.9 Iron deficiency anemia, unspecified

== ENCOUNTER → 2024-12-26 | Outpatient (REF) | payer MEDICARE ==
[2024-12-26 13:34] LABS: BASO # 0.0 10^3/uL (0.0-0.2); BASO % 0.4 % (0.0-1.0); EOS # 0.3 10^3/uL (0.0-0.5); EOS % 2.6 % (0.0-3.0); LYMPH # 2.4 10^3/uL (1.5-5.0); LYMPH % 23.4 % (24.0-44.0); MONO # 0.6 10^3/uL (0.0-0.8); MONO % 5.8 % (2.0-8.0); NEUTROPHILS # 6.8 10^3/uL (1.5-8.5); NEUTROPHILS % 67.5 % (36.0-66.0); PLATELET COUNT, AUTOMATED 397 10^3/uL (150-450)
[2024-12-26 14:04] LABS: FREE T4 1.09 NG/DL (0.89-1.76)
[2024-12-26 14:05] LABS: TOTAL 25(OH) VITAMIN D 33.1 NG/ML (20.0-100.0); VITAMIN B12 LEVEL 918.0 PG/ML (211-911)
[2024-12-26 14:06] LABS: IRON (FE) 52.0 UG/DL (65-175)
[2024-12-26 14:23] LABS: ESTIMATED AVERAGE GLUCOSE 200.0 MG/DL (60-110)
[2024-12-26 14:50] LABS: ALT/SGPT 28.0 U/L (7.0-40); AST/SGOT 31.0 U/L (<34); CALCIUM LEVEL 9.6 MG/DL (8.5-10.1); CARBON DIOXIDE LEVEL 25.0 MMOL/L (20-31); CHLORIDE LEVEL 102.0 MMOL/L (98-107); CHOLESTEROL LEVEL 133.0 MG/DL (<200); CHOLESTEROL RISK RATIO 3.93 (<5); CREATININE FOR GFR 1.1 MG/DL (0.70-1.30); GLOMERULAR FILTRATION RATE 77.8 (>56); LDL CHOLESTEROL 56.6 MG/DL (<100); NON-HDL-C 99.2 MG/DL; POTASSIUM SERUM 3.9 MMOL/L (3.5-5.1); SODIUM LEVEL 142.0 MMOL/L (136-145); TRIGLYCERIDES LEVEL 213.0 MG/DL (<150)
== END ==
LOC: M SFHCADAM 09:32
PROVIDERS: ATTEND Physician Assistant Medical
DX: E11.65 Type 2 diabetes mellitus with hyperglycemia (principal); I10 Essential (primary) hypertension; E78.2 Mixed hyperlipidemia; E55.9 Vitamin D deficiency, unspecified